=== PATIENT | female | born 1995 | race Caucasian/White ===

== ENCOUNTER 2017-09-12 09:09 | Emergency (ER) | payer OTHER, BC ==
[2017-09-12 10:02] LABS: Absolute Lymphocytes (CBC) 2.2 K/uL (0.7-4.9); Absolute Monocytes 0.4 K/uL (0.1-1.3); Absolute Neutrophil 6.3 K/uL (1.8-8.0); Basophils % 0.4 % (0-1.3); Eosinophils % 2.8 % (0-4.4); Hematocrit 38.6 % (36.0-45.0); Lymphocytes % 24.1 % (15.3-44.8); MCH 29.9 pg (27.0-35.0); MCV 90.6 fL (80-100); MPV 8.6 fL (7.6-11.3); Monocytes % 4.6 % (3.3-12.3); RBC Red Blood Cell Count 4.26 M/uL (3.86-4.86)
[2017-09-12 10:18] LABS: Potassium 4.1 mmol/L (3.5-5.1)
--- NOTE | 2017-09-12 11:03 | RAD REPORT ---
EXAM DESCRIPTION: CT - Head C Spine Cap Daphne Lyles - 09/12/2017 10:27 am CLINICAL HISTORY: Head and neck injury with chest and abdominal pain lawnmower injury with trauma. H ead and neck pain. TECHNIQUE: Computed axial tomography of the head and cervical spine was obtained. Coronal and sagitt al reconstruction was performed Computed axial tomography of the chest, abdomen and pelvis was obtained. Contrast was not requested. All CT scans are performed using dose optimization technique as appropriate and may include automated exposure control or mA/KV adjustment according to patient size. COMPARISON: None FINDINGS The evaluation of the mediastinum, katy, vessels, solid organs and bowel is limited secondary to lack of contrast administration. An intracranial bleed is not seen. The ventricles are normal caliber. An extra-axial fluid collection is not present. Fluid within the sinuses/mastoids is not seen A cervical fracture is not seen. No dislocation is noted. A mediastinal hematoma is not seen. A pleural effusion is not present. A pericardial effusion is not seen. A lung contusion is not present. Calcified hilar lymph nodes are present. Calcified lung granul omas are seen. The liver, spleen, pancreas, adrenals, kidneys and bladder appear grossly normal. A small umbilical hernia is present. A 3.7 centimeter right ovarian cyst is suspected without significant free-fluid. . IMPRESSION: 1. No acute intracranial abnormality is seen. 2. A cervical fracture is not visualized. If the patient continues have symptoms to suggest intracran ial/spinal cord pathology then MRI be recommended. 3. No traumatic injury involving the chest/ abdomen/pelvis.
--- NOTE | 2017-09-12 11:04 | EDPHYS ---
Physician Documentation [facility] Name: Pauline Sandra Age: 21 yrs Sex: Female : 1995 Arrival Date: 09/12/2017 Time: 09:09 Bed 4 Private MD: ED Physician Nazario Wade HPI: 09/12 09:32 This 21 yrs old Female presents to ER via EMS with complaints of Trauma ps1 Complaint. 09:32 patient riding lawnmower and fell backwards on her. She did not hit head. No LOC. Has ps1 back pain. Pain rated moderate. No FND. . 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 - Immunization history: Last tetanus immunization: - up to date. - Social history:: Smoking status: Patient uses tobacco products, denies chronic smoking, but will smoke occasionally, Patient/guardian denies using alcohol, street drugs. - Ebola Screening: : Patient negative for fever greater than or equal to 101.5 degrees Fahrenheit, and additional compatible Ebola Virus Disease symptoms Patient denies exposure to infectious person Patient denies travel to an Ebola-affected area in the 21 days before illness onset No symptoms or risks identified at this time. ROS: 09:32 Constitutional: Negative for fever, chills, and weight loss, Eyes: Negative for injury, ps1 pain, redness, and discharge, Cardiovascular: Negative for chest pain, palpitations, and edema, Respiratory: Negative for shortness of breath, cough, wheezing, and pleuritic chest pain, Abdomen/GI: Negative for abdominal pain, nausea, vomiting, diarrhea, and constipation, MS/Extremity: Negative for injury and deformity, Skin: Negative for injury, rash, and discoloration, Neuro: Negative for headache, weakness, numbness, tingling, and seizure. 09:32 Back: Positive for pain at rest, pain with movement, of the lumbar area. Exam: 09:32 Constitutional: This is a well developed, well nourished patient who is awake, alert, ps1 and in no acute distress. Head/Face: Normocephalic, atraumatic. Eyes: Pupils equal round and reactive to light, extra-ocular motions intact. Lids and lashes normal. Conjunctiva and sclera are non-icteric and not injected. Chest/axilla: Normal chest wall appearance and motion. Nontender with no deformity. No lesions are appreciated. Cardiovascular: Regular rate and rhythm. No gallops, murmurs, or rubs. Normal PMI, no JVD. No pulse deficits. Respiratory: Lungs have equal breath sounds bilaterally, clear to auscultation and percussion. No rales, rhonchi or wheezes noted. No increased work of breathing, no retractions or nasal flaring. Abdomen/GI: Soft, non-tender, with normal bowel sounds. No distension or tympany. No guarding or rebound. No evidence of tenderness throughout. Skin: Warm, dry with normal turgor. Normal color with no rashes, no lesions, and no evidence of cellulitis. MS/ Extremity: Pulses equal, no cyanosis. Neurovascular intact. Full, normal range of motion. Neuro: Awake and alert, GCS 15, oriented to person, place, time, and situation. Cranial nerves II-XII grossly intact. Sensory grossly intact. 09:32 Back: pain, that is moderate, of the lumbar area, ROM is painful, lordosis, that is moderate, muscle spasm, is appreciated in the left low back and right low back. Vital Signs: 09:14 BP 116 / 64; Pulse 97; Resp 16; Temp 98.2; Pulse Ox 98% on R/A; Weight 116.12 kg; iw Height 5 ft. 7 in. (170.18 cm); Pain 7/10; 09:27 BP 114 / 71; Pulse 77; Resp 14; Pulse Ox 99% on R/A; ch 11:02 BP 103 / 63; Pulse 71; Resp 14; Temp 98.3; Pulse Ox 99% on R/A; Pain 6/10; ch 11:37 BP 109 / 73; Pulse 58; Resp 18; Temp 97.8; Pulse Ox 99% on R/A; Pain 6/10; ch 09:14 Body Mass Index 40.09 (116.12 kg, 170.18 cm) iw [place] Coma Score: 09:29 Eye Response: spontaneous(4). Verbal Response: oriented(5). Motor Response: obeys ch commands(6). Total: 15. 11:02 Eye Response: spontaneous(4). Verbal Response: oriented(5). Motor Response: obeys ch commands(6). Total: 15. Trauma Score (Adult): 09:14 Eye Response: spontaneous(1); Verbal Response: oriented(1); Motor Response: obeys iw commands(2); Systolic BP: > 89 mm Hg(4); Respiratory Rate: 10 to 29 per min(4); Migel Score: 15; Trauma Score: 12 11:02 Eye Response: spontaneous(1); Verbal Response: oriented(1); Motor Response: obeys ch commands(2); Systolic BP: > 89 mm Hg(4); Respiratory Rate: 10 to 29 per min(4); [place] Score: 15; Trauma Score: 12 MDM: 09:37 Patient medically screened. ps1 11:18 Differential diagnosis: C spine fracture, T spine fracture, L spine fracture. Data ps1 reviewed: vital signs, nurses notes, lab test result(s), radiologic studies, CT scan. Counseling: I had a detailed discussion with the patient and/or guardian regarding: radiology results, to return to the emergency department if symptoms worsen or persist or if there are any questions or concerns that arise at home. ED course: no acute traumatic injury identified. . 09/12 09:32 Order name: Basic Metabolic Panel; Complete Time: 10:34 ps1 09/12 09:32 Order name: CBC with Diff; Complete Time: 10:12 ps1 09/12 09:32 Order name: CT Traumagram (Head C Spine CAP wo con); Complete Time: 11:04 ps1 09/12 09:32 Order name: Creatinine for Radiology; Complete Time: 10:34 ps1 09/12 09:32 Order name: Type And Screen ps1 09/12 09:32 Order name: Labs collected and sent; Complete Time: 10:00 ps1 Administered Medications: No medications were administered Disposition: 09/12/17 11:21 Discharged to Home. Impression: Acute lower back pain, lumbago, traumatic injury from lawnmower accident, fall. - Condition is Stable. - Discharge Instructions: Lumbosacral Strain, Muscle Cramps and Spasms. - Prescriptions for Anaprox DS 550 mg Oral Tablet - take 1 tablet by ORAL route every 12 hours As needed; 20 tablet. Robaxin 500 mg Oral Tablet - take 2 tablet by ORAL route every 6 hours As needed; 40 tablet. Medrol (Fabian) 4 mg Oral Tablets, Dose Pack - take 1 tablet by ORAL route as directed - follow package instructions; 1 packet. - Medication Reconciliation Form, Thank You Letter, Antibiotic Education, Prescription Opioid Use form. - Work release form (09/12/17 11:40). - Follow up: Private Physician; When: As needed; Reason: Recheck today's complaints, Continuance of care, Re-evaluation by your physician. Follow up: Emergency Department; When: As needed; Reason: Worsening of condition. - Problem is new. - Symptoms have improved. Signatures: Dispatcher [employer] Vandana Taylor RN RN ch Williams, Irene, RN RN Nazario Wade MD MD ps1 Corrections: (The following items were deleted from the chart) 11:18 11:03 Hospitalization Ordered by Flavia Martinez MD for Inpatient Admission. Preliminary ps1 diagnosis is Hepatic encephalopathy; Hyperammonemia; Altered Mental Status. Bed requested for Intensive Care Unit. Status is Inpatient Admission. Condition is Fair. Problem is an acute exacerbation. Symptoms are unchanged. UTI on Admission? No. ps1 11:20 11:03 Data reviewed: vital signs, nurses notes, lab test result(s), radiologic studies, ps1 CT scan, and as a result, I will admit patient, Place NG tube and give lactulose, ps1 11:40 11:21 09/12/2017 11:21 Discharged to Home. Impression: Acute lower back pain; lumbago; ch traumatic injury from lawnmower accident; fall. Condition is Stable. Forms are Medication Reconciliation Form, Thank You Letter, Antibiotic Education, Prescription Opioid Use. Follow up: Private Physician; When: As needed; Reason: Recheck today's complaints, Continuance of care, Re-evaluation by your physician. Follow up: Emergency Department; When: As needed; Reason: Worsening of condition. Problem is new. Symptoms have improved. ps1
--- NOTE | 2017-09-12 11:04 | ER ---
Nurse's Notes [facility] Name: Pauline Sandra Age: 21 yrs Sex: Female : 1995 Arrival Date: 09/12/2017 Time: 09:09 Bed 4 Private MD: Diagnosis: Acute lower back pain;lumbago;traumatic injury from lawnmower accident;fall Presentation: 09/12 09:10 Presenting complaint: EMS states: pt was on a riding senior sourcing manager, ran over a "tarp", iw mower then tipped back and landed on top of her hips and legs, pt denies hitting head, denies chest pain, EMS reports that mower was removed from pt quickly, pt c/o low back, and familia hip pain, /10. denies numbness or tingling in legs. Care prior to arrival: Cervical collar in place. Placed on backboard. Mechanism of Injury: Crush injury from riding senior sourcing manager that weighed approximately 450 pounds. Patient was trapped for seconds. Trauma event details: Injury occurred in the [facility], Injury occurred: at home. Injury occurred: September 12, 2017 Injury occurred at: 08:40. 09:10 Method Of Arrival: EMS: [facility] iw 09:10 Acuity: BARBY 2 iw 09:18 Transition of care: patient was not received from another setting of care. Onset of iw symptoms was September 12, 2017. Risk Assessment: Do you want to hurt yourself or someone else? Patient reports no desire to harm self or others. Initial Sepsis Screen: Does the patient meet any 2 criteria? No. Patient's initial sepsis screen is negative. Does the patient have a suspected source of infection? No. Patient's initial sepsis screen is negative. BIT GATHERER: 11:39 LMP 08/26/2017 Trauma Activation: Not Applicable Physician: ED Physician; Name: ; Notified At: ; Arrived At: Physician: General Surgeon; Name: ; Notified At: ; Arrived At: Physician: Radiology; Name: ; Notified At: ; Arrived At: Physician: Respiratory; Name: ; Notified At: ; Arrived At: Physician: Lab; Name: ; Notified At: ; Arrived At: Historical: - Allergies: 09:16 NKA; iw - Home Meds: 09:16 None [Active]; iw - PMHx: 09:16 None; iw - PSHx: 09:16 None; iw - Immunization history:: Adult Immunizations up to date, Last tetanus immunization: up to date. - Immunization history: Last tetanus immunization: - up to date. - Social history:: Smoking status: Patient uses tobacco products, denies chronic smoking, but will smoke occasionally, Patient/guardian denies using alcohol, street drugs. - Ebola Screening: : Patient negative for fever greater than or equal to 101.5 degrees Fahrenheit, and additional compatible Ebola Virus Disease symptoms Patient denies exposure to infectious person Patient denies travel to an Ebola-affected area in the 21 days before illness onset No symptoms or risks identified at this time. Screenin:17 Abuse screen: Denies threats or abuse. Denies injuries from another. Tuberculosis iw screening: No symptoms or risk factors identified. 09:27 Nutritional screening: No deficits noted. Fall Risk None identified. ch Primary Survey: 09:17 A: Airway: patent. Breathing/Chest: Respiratory pattern: regular, Respiratory effort: iw spontaneous, unlabored, Breath sounds: clear, bilaterally. Chest inspection: symmetrical rise and fall of the chest. Circulation: Cardiac rhythm: sinus rhythm Heart tones present. Pulses: palpable right radial artery, right posterior tibial artery, left radial artery and left posterior tibial artery. Skin color: pink, Skin temperature: warm, dry. Disability Alert. 09:23 Reassessment Airway Airway Patent Oxygen No O2 Breathing/Chest Respiratory pattern iw Regular Respiratory effort Spontaneous Unlabored Chest inspection Symmetrical Circulation Heart tones Present Disability Alert. Secondary Survey: 09:18 HEENT: No deficits noted. Gastrointestinal: Abdomen is soft, flat, Palpation No deficit iw noted. Musculoskeletal: Range of motion: intact in all extremities, Reports pain in back and pelvis. Assessment: 09:27 General: Appears in no apparent distress. comfortable, Behavior is calm, cooperative, ch appropriate for age. 09:59 Reassessment: Patient appears in no apparent distress at this time. Patient and/or ch family updated on plan of care and expected duration. Pain level reassessed. Patient is alert, oriented x 3, equal unlabored respirations, skin warm/dry/pink. 10:00 Reassessment: pt states she does not want any pain medications at this time. pt states ch she does not want any medications. pt has call jerson, instructed to notify us if that changes. 11:02 Reassessment: Patient appears in no apparent distress at this time. No changes from previously documented assessment. Patient and/or family updated on plan of care and expected duration. Pain level reassessed. Patient is alert, oriented x 3, equal unlabored respirations, skin warm/dry/pink. Vital Signs: 09:14 BP 116 / 64; Pulse 97; Resp 16; Temp 98.2; Pulse Ox 98% on R/A; Weight 116.12 kg; iw Height 5 ft. 7 in. (170.18 cm); Pain 7/10; 09:27 BP 114 / 71; Pulse 77; Resp 14; Pulse Ox 99% on R/A; ch 11:02 BP 103 / 63; Pulse 71; Resp 14; Temp 98.3; Pulse Ox 99% on R/A; Pain 6/10; ch 11:37 BP 109 / 73; Pulse 58; Resp 18; Temp 97.8; Pulse Ox 99% on R/A; Pain 6/10; ch 09:14 Body Mass Index 40.09 (116.12 kg, 170.18 cm) iw [place] Coma Score: 09:29 Eye Response: spontaneous(4). Verbal Response: oriented(5). Motor Response: obeys commands(6). Total: 15. 11:02 Eye Response: spontaneous(4). Verbal Response: oriented(5). Motor Response: obeys commands(6). Total: 15. Trauma Score (Adult): 09:14 Eye Response: spontaneous(1); Verbal Response: oriented(1); Motor Response: obeys commands(2); Systolic BP: > 89 mm Hg(4); Respiratory Rate: 10 to 29 per min(4); Migel Score: 15; Trauma Score: 12 11:02 Eye Response: spontaneous(1); Verbal Response: oriented(1); Motor Response: obeys commands(2); Systolic BP: > 89 mm Hg(4); Respiratory Rate: 10 to 29 per min(4); [place] Score: 15; Trauma Score: 12 ED Course: 09:09 Patient arrived in ED. ch 09:11 Vandana Akhtar, STANLEY is Primary Nurse. ch 09:15 Triage completed. iw 09:16 Nazario Wade MD is Attending Physician. ps1 09:17 Patient has correct armband on for positive identification. Bed in low position. Side iw rails up X2. Pulse ox on. NIBP on. 09:17 Patient maintains SpO2 saturation greater than 95% on room air. Thermoregulation: warm iw blanket given to patient. 09:18 Arm band placed on. iw 09:27 No provider procedures requiring assistance completed. ch 09:29 Patient maintains SpO2 saturation greater than 95% on room air. ch 09:39 Radiology exam delayed due to test not completed at this time. vr 10:00 Inserted saline lock: 20 gauge in right antecubital area, using aseptic technique. Blood collected. 10:27 CT completed. Patient tolerated procedure well. Patient moved to CT via stretcher. vr Patient moved back from CT. 10:28 CT Traumagram (Head C Spine CAP wo con) In Process Unspecified. EDMS 11:03 Flavia Martinez MD is Hospitalizing Provider. ps1 11:37 IV discontinued, intact, bleeding controlled, No redness/swelling at site. Pressure dressing applied. Administered Medications: No medications were administered Intake: 09:29 PO: 0ml; Total: 0ml. ch Outcome: 11:03 Decision to Hospitalize by Provider. ps1 11:21 Discharge ordered by . ps1 11:37 Discharged to home ambulatory, with family. ch 11:37 Condition: stable 11:37 Discharge instructions given to patient, family, Instructed on discharge instructions, follow up and referral plans. no drinking with medication, no driving heavy equipment, medication usage, Demonstrated understanding of instructions, follow-up care, medications, Prescriptions given X 3. 11:39 Patient's length of stay in the Emergency Department was greater than [address] resultsPatient's length of stay extended due to 11:40 Patient left the ED. Signatures: Dispatcher [employer] EDMS Vandana Akhtar RN RN ch Williams, Irene, RN RN iw Davis, Victoria vr Singer, Phillip, MD MD ps1
[2017-09-12 11:56] VITALS: O2SAT 99
[2017-09-12 12:05] VITALS: BP 109/73; TEMP 97.8
== END 2017-09-12 11:40 | disposition home or self-care (01) ==
LOC: ER 09:09
DX: M54.5 Low back pain (principal); W31.89XA Contact with other specified machinery, initial encounter; Y93.89 Activity, other specified; Y92.9 Unspecified place or not applicable; Z72.0 Tobacco use
CPT/HCPCS: 36415; 70450; 71250; 72125; 80048; 85025; 86850; 86870; 86900; 86901; 99285

== ENCOUNTER 2022-12-30 23:29 | Emergency (ER) | payer BC, SELFPAY ==
--- OUTSIDE RECORDS SUMMARY | 2022-12-30 23:36 | XMS REPORT | Continuity of Care Document ---
:1995 Author Organization [facility] t Address [address] [facility] [address] [place] [address] Care Team Providers Name Role Phone Pcp, Patient Does Not Have A Primary Care Physician [id number] AMANDA STEVENSON Attending Clinician Unavailable Amanda Stevenson MD Attending Clinician Doctor Unassigned, [place] Attending Clinician Unavailable Pat Page MD Attending Clinician Cameron Lewis CRNA Attending Clinician Teddy Saldivar MD, [place] Attending Clinician Only, [facility] Test Attending Clinician Unavailable Artemio Zuluaga MD Attending Clinician ARTEMIO ZULUAGA Attending Clinician Unavailable Ultrasound, [facility] Attending Clinician Unavailable Aysha Garcia MD, [place] Attending Clinician [phone], [facility] Lab Attending Clinician Unavailable Nurse, [facility] Attending Clinician Unavailable Lorna Juan PA-C Attending Clinician MARIO TA Attending Clinician Unavailable LORNA JUAN Attending Clinician Unavailable Gildardo Ogden MD Attending Clinician 5, [facility] Usg Room Attending Clinician Unavailable Ritchie MD, Darshan F Attending Clinician Faculty, Leobardo [facility] Attending Clinician Unavailable Nilam Lafleur MD Attending Clinician VINEET GERARDO Attending Clinician Unavailable Vineet Gerardo MD Attending Clinician Fabián ROMERO Fam Newmanan Attending Clinician Lab, Adc Fam Pob I Attending Clinician Unavailable Nancy Torres Attending Clinician Amanda Stevenson MD Admitting Clinician AMANDA STEVENSON Admitting Clinician Unavailable Payers Payer Name Policy Type Policy Number Effective Date Expiration Date Tasia zhu [employer] [place] [id number] 2018 00:00:00 Problems Condition Condition Condition Status Onset Resolution Last Treating Co mments Source Name Details Category Date Date Treatment Clinician Date Urinary Urinary Disease Active 2020-03 Overview: Univ ers retention retention 03-25 Formattin i ty of 00:00: g of this [place] 00 note Medical might be Branch different from the original. Postpartu m Vacuum-ass Vacuum-ass Disease Active 2020-03 U nivers isted isted -10 ity of vaginal vaginal 00:00: [place] delivery delivery 00 Medica l Branch Obstetric Obstetric Disease Active 2020-03 Overview: Univers vaginal vaginal 1-10 Formattin ity o f laceration laceration 00:00: g of this [place] without without 00 note Medical perineal perineal might be Bran ch laceration laceration different from the original. Right sulcal laceratio n- repaired in the OR Encounter Encounter Disease Active 2020-03 Uni vers for for 03-22 ity of elective elective 00:00: [place] induction induction 00 Medi brittany of labor of labor Branch Morbid Morbid Disease Active Univers obesity obesity 7- it[place] of with body [place] mass index mass index 00 Me dical of of Branch 40.0-49.9 40.0-49.9 Morbid Morbid Disease Active Univers obesity obesity 7-02 ity of with body with body 00:00[place] mass index mass index 00 Me dical of of Branch 40.0-49.9 40.0-49.9 28 weeks 28 weeks Disease Active 2021-0 Unive rs gestation gestation 6-08 ity of of of 00:00: [place] 00 [facility] 32 weeks 32 weeks Disease Active 2021-0 Unive rs gestation gestation 6-08 ity of of of 00:00: [place] 00 [facility] 17 weeks 17 weeks Disease Active 2021-0 Unive rs gestation gestation 6-08 ity of of of 00:00: [place] 00 [facility] 20 weeks 20 weeks Disease Active 2021-0 Unive rs gestation gestation 6-08 ity of of of 00:00: [place] 00 [facility] 24 weeks 24 weeks Disease Active 2021-0 Unive rs gestation gestation 6-08 ity of of of 00:00: [place] 00 [facility] 34 weeks 34 weeks Disease Active 2021-0 Unive rs gestation gestation 6-08 ity of of of 00:00: [place] 00 [facility] 36 weeks 36 weeks Disease Active 1-0 Unive rs gestation gestation 6-08 ity of of of 00:00: [place] 00 [facility] 37 weeks 37 weeks Disease Active 1-0 Unive rs gestation gestation 6-08 ity of of of 00:00: [place] 00 [facility] 38 weeks 38 weeks Disease Active 1-0 Unive rs gestation gestation 6-08 ity of of of 00:00: [place] 00 [facility] High-risk High-risk Disease Active 2020-0 Uni vers 5-24 ity of in third in third 00:00: [place] trimester trimester 00 [facility] Uses oral Uses oral Disease Active Overview: Univers contracept contracept 4-08 06/19/18 - ity of ion ion 00:00: OCPs [place] 00 started Medical Branch Encounter Encounter Disease Active Overview: Univers for for 3-11 05/23/18 - ity of surveillan surveillan 00:00: Nexplanon [place] ce of ce of 00 implant Medical implantabl implantabl removed [place] e e by IR subdermal subdermal contracept contracept sofia sofia History of History of Disease Active Overview : Univers ovarian ovarian 5-13 06/27/18 - ity o f cyst cyst 00:00: pelvic US [place] 00 was Medical normal Branch Obesity Obesity Disease Active Univers affecting affecting 1-26 it[place] of 00:[place] in third in third 00 Medica l trimester trimester Bran ch Morbid Morbid Disease Active Univers obesity obesity 1-26 ity of 00:00: [address] Branch Tobacco Tobacco Disease Active Overview: Univ ers use use 06-06 Formattin ity of disorder disorder 00:00: g of this [place] 00 note Medical might be Branch different from the original. Stopped smoking in July 2020 Allergies, Adverse Reactions, Alerts Allergy Allergy Status Severity Reaction(s) Onset Inactive Treating Comm ents Source Name Type Date Date Clinician NO KNOWN Drug Active Univers ALLERGIE Class ity of S [facility] Social History Social Habit Start Date Stop Date Quantity Comments Source ASSERTION 2020-05-04 University of 00:00:00 [facility] Sexual orientation Univer sity of [facility] History SDNY University o [facility] SDOH University o f Alcohol Std Drinks [facility] History [facility] o f Alcohol Binge [facility] Branch Exposure to 2022-03-02 2022-03-12 Not sure University of SARS-CoV-2 (event) 00:00:00 10:08:00 [facility] History of Social 2022-03-12 2022-03-12 Univers ity of function 00:00:00 00:00:00 [facility] Education 2021-01-20 2021-01-20 13 University of 00:00:00 00:00:00 [facility] History of tobacco 2020-08-05 Cigarette Smoker University of use 00:00:00 [facility] Alcohol intake 2018-09-19 2018-09-19 Current drinker Unive rsity of 00:00:00 00:00:00 of alcohol [facility] (finding) Branch Cigarettes smoked 2018-06-19 2018-06-19 Univers ity of current (pack per 00:00:00 00:00:00 [facility] ) - Reported Branch Cigarette 2018-06-19 2018-06-19 University of pack-years 00:00:00 00:00:00 [facility] Tobacco use and 2018-06-19 2018-06-19 Smokeless Universit y of exposure 00:00:00 00:00:00 tobacco non-user [facility] dical [place] Tobacco Comment 2018-06-19 2018-06-19 10 ciggs a day Unive rsity of 00:00:00 00:00:00 [facility] Alcohol Comment 2018-06-19 2018-06-19 every 6 months Unive rsity of 00:00:00 00:00:00 [facility] Sex [birth year] At [birth year] Universit y of 00:00:00 00:00:00 [facility] Smoking Status Start Date Stop Date Source Ex-smoker 2020-08-19 00:00:00 2020-08-19 00:00:00 Universi ty [facility] Smokes tobacco daily 2018-06-19 00:00:00 [facility] [place] [facility] ity [facility] Medications Ordered Filled Start Stop Current Ordering Indication Dosage Frequency Signature Comments Components Source Medication Medication Date Date Medication? Clinician (SIG) Name Name LOESTRIN FE 2021-03 Yes [id number] 1{tbl} Take 1 Univers (LOESTRIN 2-30 tablet by ity o [employer] 04/02) 1 00:00: mouth in [place] mg-20 mcg 00 the Medical (21)/75 mg morning. Branc h (7) tablet LOESTRIN FE 2021-03 Yes [id number] 1{tbl} Take 1 Univers (LOESTRIN 2-30 tablet by [employer]Loc[employer] o f 04/02) 1 00:00: mouth in [place] mg-20 mcg 00 the Medical (21)/75 mg morning. Branc h (7) tablet LOESTRIN FE 2021-03 Yes [id number] 1{tbl} Take 1 Univers (LOESTRIN 2-30 tablet by [employer] o [employer] 04/02) 1 00:00: mouth in [place] mg-20 mcg 00 the Medical (21)/75 mg morning. Branc h (7) tablet norethindro 2020-03 Yes [id number] 1{tbl} Take 1 Univers ne-ethinyl 2-21 tablet by ity of estradiol 00:00: mouth [place] (LOESTRIN 00 daily. Medical 04/02, ,) Branch 1-20 mg-mcg per tablet norethindro 2020-03 Yes [id number] 1{tbl} Take 1 Univers ne-ethinyl 2-21 tablet by ity of estradiol 00:00: mouth [place] (LOESTRIN 00 daily. Medical ,) Branch 1-20 mg-mcg per tablet norethindro 2020-03 Yes [id number] 1{tbl} Take 1 Univers ne-ethinyl 2-21 tablet by ity of estradiol 00:00: mouth [place] (LOESTRIN 00 daily. Medical ,) Branch 1-20 mg-mcg per tablet norethindro 2020-03- No [id number] 1{tbl} Take 1 Univers ne-ethinyl 2-21 12-30 tablet by ity of estradiol 00:00: 00:00 mouth [place] (LOESTRIN 00 :00 daily. Medical ,) Branch 1-20 mg-mcg per tablet norethindro 2020-03- No [id number] 1{tbl} Take 1 Univers ne-ethinyl 2-21 12-30 tablet by ity of estradiol 00:00: 00:00 mouth [place] (LOESTRIN 00 :00 daily. Medical ,) Branch 1-20 mg-mcg per tablet PNV 2020-03- No [id number] Take by Unive rs no.95/melly 1-12 11-12 mouth. ity o f us 10:27: 00:00 [place] fum/folic 21 :00 Medical ac Branch ( ORAL) 2020-03- No Take by Unive rs 25/iron 1-12 11-12 mouth. ity of fum/folic/d 10:27: 00:00 [place] young 21 :00 Medical (-1 Branch ORAL) PNV 2020-03- No [id number] Take by Unive rs no.95/melly 1-12 11-12 mouth. ity o f us 10:27: 00:00 [place] fum/folic 21 :00 Medical ac Branch ( ORAL) 2020-03- No Take by Unive rs 25/iron 1-12 11-12 mouth. ity of fum/folic/d 10:27: 00:00 [place] young 21 :00 Medical (-1 Branch ORAL) 2020-03 Yes [id number] 1{tbl} Take 1 Univers vitamin 1-12 [id number] tablet by ity o f w/FA tablet 00:00: mouth [place] 00 daily. Medical Branch docusate 2020-03 Yes [id number] 240mg Take 1 Univers calcium 240 1-12 [id number] capsule by ity of mg capsule 00:00: mouth once [place] 00 daily as Medical needed for Branch Constipati on. ibuprofen 2020-03 Yes [id number] 600mg Take 1 Univers 600 mg 1-12 [id number] tablet by ity of tablet 00:00: mouth [place] 00 every 6 Medical (six) Branch hours as needed (Pain). Take with food or milk. phenazopyri 2020-03 Yes [id number] 100mg Take 1 Univers dine 1-12 [id number] tablet by ity of (PYRIDIUM) 00:00: mouth 2 [place] 100 mg 00 (two) Medical tablet times Branch daily. 2020-03 Yes [id number] 1{tbl} Take 1 Univers vitamin 1-12 [id number] tablet by ity o f w/FA tablet 00:00: mouth [place] 00 daily. Medical Branch docusate 2020-03 Yes [id number] 240mg Take 1 Univers calcium 240 1-12 [id number] capsule by ity of mg capsule 00:00: mouth once [place] 00 daily as Medical needed for Branch Constipati on. ibuprofen 2020-03 Yes [id number] 600mg Take 1 Univers 600 mg 1-12 [id number] tablet by ity of tablet 00:00: mouth [place] 00 every 6 Medical (six) Branch hours as needed (Pain). Take with food or milk. phenazopyri 2020-03 Yes [id number] 100mg Take 1 Univers dine 1-12 [id number] tablet by ity of (PYRIDIUM) 00:00: mouth 2 [place] 100 mg 00 (two) Medical tablet times Branch daily. 2020-03 Yes [id number] 1{tbl} Take 1 Univers vitamin 1-12 [id number] tablet by ity o f w/FA tablet 00:00: mouth [place] 00 daily. Medical Branch docusate 2020-03 Yes [id number] 240mg Take 1 Univers calcium 240 1-12 [id number] capsule by ity of mg capsule 00:00: mouth once [place] 00 daily as Medical needed for Branch Constipati on. ibuprofen 2020-03 Yes [id number] 600mg Take 1 Univers 600 mg 1-12 [id number] tablet by ity of tablet 00:00: mouth [place] 00 every 6 Medical (six) Branch hours as needed (Pain). Take with food or milk. phenazopyri 2020-03 Yes [id number] 100mg Take 1 Univers dine 1-12 [id number] tablet by ity of (PYRIDIUM) 00:00: mouth 2 [place] 100 mg 00 (two) Medical tablet times Branch daily. 2020-03 Yes [id number] 1{tbl} Take 1 Univers vitamin 1-12 [id number] tablet by ity o f w/FA tablet 00:00: mouth [place] 00 daily. Medical Branch docusate 2020-03 Yes [id number] 240mg Take 1 Univers calcium 240 1-12 [id number] capsule by ity of mg capsule 00:00: mouth once [place] 00 daily as Medical needed for Branch Constipati on. ibuprofen 2020-03 Yes [id number] 600mg Take 1 Univers 600 mg 1-12 [id number] tablet by ity of tablet 00:00: mouth [place] 00 every 6 Medical (six) Branch hours as needed (Pain). Take with food or milk. phenazopyri 2020-03 Yes [id number] 100mg Take 1 Univers dine 1-12 [id number] tablet by ity of (PYRIDIUM) 00:00: mouth 2 [place] 100 mg 00 (two) Medical tablet times Branch daily. 2020-03 Yes [id number] 1{tbl} Take 1 Univers vitamin 1-12 [id number] tablet by ity o f w/FA tablet 00:00: mouth [place] 00 daily. Medical Branch docusate 2020-03 Yes [id number] 240mg Take 1 Univers calcium 240 1-12 [id number] capsule by ity of mg capsule 00:00: mouth once [place] 00 daily as Medical needed for Branch Constipati on. ibuprofen 2020-03 Yes [id number] 600mg Take 1 Univers 600 mg 1-12 [id number] tablet by ity of tablet 00:00: mouth [place] 00 every 6 Medical (six) Branch hours as needed (Pain). Take with food or milk. 2020-03 Yes [id number] 1{tbl} Take 1 Univers vitamin 1-12 [id number] tablet by ity o f w/FA tablet 00:00: mouth [place] 00 daily. Medical Branch docusate 2020-03 Yes [id number] 240mg Take 1 Univers calcium 240 1-12 [id number] capsule by ity of mg capsule 00:00: mouth once [place] 00 daily as Medical needed for Branch Constipati on. ibuprofen 2020-03 Yes [id number] 600mg Take 1 Univers 600 mg 1-12 [id number] tablet by ity of tablet 00:00: mouth [place] 00 every 6 Medical (six) Branch hours as needed (Pain). Take with food or milk. 2020-03 Yes [id number] 1{tbl} Take 1 Univers vitamin 1-12 [id number] tablet by ity o f w/FA tablet 00:00: mouth [place] 00 daily. Medical Branch docusate 2020-03 Yes [id number] 240mg Take 1 Univers calcium 240 1-12 [id number] capsule by ity of mg capsule 00:00: mouth once [place] 00 daily as Medical needed for Branch Constipati on. ibuprofen 2020-03 Yes [id number] 600mg Take 1 Univers 600 mg 1-12 [id number] tablet by ity of tablet 00:00: mouth [place] 00 every 6 Medical (six) Branch hours as needed (Pain). Take with food or milk. 2020-03 Yes [id number] 1{tbl} Take 1 Univers vitamin 1-12 [id number] tablet by ity o f w/FA tablet 00:00: mouth [place] 00 daily. Medical Branch docusate 2020-03 Yes [id number] 240mg Take 1 Univers calcium 240 1-12 [id number] capsule by ity of mg capsule 00:00: mouth once [place] 00 daily as Medical needed for Branch Constipati on. ibuprofen 2020-03 Yes [id number] 600mg Take 1 Univers 600 mg 1-12 [id number] tablet by ity of tablet 00:00: mouth [place] 00 every 6 Medical (six) Branch hours as needed (Pain). Take with food or milk. 2020-03 Yes [id number] 1{tbl} Take 1 Univers vitamin 1-12 [id number] tablet by ity o f w/FA tablet 00:00: mouth [place] 00 daily. Medical Branch docusate 2020-03 Yes [id number] 240mg Take 1 Univers calcium 240 1-12 [id number] capsule by ity of mg capsule 00:00: mouth once [place] 00 daily as Medical needed for Branch Constipati on. ibuprofen 2020-03 Yes [id number] 600mg Take 1 Univers 600 mg 1-12 [id number] tablet by ity of tablet 00:00: mouth [place] 00 every 6 Medical (six) Branch hours as needed (Pain). Take with food or milk. 2020-03 Yes [id number] 1{tbl} Take 1 Univers vitamin 1-12 [id number] tablet by ity o f w/FA tablet 00:00: mouth [place] 00 daily. Medical Branch docusate 2020-03 Yes [id number] 240mg Take 1 Univers calcium 240 1-12 [id number] capsule by ity of mg capsule 00:00: mouth once [place] 00 daily as Medical needed for Branch Constipati on. ibuprofen 2020-03 Yes [id number] 600mg Take 1 Univers 600 mg 1-12 [id number] tablet by ity of tablet 00:00: mouth [place] 00 every 6 Medical (six) Branch hours as needed (Pain). Take with food or milk. 2020-03 Yes [id number] 1{tbl} Take 1 Univers vitamin 1-12 [id number] tablet by ity o f w/FA tablet 00:00: mouth [place] 00 daily. Medical Branch docusate 2020-03 Yes [id number] 240mg Take 1 Univers calcium 240 1-12 [id number] capsule by ity of mg capsule 00:00: mouth once [place] 00 daily as Medical needed for Branch Constipati on. ibuprofen 2020-03 Yes [id number] 600mg Take 1 Univers 600 mg 1-12 [id number] tablet by ity of tablet 00:00: mouth [place] 00 every 6 Medical (six) Branch hours as needed (Pain). Take with food or milk. 2020-03 Yes [id number] 1{tbl} Take 1 Univers vitamin 1-12 [id number] tablet by ity o f w/FA tablet 00:00: mouth [place] 00 daily. Medical Branch docusate 2020-03 Yes [id number] 240mg Take 1 Univers calcium 240 1-12 [id number] capsule by ity of mg capsule 00:00: mouth once [place] 00 daily as Medical needed for Branch Constipati on. ibuprofen 2020-03 Yes [id number] 600mg Take 1 Univers 600 mg 1-12 [id number] tablet by ity of tablet 00:00: mouth [place] 00 every 6 Medical (six) Branch hours as needed (Pain). Take with food or milk. docusate 2020-03 Yes [id number] 240mg Take 1 Univers calcium 240 1-12 [id number] capsule by ity of mg capsule 00:00: mouth once [place] 00 daily as Medical needed for Branch Constipati on. ibuprofen 2020-03 Yes [id number] 600mg Take 1 Univers 600 mg 1-12 [id number] tablet by ity of tablet 00:00: mouth [place] 00 every 6 Medical (six) Branch hours as needed (Pain). Take with food or milk. docusate 2020-03 Yes [id number] 240mg Take 1 Univers calcium 240 1-12 [id number] capsule by ity of mg capsule 00:00: mouth once [place] 00 daily as Medical needed for Branch Constipati on. ibuprofen 2020-03 Yes [id number] 600mg Take 1 Univers 600 mg 1-12 [id number] tablet by ity of tablet 00:00: mouth [place] 00 every 6 Medical (six) Branch hours as needed (Pain). Take with food or milk. docusate 2020-03 Yes [id number] 240mg Take 1 Univers calcium 240 1-12 [id number] capsule by ity of mg capsule 00:00: mouth once [place] 00 daily as Medical needed for Branch Constipati on. ibuprofen 2020-03 Yes [id number] 600mg Take 1 Univers 600 mg 1-12 [id number] tablet by ity of tablet 00:00: mouth [place] 00 every 6 Medical (six) Branch hours as needed (Pain). Take with food or milk. 2020-03- No [id number] 1{tbl} Take 1 Univers vitamin 03-25 [id number] tablet by ity of w/FA tablet 00:00: 00:00 mouth [place] 00 :00 daily. Medical Branch 2020-03- No [id number] 1{tbl} Take 1 Univers vitamin -30 [id number] tablet by ity of w/FA tablet 00:00: 00:00 mouth [place] 00 :00 daily. Medical Branch phenazopyri 2020-03- No [id number] 100mg Take 1 Univers dine 03-25 [id number] tablet by ity of (PYRIDIUM) 00:00: 00:00 mouth 2 [place] 100 mg 00 :00 (two) Medical tablet times Branch daily. lactated 2020-03- No 1000mL at 999 Univ ers ringers IV 1-10 11-10 mL/hr, ity of infusion 23:15: 22:17 1,000 mL, [place] 1,000 mL 00 :00 IV Medical Infusion, Branch ONCE, 1 dose, On Tue01/21/21 at 1715, STAT ibuprofen 2020-03 Yes 800mg 800 mg, Univ ers (IBU) 1-10 Oral, Q8H, ity of tablet 800 23:00: First dose [place] mg 00 (after Medical last Branch modificati on) on Tue01/21/21 at 1700, Until Discontinu ed, Routine ibuprofen 2020-03 Yes 800mg 800 mg, Univ ers (IBU) 1-10 Oral, Q8H, ity of tablet 800 23:00: First dose [place] mg 00 (after Medical last Branch modificati on) on Tue01/21/21 at 1700, Until Discontinu ed, Routine rho(D) 2020-03 Yes 300ug 300 mcg, Univer s immune 1-10 Intramuscu ity of globulin 17:09: lar, ONCE, [place] (RHOGAM) 08 For 1 Medical syringe 300 dose, Branch mcg Conditiona l, Routine rho(D) 2020-03 Yes 300ug 300 mcg, Univer s immune 1-10 Intramuscu ity of globulin 17:09: lar, ONCE, [place] (RHOGAM) 08 For 1 Medical syringe 300 dose, Branch mcg Conditiona l, Routine HYDROcodone 2020-03 Yes 1{tbl} 1 tablet, Univers -acetaminop 1-10 Oral, ity of hen (NORCO 17:07: Q6HPRN, [place] 5) 5-325 mg 37 Starting Medi brittany tablet 1 on Tue Branch tablet 01/21/21 at 1107, Until Discontinu ed, Routine, Pain (scale 7-10) HYDROcodone 2020-03 Yes 1{tbl} 1 tablet, Univers -acetaminop 1-10 Oral, ity of hen (NORCO 17:07: Q6HPRN, [place] 5) 5-325 mg 37 Starting Medi brittany tablet 1 on Tue Branch tablet 01/21/21 at 1107, Until Discontinu ed, Routine, Pain (scale 7-10) acetaminoph 2020-03 Yes 650mg 650 mg, [place] en 1-10 Oral, ity of (TYLENOL) 17:07: Q6HPRN, [place] tablet 650 36 Starting Medic al mg on Wed Branch 01/21/21 at 1107, Until Discontinu ed, Routine, Pain (scale 1-3) diphenhydrA 2020-03 Yes 25mg 25 mg, Univ ers MINE 1-10 Oral, ity of (BENADRYL) 17:07: Q6HPRN, [place] tablet 25 36 Starting Medica l mg on Wed Branch 01/21/21 at 1107, Until Discontinu ed, Routine, Sleep, Itching ondansetron 2020-03 Yes 4mg 4 mg, Slow Univers (ZOFRAN 1-10 IV Push, ity of (PF)) 17:07: Q8HPRN, [place] injection 4 36 Starting Medi brittany mg on Wed Branch 01/21/21 at 1107, Until Discontinu ed, Routine, Nausea and Vomiting (N/V) magnesium 2020-03 Yes 30mL 30 mL, Univer s hydroxide 1-10 Oral, ity of (MILK OF 17:07: QDAILYPRN, [place] MAGNESIA) 36 Starting Medica l 400 mg/5 mL on Wed Branch suspension 01/21/21 30 mL at 1107, Until Discontinu ed, Routine, Constipati on benzocaine- 2020-03 Yes Topical, [place] menthol 1-10 PRN, ity of (DERMOPLAST 17:07: Starting [place] 20-0.5 % 36 on Wed Medical topical 01/21/21 Branch spray at 1107, Until Discontinu ed, Routine, Perineum discomfort acetaminoph 2020-03 Yes 650mg 650 mg, Un [place] en 1-10 Oral, ity of (TYLENOL) 17:07: Q6HPRN, [place] tablet 650 36 Starting Medic al mg on Wed Branch 01/21/21 at 1107, Until Discontinu ed, Routine, Pain (scale 1-3) diphenhydrA 2020-03 Yes 25mg 25 mg, Univ ers MINE 1-10 Oral, ity of (BENADRYL) 17:07: Q6HPRN, [place] tablet 25 36 Starting Medica l mg on Wed Branch 01/21/21 at 1107, Until Discontinu ed, Routine, Sleep, Itching ondansetron 2020-03 Yes 4mg 4 mg, Slow Univers (ZOFRAN 1-10 IV Push, ity of (PF)) 17:07: Q8HPRN, [place] injection 4 36 Starting Medi brittany mg on Tue Branch 01/21/21 at 1107, Until Discontinu ed, Routine, Nausea and Vomiting (N/V) magnesium 2020-03 Yes 30mL 30 mL, Univer s hydroxide 1-10 Oral, ity of (MILK OF 17:07: QDAILYPRN, [place] MAGNESIA) 36 Starting Medica l 400 mg/5 mL on Tue Branch suspension 01/21/21 30 mL at 1107, Until Discontinu ed, Routine, Constipati on benzocaine- 2020-03 Yes Topical, [place] menthol 1-10 PRN, ity of (DERMOPLAST 17:07: Starting [place] 20-0.5 % 36 on Tue Medical topical 01/21/21 Branch spray at 1107, Until Discontinu ed, Routine, Perineum discomfort ketorolac 2020-03- No Slow IV Univ ers (TORADOL) 03-23 11-10 Push, ONCE ity of injection 16:32: 16:50 INTRA [place] 00 :24 PROCEDURE, Medical Starting Branch on Tue01/21/21 at 1032, Until Tue01/21/21 at 1050, Routine, Intra-op ceFAZolin 2020-03- No IV Univers (ANCEF) 03-23 11-10 Piggyback, ity o f injection 15:57: 16:50 ONCE [place]TRA [place] 00 :24 PROCEDURE, Medical Starting Branch on Tue01/21/21 at 0957, Until Tue01/21/21 at 1050, MIKE, Intra-op midazolam 2020-03- No IV Push, Uni vers (VERSED) 03-23 11-10 ONCE INTRA ity of injection 15:38: 16:50 PROCEDURE, [place] 00 :24 Starting Medical on Tue Branch 01/21/21 at 0938, Until Tue01/21/21 at 1050, Routine, Intra-op PHENYLephri 2020-03- No Intravenou Univers ne 1000 1-10 11-10 s, ONCE ity of mcg/10 mL 15:12: 16:50 INTRA [place] in 0.9% 00 :24 PROCEDURE, Medica l NaCl Starting Branch syringe on Tue01/21/21 at 0912, Until Tue01/21/21 at 1050, Routine, Intra-op morpHINE PF 2020-03 No Epidural, Univers (DURAMORPH- 03-23 ONCE INTRA i ty of PF) 15:08: 16:50 PROCEDURE, [place] injection 00 :24 Starting Medica l on Tue Branch 01/21/21 at 0908, Until Tue01/21/21 at 1050, Routine, Intra-op bupivacaine 2020-03 No Intraspina Univers -dextrose-w 03-23-10 l, ONCE ity of ater-pf 15:08: 16:50 INTRA [place] (MARCAINE 00 :24 PROCEDURE, Medi brittany SPINAL Starting Branch (PF)) 0.75 on Tue % (7.5 01/21/21 mg/mL) at 0908, injection Until Tue01/21/21 at 1050, Routine, Intra-op lactated 2020-03- No IV [facility] IV 03-23 Infusion, ity of infusion 14:56: 16:50 CONTINUOUS [place] 00 :24 PRN, Medical Starting Branch on Tue01/21/21 at 0856, Until Tue01/21/21 at 1050, Routine, Intra-op misoprostol 2020-03- No 25ug 25 mcg, [facility] [place] (CYTOTEC) 03-22 Vaginal, ity o f quarter-tab 23:28: 17:09 Q4HPRN, 4 [place] let 25 mcg 24 :09 doses, Medical Starting Branch on Tue01/20/21 at 1728, Until Tue01/21/21 at 1109, Routine, Cevical rippening D5W-LR IV 2020-03- No 1000mL at 80 [facility] ers infusion 03-22 11- mL/hr, IV ity o f 1,000 mL 22:15: 17:09 Infusion, [place] 00 :09 CONTINUOUS Medical , Starting Branch on Tue01/20/21 at 1615, Until Tue01/21/21 at 1109, Routine terbutaline 2020-03- No .25mg 0.25 mg, [facility] (BRETHINE) 03-22 Subcutaneo it y of injection 22:00: 17:09 [place], Q15MIN [place] 0.25 mg 26 :09 PRN, 4 Medical doses, Branch Starting on Tue01/20/21 at 1600, Until Tue01/21/21 at 1109, Routine, NRFHT due to tachysysto le FENTanyl PF 2020-03- No 100ug 100 mcg, [facility] (SUBLIMAZE 03-22 Slow IV ity o f (PF)) 21:58: 17:09 Push, [place] injection 39 :09 Q1HPRN, Medical 100 mcg Starting Branch on Tue01/20/21 at 1558, Until Tue01/21/21 at 1109, Routine, Labor pains lactated 2020-03- No 500mL at 999 [facility] rs ringers IV 03-22 1110 mL/hr, 500 it y of infusion 21:56: 17:09 mL, IV [place] 500 mL 50 :09 Infusion, Medical PRN - SEE Branch INSTRUCTIO NS, Starting on Tue01/20/21 at 1556, Until Tue01/21/21 at 1109, Routine PNV 2020-03 Yes [id number] Take by [facility] no.95/melly 1-09 mouth. ity of us 15:43: [place] fum/folic 17 Medical Branch ( ORAL) 2020-03 Yes Take by [facility] 25/iron 1-09 mouth. ity of fum/folic/d 15:43: [place] [id number] Medical (-1 Branch ORAL) PNV 2020-03 Yes [id number] Take by Un[facility] no.95/melly 1-09 mouth. ity of us 15:43: [place] fum/folic 17 Medical ac Branch ( ORAL) 2020-03 Yes Take by [facility] 25/iron 1-09 mouth. ity of fum/folic/d 15:43: [place] [id number] Medical (-1 Branch ORAL) Yes Take by [facility] 25/iron -22 mouth. ity of fum/folic/d 14:33: [place] [id number] Medical (-1 Branch ORAL) Yes Take by [facility] 25/iron - mouth. ity of fum/folic/d 14:33: [place] [id number] Medical (-1 Branch ORAL) 0 Yes Take by [facility] 25/iron 9-22 mouth. ity of fum/folic/d 14:33: [place] [id number] Medical (-1 Branch ORAL) 0 Yes Take by [facility] 25/iron 9-22 mouth. ity of fum/folic/d 14:33: [place] [id number] Medical (-1 Branch ORAL) 0 Yes Take by [facility] 25/iron 9-22 mouth. ity of fum/folic/d 14:33: [place] [id number] Medical (-1 Branch ORAL) 0 Yes Take by [facility] 25/iron 9-22 mouth. ity of fum/folic/d 14:33: [place] [id number] Medical (-1 Branch ORAL) Yes Take by [facility] 25/iron 9-22 mouth. ity of fum/folic/d 14:33: [place] [id number] Medical (-1 Branch ORAL) Yes Take by [facility] 25/iron 9-22 mouth. ity of fum/folic/d 14:33: [place] [id number] Medical (-1 Branch ORAL) Yes Take by [facility] 25/iron 9-22 mouth. ity of fum/folic/d 14:33: [place] [id number] Medical (-1 Branch ORAL) Yes Take by [facility] 25/iron 9-22 mouth. ity of fum/folic/d 14:33: [place] [id number] Medical (-1 Branch ORAL) Yes Take by [facility] 25/iron 9-22 mouth. ity of fum/folic/d 14:33: [place] [id number] Medical (-1 Branch ORAL) 0 Yes Take by [facility] 25/iron 9-22 mouth. ity of fum/folic/d 14:33: [place] [id number] Medical (-1 Branch ORAL) Blood-Gluco Yes Use as Univ ers se Meter 12-03 directed ity of (BLOOD 00:00: [place] GLUCOSE 00 Medical MONITORING) Branch Kit blood sugar Yes Check Un[facility] rs diagnostic 12-03 blood ity of strip 00:00: sugar 4 [place] 00 times Medical daily. Branch Lancets Yes Check [facility] Misc 9-22 blood ity of 00:00: sugar 4 [place] 00 times Medical daily. Branch Alcohol 0 Yes Apply to [facility] Swabs 9-22 area(s) 4 ity of (ALCOHOL 00:00: (four) [place] PADS) PadM 00 times Medical daily. Branch Blood-Gluco Yes Use as [facility] ers se Meter 9-22 directed ity of (BLOOD 00:00: [place] GLUCOSE 00 Medical MONITORING) Branch Kit blood sugar Yes Check Un[facility] rs diagnostic 9-22 blood ity of strip 00:00: sugar 4 [place] 00 times Medical daily. Branch Lancets 0 Yes Check [facility] Misc 9-22 blood ity of 00:00: sugar 4 [place] 00 times Medical daily. Branch Alcohol 0 Yes Apply to Un[facility] Swabs 9-22 area(s) 4 ity of (ALCOHOL 00:00: (four) [place] PADS) PadM 00 times Medical daily. Branch Blood-Gluco Yes Use as Univ ers se Meter 9-22 directed ity of (BLOOD 00:00: [place] GLUCOSE 00 Medical MONITORING) Branch Kit blood sugar Yes Check Un[facility] rs diagnostic 9-22 blood ity of strip 00:00: sugar 4 [place] 00 times Medical daily. Branch Lancets 0 Yes Check [facility] Misc 9-22 blood ity of 00:00: sugar 4 [place] 00 times Medical daily. Branch Alcohol 0 Yes Apply to Univer [facility] Swabs 9-22 area(s) 4 ity of (ALCOHOL 00:00: (four) [place] PADS) PadM 00 times Medical daily. Branch Blood-Gluco Yes Use as [facility] ers se Meter 9-22 directed ity of (BLOOD 00:00: [place] GLUCOSE 00 Medical MONITORING) Branch Kit blood sugar 0 Yes Check Un[facility] rs diagnostic 9-22 blood ity of strip 00:00: sugar 4 [place] 00 times Medical daily. Branch Lancets 2020-0 Yes Check [facility] Misc 9-22 blood ity of 00:00: sugar 4 [place] 00 times Medical daily. Branch Alcohol 2020-0 Yes Apply to Un[facility] Swabs 9-22 area(s) 4 ity of (ALCOHOL 00:00: (four) [place] PADS) PadM 00 times Medical daily. Branch Blood-Gluco Yes Use as [facility] ers se Meter 9-22 directed ity of (BLOOD 00:00: [place] GLUCOSE 00 Medical MONITORING) Branch Kit blood sugar 0 Yes Check Unive rs diagnostic 9-22 blood ity of strip 00:00: sugar 4 [place] 00 times Medical daily. Branch Lancets 0 Yes Check [facility] Misc 9-22 blood ity of 00:00: sugar 4 [place] 00 times Medical daily. Branch Alcohol 0 Yes Apply to [facility] Swabs 9-22 area(s) 4 ity of (ALCOHOL 00:00: (four) [place] PADS) PadM 00 times Medical daily. Branch Blood-Gluco Yes Use as [facility] ers se Meter 9-22 directed ity of (BLOOD 00:00: [place] GLUCOSE 00 Medical MONITORING) Branch Kit blood sugar 0 Yes Check Unive rs diagnostic 9-22 blood ity of strip 00:00: sugar 4 [place] 00 times Medical daily. Branch Lancets 0 Yes Check [facility] Misc 9-22 blood ity of 00:00: sugar 4 [place] 00 times Medical daily. Branch Alcohol 0 Yes Apply to Un[facility] Swabs 9-22 area(s) 4 ity of (ALCOHOL 00:00: (four) [place] PADS) PadM 00 times Medical daily. Branch Blood-Gluco Yes Use as Univ ers se Meter 9-22 directed ity of (BLOOD 00:00: [place] GLUCOSE 00 Medical MONITORING) Branch Kit blood sugar Yes Check Un[facility] rs diagnostic 9-22 blood ity of strip 00:00: sugar 4 [place] 00 times Medical daily. Branch Lancets 0 Yes Check [facility] Misc 9-22 blood ity of 00:00: sugar 4 [place] 00 times Medical daily. Branch Alcohol 2020-0 Yes Apply to Un[facility] Swabs 9-22 area(s) 4 ity of (ALCOHOL 00:00: (four) [place] PADS) PadM 00 times Medical daily. Branch Blood-Gluco 2020-0 Yes Use as Univ ers se Meter 9-22 directed ity of (BLOOD 00:00: [place] GLUCOSE 00 Medical MONITORING) Branch Kit blood sugar 0 Yes Check Un[facility] diagnostic 9-22 blood ity of strip 00:00: sugar 4 [place] 00 times Medical daily. Branch Lancets 2021-0 Yes Check [facility] Misc 9-22 blood ity of 00:00: sugar 4 [place] 00 times Medical daily. Branch Alcohol 0 Yes Apply to Un[facility] Swabs 9-22 area(s) 4 ity of (ALCOHOL 00:00: (four) [place] PADS) PadM 00 times Medical daily. Branch Blood-Gluco Yes Use as Univ ers se Meter 9-22 directed ity of (BLOOD 00:00: [place] GLUCOSE 00 Medical MONITORING) Branch Kit blood sugar Yes Check [facility] diagnostic 9-22 blood ity of strip 00:00: sugar 4 [place] 00 times Medical daily. Branch Lancets 0 Yes Check [facility] Misc 9-22 blood ity of 00:00: sugar 4 [place] 00 times Medical daily. Branch Alcohol 0 Yes Apply to Un[facility] Swabs 9-22 area(s) 4 ity of (ALCOHOL 00:00: (four) [place] PADS) PadM 00 times Medical daily. Branch Blood-Gluco Yes Use as [facility] ers se Meter 9-22 directed ity of (BLOOD 00:00: [place] GLUCOSE 00 Medical MONITORING) Branch Kit blood sugar 0 Yes Check [facility] diagnostic 9-22 blood ity of strip 00:00: sugar 4 [place] 00 times Medical daily. Branch Lancets 0 Yes Check [facility] Misc 9-22 blood ity of 00:00: sugar 4 [place] 00 times Medical daily. Branch Alcohol 0 Yes Apply to Un[facility] Swabs 9-22 area(s) 4 ity of (ALCOHOL 00:00: (four) [place] PADS) PadM 00 times Medical daily. Branch Blood-Gluco Yes Use as [facility] ers se Meter 9-22 directed ity of (BLOOD 00:00: [place] GLUCOSE 00 Medical MONITORING) Branch Kit blood sugar 0 Yes Check [facility] diagnostic 9-22 blood ity of strip 00:00: sugar 4 [place] 00 times Medical daily. Branch Lancets 2020-0 Yes Check [facility] Misc 9-22 blood ity of 00:00: sugar 4 [place] 00 times Medical daily. Branch Alcohol 2020-0 Yes Apply to Un[facility] Swabs 9-22 area(s) 4 ity of (ALCOHOL 00:00: (four) [place] PADS) PadM 00 times Medical daily. Branch Blood-Gluco Yes Use as [facility] ers se Meter 12-03 directed ity of (BLOOD 00:00: [place] GLUCOSE 00 Medical MONITORING) Branch Kit blood sugar Yes Check [facility] diagnostic 12-03 blood ity of strip 00:00: sugar 4 [place] 00 times Medical daily. Branch Lancets Yes Check [facility] Misc 12-03 blood ity of 00:00: sugar 4 [place] 00 times Medical daily. Branch Alcohol Yes Apply to Un[facility] Swabs 12-03 area(s) 4 ity of (ALCOHOL 00:00: (four) [place] PADS) PadM 00 times Medical daily. Branch Blood-Gluco 2020- No Use as Uni vers se Meter 12-0312 directed ity of (BLOOD 00:00: 00:00 [place] GLUCOSE 00 :00 Medical MONITORING) Branch Kit blood sugar 2020- No Check [facility] ers diagnostic 12-03 11-12 blood ity of strip 00:00: 00:00 sugar 4 [place] 00 :00 times Medical daily. Branch Lancets 2020- No Check [facility] Misc 12-03 11-12 blood ity of 00:00: 00:00 sugar 4 [place] 00 :00 times Medical daily. Branch Alcohol 2020- No Apply to Unive rs Swabs 12-03 11-12 area(s) 4 ity of (ALCOHOL 00:00: 00:00 (four) [place] PADS) PadM 00 :00 times Medical daily. Branch Blood-Gluco 2020- No Use as Uni vers se Meter 12-0312 directed ity of (BLOOD 00:00: 00:00 [place] GLUCOSE 00 :00 Medical MONITORING) Branch Kit blood sugar 2020- No Check Univ ers diagnostic 12-03 11-12 blood ity of strip 00:00: 00:00 sugar 4 [place] 00 :00 times Medical daily. Branch Lancets 2020- No Check [facility] Misc 12-03 11-12 blood ity of 00:00: 00:00 sugar 4 [place] 00 :00 times Medical daily. Branch Alcohol 2020- No Apply to Un[facility] rs Swabs 12-03 11-12 area(s) 4 ity of (ALCOHOL 00:00: 00:00 (four) [place] PADS) PadM 00 :00 times Medical daily. Branch ferrous 2020-0 202- No 325mg Take 1 Un[facility] sulfate 7-04 22- tablet by ity of (FERROUSUL) 00:00: 04:59 mouth 2 [place] 325 mg (65 00 :00 (two) Medical mg iron) times Branch tablet daily for 60 days. ferrous 2020-0 202- No 325mg Take 1 [facility] sulfate -04 22- tablet by ity of (FERROUSUL) 00:00: 04:59 mouth 2 [place] 325 mg (65 00 :00 (two) Medical mg iron) times Branch tablet daily for 60 days. ferrous 2020-0 202- No 325mg Take 1 [facility] sulfate 7-04 22- tablet by ity of (FERROUSUL) 00:00: 04:59 mouth 2 [place] 325 mg (65 00 :00 (two) Medical mg iron) times Branch tablet daily for 60 days. ferrous 2020-0 202- No 325mg Take 1 [facility] sulfate 09-12- tablet by ity of (FERROUSUL) 00:00: 04:59 mouth 2 [place] 325 mg (65 00 :00 (two) Medical mg iron) times Branch tablet daily for 60 days. ferrous 2020-0 202- No 325mg Take 1 [facility] sulfate 09-12- tablet by ity of (FERROUSUL) 00:00: 04:59 mouth 2 [place] 325 mg (65 00 :00 (two) Medical mg iron) times Branch tablet daily for 60 days. ferrous 2020-0 2021- No 325mg Take 1 [facility] sulfate 09-12- tablet by ity of (FERROUSUL) 00:00: 04:59 mouth 2 [place] 325 mg (65 00 :00 (two) Medical mg iron) times Branch tablet daily for 60 days. ferrous 2020-0 2021- No 325mg Take 1 [facility] sulfate -04 22- tablet by ity of (FERROUSUL) 00:00: 04:59 mouth 2 [place] 325 mg (65 00 :00 (two) Medical mg iron) times Branch tablet daily for 60 days. ferrous 2020-0 2021- No 325mg Take 1 [facility] sulfate 09-12 tablet by ity of (FERROUSUL) 00:00: 04:59 mouth 2 [place] 325 mg (65 00 :00 (two) Medical mg iron) times Branch tablet daily for 60 days. ferrous 2020- No 325mg Take 1 [facility] sulfate 09-12 tablet by ity of (FERROUSUL) 00:00: 04:59 mouth 2 [place] 325 mg (65 00 :00 (two) Medical mg iron) times Branch tablet daily for 60 days. ferrous 2020- No 325mg Take 1 [facility] sulfate 09-12 tablet by ity of (FERROUSUL) 00:00: 04:59 mouth 2 [place] 325 mg (65 00 :00 (two) Medical mg iron) times Branch tablet daily for 60 days. ferrous 2020- No 325mg Take 1 [facility] sulfate 09-12 tablet by ity of (FERROUSUL) 00:00: 04:59 mouth 2 [place] 325 mg (65 00 :00 (two) Medical mg iron) times Branch tablet daily for 60 days. PNV 0 Yes [id number] Take by Univer s no.95/melly 3-16 mouth. ity of us 13:52: [place] fum/folic 09 Medical ac Branch ( ORAL) PNV 2020-0 Yes [id number] Take by Univer s no.95/melly 3-16 mouth. ity of us 13:52: [place] fum/folic 09 Medical ac Branch ( ORAL) PNV 2020-0 Yes [id number] Take by [facility] no.95/melly 3-16 mouth. ity of us 13:52: [place] fum/folic 09 Medical ac Branch ( ORAL) PNV 2020-0 Yes [id number] Take by Univer s no.95/melly 3-16 mouth. ity of us 13:52: [place] fum/folic 09 Medical ac Branch ( ORAL) PNV 0 Yes [id number] Take by Univer s no.95/melly 3-16 mouth. ity of us 13:52: [place] fum/folic 09 Medical ac Branch ( ORAL) PNV 2020-0 Yes [id number] Take by Univer s no.95/melly 3-16 mouth. ity of us 13:52: [place] fum/folic 09 Medical ac Branch ( ORAL) PNV 202-0 Yes [id number] Take by Univer s no.95/melly 3-16 mouth. ity of us 13:52: [place] fum/folic 09 Medical ac Branch ( ORAL) PNV 2020-0 Yes [id number] Take by [facility]iver s no.95/melly 3-16 mouth. ity of us 13:52: [place] fum/folic 09 Medical ac Branch ( ORAL) PNV 2020-0 Yes [id number] Take by Univer s no.95/melly 3-16 mouth. ity of us 13:52: [place] fum/folic 09 Medical ac Branch ( ORAL) PNV 2020-0 Yes [id number] Take by Univer s no.95/melly 3-16 mouth. ity of us 13:52: [place] fum/folic 09 Medical ac Branch ( ORAL) PNV 2020-0 Yes [id number] Take by Univer s no.95/melly 3-16 mouth. ity of us 13:52: [place] fum/folic 09 Medical ac Branch ( ORAL) PNV 202-0 Yes [id number] Take by Univer s no.95/melly 3-16 mouth. ity of us 13:52: [place] fum/folic 09 Medical ac Branch ( ORAL) PNV 2020-0 Yes [id number] Take by Univer s no.95/melly 3-16 mouth. ity of us 13:52: [place] fum/folic 09 Medical ac Branch ( ORAL) PNV 2020-0 Yes [id number] Take by Univer s no.95/melly 3-16 mouth. ity of us 13:52: [place] fum/folic 09 Medical ac Branch ( ORAL) PNV 202-0 Yes [id number] Take by Univer s no.95/melly 3-16 mouth. ity of us 13:52: [place] fum/folic 09 Medical ac Branch ( ORAL) PNV 2020-0 Yes [id number] Take by Univer s no.95/melly 3-16 mouth. ity of us 13:52: [place] fum/folic 09 Medical ac Branch ( ORAL) PNV 202-0 Yes [id number] Take by Univer s no.95/melly 3-16 mouth. ity of us 13:52: [place] fum/folic 09 Medical ac Branch ( ORAL) PNV 202-0 Yes [id number] Take by Univer s no.95/melly 3-16 mouth. ity of us 13:52: [place] fum/folic 09 Medical ac Branch ( ORAL) PNV 202-0 Yes [id number] Take by Univer s no.95/melly 3-16 mouth. ity of us 13:52: [place] fum/folic 09 Medical ac Branch ( ORAL) PNV 2020-0 Yes [id number] Take by Univer s no.95/melly 3-16 mouth. ity of us 13:52: [place] fum/folic 09 Medical ac Branch ( ORAL) PNV 2020-0 Yes [id number] Take by Univer s no.95/melly 3-16 mouth. ity of us 13:52: [place] fum/folic 09 Medical ac Branch ( ORAL) PNV 2020-0 Yes [id number] Take by Univer s no.95/melly 3-16 mouth. ity of us 13:52: [place] fum/folic 09 Medical ac Branch ( ORAL) PNV 2020-0 Yes [id number] Take by [facility]iver s no.95/melly 3-16 mouth. ity of us 13:52: [place] fum/folic 09 Medical ac Branch ( ORAL) PNV 2020-0 Yes [id number] Take by Univer s no.95/melly 3-16 mouth. ity of us 13:52: [place] fum/folic 09 Medical ac Branch ( ORAL) PNV 2020-0 Yes [id number] Take by Univer s no.95/melly 3-16 mouth. ity of us 13:52: [place] fum/folic 09 Medical ac Branch ( ORAL) PNV 202-0 Yes [id number] Take by Univer s no.95/melly 3-16 mouth. ity of us 13:52: [place] fum/folic 09 Medical ac Branch ( ORAL) PNV 2020-0 Yes [id number] Take by Univer s no.95/melly 3-16 mouth. ity of us 13:52: [place] fum/folic 09 Medical ac Branch ( ORAL) PNV 2020-0 Yes [id number] Take by Univer s no.95/melly 3-16 mouth. ity of us 13:52: [place] fum/folic 09 Medical ac Branch ( ORAL) PNV 202-0 Yes [id number] Take by Univer s no.95/melly 3-16 mouth. ity of us 13:52: [place] fum/folic 09 Medical ac Branch ( ORAL) PNV 202-0 Yes [id number] Take by Univer s no.95/melly 3-16 mouth. ity of us 13:52: [place] fum/folic 09 Medical ac Branch ( ORAL) PNV 202-0 Yes [id number] Take by Univer s no.95/melly 3-16 mouth. ity of us 13:52: [place] fum/folic 09 Medical ac Branch ( ORAL) PNV 202-0 Yes [id number] Take by Univer s no.95/melly 3-16 mouth. ity of us 13:52: [place] fum/folic 09 Medical ac Branch ( ORAL) PNV 202-0 Yes [id number] Take by Univer s no.95/melly 3-16 mouth. ity of us 13:52: [place] fum/folic 09 Medical ac Branch ( ORAL) PNV 202-0 Yes [id number] Take by Univer s no.95/melly 3-16 mouth. ity of us 13:52: [place] fum/folic 09 Medical ac Branch ( ORAL) PNV 202-0 Yes [id number] Take by Univer s no.95/melly 3-16 mouth. ity of us 13:52: [place] fum/folic 09 Medical ac Branch ( ORAL) PNV 202-0 Yes [id number] Take by Univer s no.95/melly 3-16 mouth. ity of us 13:52: [place] fum/folic 09 Medical ac Branch ( ORAL) PNV 202-0 Yes [id number] Take by Univer s no.95/melly 3-16 mouth. ity of us 13:52: [place] fum/folic 09 Medical ac Branch ( ORAL) PNV 202-0 Yes [id number] Take by Univer s no.95/melly 3-16 mouth. ity of us 13:52: [place] fum/folic 09 Medical ac Branch ( ORAL) PNV 202-0 Yes [id number] Take by Univer s no.95/melly 3-16 mouth. ity of us 13:52: [place] fum/folic 09 Medical ac Branch ( ORAL) PNV 202-0 Yes [id number] Take by Univer s no.95/melly 3-16 mouth. ity of us 13:52: [place] fum/folic 09 Medical ac Branch ( ORAL) PNV 202-0 Yes [id number] Take by Univer s no.95/melly 3-16 mouth. ity of us 13:52: [place] fum/folic 09 Medical ac Branch ( ORAL) PNV 202-0 Yes [id number] Take by Univer s no.95/melly 3-16 mouth. ity of us 13:52: [place] fum/folic 09 Medical ac Branch ( ORAL) PNV 2020-0 Yes [id number] Take by Univer s no.95/melly 3-16 mouth. ity of us 13:52: [place] fum/folic 09 Medical ac Branch ( ORAL) PNV 2020-0 Yes [id number] Take by Univer s no.95/melly 3-16 mouth. ity of us 08:52: [place] fum/folic 09 Medical ac Branch ( ORAL) PNV 202-0 Yes [id number] Take by Univer s no.95/melly 3-16 mouth. ity of us 08:52: [place] fum/folic 09 Medical ac Branch ( ORAL) PNV 202-0 Yes [id number] Take by Univer s no.95/melly 3-16 mouth. ity of us 08:52: [place] fum/folic 09 Medical ac Branch ( ORAL) PNV 202-0 Yes [id number] Take by Univer s no.95/melly 3-16 mouth. ity of us 08:52: [place] fum/folic 09 Medical ac Branch ( ORAL) PNV 202-0 Yes [id number] Take by Univer s no.95/melly 3-16 mouth. ity of us 08:52: [place] fum/folic 09 Medical ac Branch ( ORAL) PNV 202-0 Yes [id number] Take by Univer s no.95/melly 3-16 mouth. ity of us 08:52: [place] fum/folic 09 Medical ac Branch ( ORAL) PNV 202-0 Yes [id number] Take by Univer s no.95/melly 3-16 mouth. ity of us 08:52: [place] fum/folic 09 Medical ac Branch ( ORAL) PNV 2020-0 Yes [id number] Take by Univer s no.95/melly 3-16 mouth. ity of 08:52: [place] fum/folic 09 Medical ac Branch ( ORAL) PNV 2020-0 Yes [id number] Take by Univer s no.95/melly 3-16 mouth. ity of us 08:52: [place] fum/folic 09 Medical ac Branch ( ORAL) PNV 2020-0 Yes [id number] Take by Univer s no.95/melly 3-16 mouth. ity of us 08:52: [place] fum/folic 09 Medical ac Branch ( ORAL) PNV 2020-0 Yes [id number] Take by Univer s no.95/melly 3-16 mouth. ity of 08:52: [place] fum/folic 09 Medical ac Branch ( ORAL) PNV 2020-0 Yes [id number] Take by Univer s no.95/melly 3-16 mouth. ity of 08:52: [place] fum/folic 09 Medical ac Branch ( ORAL) neomycin-po 0 Yes INSTILL 1 U nivers lymyxin-dex 2-26 DROP INTO ity of amethasone 00:00: RIGHT E[place] 3.5mg/mL-10 00 4 TIMES A Med ical ,000 DAY Branch unit/mL-0.1 % ophthalmic suspension drops neomycin-po 0 Yes INSTILL 1 U nivers lymyxin-dex 2-26 DROP INTO ity of amethasone 00:00: RIGHT E[place] 3.5mg/mL-10 00 4 TIMES A Med ical ,000 DAY Branch unit/mL-0.1 % ophthalmic suspension drops neomycin-po 0 Yes INSTILL 1 U nivers lymyxin-dex 2-26 DROP INTO ity of amethasone 00:00: RIGHT EYE [place] 3.5mg/mL-10 00 4 TIMES A Med ical ,000 DAY Branch unit/mL-0.1 % ophthalmic suspension drops neomycin-po 0 Yes INSTILL 1 U nivers lymyxin-dex 2-26 DROP INTO ity of amethasone 00:00: RIGHT EYE [place] 3.5mg/mL-10 00 4 TIMES A Med ical ,000 DAY Branch unit/mL-0.1 % ophthalmic suspension drops neomycin-po 2020-0 Yes INSTILL 1 U nivers lymyxin-dex 2-26 DROP INTO ity of amethasone 00:00: RIGHT E[place] 3.5mg/mL-10 00 4 TIMES A Med ical ,000 DAY Branch unit/mL-0.1 % ophthalmic suspension drops neomycin-po 2020-0 202- No INSTILL 1 [facility] lymyxin-dex 2-26 05-11 DROP INTO it y of amethasone 00:00: 00:00 RIGHT [place] 3.5mg/mL-10 00 :00 4 TIMES A Med ical ,000 DAY Branch unit/mL-0.1 % ophthalmic suspension drops neomycin-po 2020-0 2020- No INSTILL 1 [facility] lymyxin-dex 2-26 05-11 DROP INTO it y of amethasone 00:00: 00:00 RIGHT E[place] 3.5mg/mL-10 00 :00 4 TIMES A Med ical ,000 DAY Branch unit/mL-0.1 % ophthalmic suspension drops LOESTRIN FE 2020-0 Yes [id number] 1{tbl} Take 1 [facility] (LOESTRIN 8-19 tablet by itKitLocate o f FE 04/02) 1 00:00: mouth [place] mg-20 mcg 00 daily. Medical (21)/75 mg Branch (7) tablet LOESTRIN FE 2020-0 Yes [id number] 1{tbl} Take 1 [facility] (LOESTRIN 8-19 tablet by [facility] o f FE 04/02) 1 00:00: mouth [place] mg-20 mcg 00 daily. Medical (21)/75 mg Branch (7) tablet LOESTRIN FE 2020-0 Yes [id number] 1{tbl} Take 1 [facility] (LOESTRIN 8-19 tablet by ity o f FE 04/02) 1 00:00: mouth [place] mg-20 mcg 00 daily. Medical (21)/75 mg Branch (7) tablet LOESTRIN FE 2020-0 202- No [id number] 1{tbl} Take 1 [facility] (LOESTRIN 8-19 03-16 tablet by ity of FE 04/02) 1 00:00: 00:00 mouth [place] mg-20 mcg 00 :00 daily. Medical (21)/75 mg Branch (7) tablet LOESTRIN Yes [id number] 1{tbl} Take 1 [facility] 00:00: mouth [place] mg-20 mcg 00 daily. Medical (21)/75 mg Branch (7) tablet LOESTRIN Yes [id number] 1{tbl} Take 1 [facility] (LO[facility]STRIN 4-08 [facility] 1 00:00: mouth [place] mg-20 mcg 00 daily. Medical (21)/75 mg Branch (7) tablet LOESTRIN 2020- No [id number] 1{tbl} Take 1 [facility]: 00:00 mouth [place] mg-20 mcg 00 :00 daily. Medical (21)/75 mg Branch (7) tablet LOESTRIN 2020- No [id number] 1{tbl} Take 1 Univers (LOESTRIN 4-08 -19 tablet by [facility] 04/02) 1 00:00: 00:00 mouth [place] mg-20 mcg 00 :00 daily. Medical (21)/75 mg Branch (7) tablet Immunizations Ordered Filled Date Status Comments Source Immunization Name Immunization Name TD 2020-11-07 Completed [facility] 00:00: [facility] TDAP 2020-11-07 Completed [facility] 00:00: [facility] TDAP 2020-11-07 Completed [facility] of 00:00: [facility] TDAP 2020-11-07 Completed University of 00[facility]00: [facility] TDAP 2020-11-07 Completed University of 00:00: [facility] TDAP 2020-11-07 Completed University of 00:00: [facility] TDAP 2020-11-07 Completed University of 00:00: [facility] TDAP 2020-11-07 Completed University of 00:00: [facility] TDAP 2020-11-07 Completed University of 00:00: [facility] TDAP 2020-11-07 Completed University of 00:00:00 [facility] TDAP 2020-11-07 Completed University of 00:00:00 [facility] TDAP 2020-11-07 Completed University of 00:00:00 [facility] TDAP 2020-11-07 Completed [facility] of 00:00:00 [place] [facility] TDAP 2020-11-07 Completed University of 00:00:00 [facility] TDAP 2020-11-07 Completed University of 00:00:00 [facility] TDAP 2020-11-07 Completed University of 00:00:00 [place] [facility] TDAP 2020-11-07 Completed University of 00:00:00 [facility] TDAP 2020-11-07 Completed University of 00:00:00 [facility] TDAP 2020-11-07 Completed University of 00:00:00 [facility] TDAP 2020-11-07 Completed University of 00:00:00 [facility] TDAP 2020-11-07 Completed [facility] 00:00:00 [facility] TDAP 2020-11-07 Completed [facility] 00:00:00 [facility] TDAP 2020-11-07 Completed [facility] 00:00:00 [facility] TDAP 2020-11-07 Completed [facility] 00:00:00 [facility] TDAP 2020-11-07 Completed [facility] 00:00:00 [facility] TDAP 2020-11-07 Completed [facility] 00:00:00 [facility] TDAP 2020-11-07 Completed [facility] 00:00:00 [facility] TDAP 2020-11-07 Completed [facility] 00:00:00 [facility] TDAP 2020-11-07 Completed [facility] 00:00:00 [facility] TDAP 2020-11-07 Completed [facility] 00:00:00 [facility] TDAP 2020-11-07 Completed [facility] 00:00:00 [facility] TDAP 2020-11-07 Completed [facility] 00:00:00 [facility] TDAP 2020-11-07 Completed [facility] 00:00:00 [facility] TDAP 2020-11-07 Completed [facility] 00:00:00 [facility] TDAP 2020-11-07 Completed [facility] 00:00:00 [facility] TDAP 2020-11-07 Completed [facility] 00:00:00 [facility] TDAP 2020-11-07 Completed [facility] 00:00:00 [facility] TDAP 2020-11-07 Completed [facility] 00:00:00 [facility] TDAP 2020-11-07 Completed [facility] 00:00:00 [facility] TDAP 2020-11-07 Completed [facility] 00[facility]00:00 [facility] TDAP 2018-12-04 Completed [facility] 00:00:00 [facility] TDAP 2018-12-04 Completed [facility] 00:00:00 [facility] TDAP 2018-12-04 Completed [facility] 00:00:00 [facility] TDAP 2018-12-04 Completed [facility] 00:00:00 [facility] TDAP 2018-12-04 Completed [facility] 00:00:00 [facility] TDAP 2018-12-04 Completed [facility] 00:00:00 [facility] TDAP 2018-12-04 Completed [facility] 00:00:00 [facility] TDAP 2018-12-04 Completed [facility] 00:00:00 [facility] TDAP 2018-12-04 Completed [facility] 00:00:00 [facility] TDAP 2018-12-04 Completed [facility] 00:00:00 [facility] TDAP 2018-12-04 Completed [facility] 00:00:00 [facility] TDAP 2018-12-04 Completed [facility] 00:00:00 [facility] TDAP 2018-12-04 Completed [facility] 00:00:00 [facility] TDAP 2018-12-04 Completed [facility] 00:00:00 [facility] TDAP 2018-12-04 Completed [facility] 00:00:00 [facility] TDAP 2018-12-04 Completed [facility] 00:00:00 [facility] TDAP 2018-12-04 Completed [facility] 00:00:00 [facility] Td 2007-10-01 Completed [facility] 00:00:00 [facility] Td 2007-10-01 Completed [facility] 00:00:00 [facility] Td 2007-10-01 Completed [facility] 00:00:00 [facility] Td 2007-10-01 Completed [facility] 00:00:00 [facility] Td 2007-10-01 Completed [facility] 00:00:00 [facility] Td 2007-10-01 Completed [facility] 00:00:00 [facility] Td 2007-10-01 Completed [facility] 00:00:00 [facility] Td 2007-10-01 Completed [facility] 00:00:00 [facility] Td 2007-10-01 Completed [facility] 00[facility]00:00 [facility] Td 2007-10-01 Completed [facility] 00:00:00 [facility] Td 2007-10-01 Completed [facility] 00:00:00 [facility] Td 2007-10-01 Completed [facility] 00:00:00 [facility] Td 2007-10-01 Completed [facility] 00:00:00 [facility] Td 2007-10-01 Completed [facility] 00:00:00 [facility] TD, NOS 2007-10-01 Completed [facility] 00:00:00 [facility] TD, NOS 2007-10-01 Completed [facility] 00:00:00 [facility] TD, NOS 2007-10-01 Completed [facility] 00:00:00 [facility] Td 2007-10-01 Completed [facility] 00:00:00 [facility] Td 2007-10-01 Completed [facility] 00:00:00 [facility] Td 2007-10-01 Completed [facility] 00:00:00 [facility] Td 2007-10-01 Completed [facility] 00:00:00 [facility] Td 2007-10-01 Completed [facility] 00[facility]00:00 [facility] Td 2007-10-01 Completed [facility] 00:00:00 [facility] Td 2007-10-01 Completed [facility] 00:00:00 [facility] Td 2007-10-01 Completed [facility] 00:00:00 [facility] Td 2007-10-01 Completed [facility] 00:00:00 [facility] Td 2007-10-01 Completed [facility] 00:00:00 [facility] Td 2007-10-01 Completed [facility] 00:00:00 [facility] Td 2007-10-01 Completed [facility] 00:00:00 [facility] Td 2007-10-01 Completed [facility] 00:00:00 [facility] Td 2007-10-01 Completed [facility] 00:00:00 [facility] Td 2007-10-01 Completed [facility] 00:00:00 [facility] Td 2007-10-01 Completed [facility] 00:00:00 [facility] Td 2007-10-01 Completed [facility] 00:00:00 [facility] Td 2007-10-01 Completed [facility] 00:00:00 [facility] Td 2007-10-01 Completed [facility] 00:00:00 [facility] Td 2007-10-01 Completed [facility] 00:00:00 [facility] Td 2007-10-01 Completed [facility] 00:00:00 [facility] Td 2007-10-01 Completed [facility] 00:00:00 [facility] Td 2007-10-01 Completed [facility] 00:00:00 [facility] Td 2007-10-01 Completed [facility] 00:00:00 [facility] Td 2007-10-01 Completed [facility] 00:00:00 [facility] Td 2007-10-01 Completed [facility] 00[facility]00:00 [facility] Td 2007-10-01 Completed [facility] 00:00:00 [facility] Td 2007-10-01 Completed [facility] 00:00:00 [facility] Td 2007-10-01 Completed [facility] 00:00:00 [facility] Td 2007-10-01 Completed [facility] 00:00:00 [facility] Td 2007-10-01 Completed [facility] 00:00:00 [facility] Td 2007-10-01 Completed [facility] 00:00:00 [facility] Td 2007-10-01 Completed [facility] 00:00:00 [facility] Td 2007-10-01 Completed [facility] 00:00:00 [facility] Td 2007-10-01 Completed [facility] 00:00:00 [facility] Td 2007-10-01 Completed [facility] 00:00:00 [facility] Td 2007-10-01 Completed [facility] 00:00:00 [facility] Td 2007-10-01 Completed [facility] 00:00:00 [facility] Td 2007-10-01 Completed [facility] 00:00:00 [facility] Td 2007-10-01 Completed [facility] 00:00:00 [facility] Td 2007-10-01 Completed [facility] 00:00:00 [facility] Td 2007-10-01 Completed [facility] 00:00:00 [facility] Td 2007-10-01 Completed [facility] 00:00:00 [facility] Td 2007-10-01 Completed [facility] 00:00:00 [facility] Td 2007-10-01 Completed [facility] 00:00:00 [facility] Td 2007-10-01 Completed [facility] 00:00:00 [facility] Td 2007-10-01 Completed [facility] 00:00:00 [facility] Td 2007-10-01 Completed [facility] 00:00:00 [facility] Td 2007-10-01 Completed [facility] 00:00:00 [facility] Td 2007-10-01 Completed [facility] 00:00:00 [facility] Td 2007-10-01 Completed [facility] 00:00:00 [facility] Td 2007-10-01 Completed [facility] 00:00:00 [facility] Td 2007-10-01 Completed [facility] 00:00:00 [facility] Td 2007-10-01 Completed [facility] 00:00:00 [facility] Td 2007-10-01 Completed [facility] 00:00:00 [facility] Td 2007-10-01 Completed [facility] 00:00:00 [facility] Td 2007-10-01 Completed [facility] 00:00:00 [facility] Td 2007-10-01 Completed [facility] 00:00:00 [facility] Td 2007-10-01 Completed [facility] 00:00:00 [facility] Td 2007-10-01 Completed [facility] 00:00:00 [facility] TD, NOS Unknown Completed [facility] TDAP Unknown Completed [facility] TDAP Unknown Completed [facility] TD, NOS Unknown Completed [facility] TDAP Unknown Completed [facility] TDAP Unknown Completed [facility] TD, NOS Unknown Completed [facility] TDAP Unknown Completed [facility] Vital Signs Vital Name Observation Time Observation Value Comments Source Systolic blood 2022-03-12 16:22:00 132 mm[Hg] Univer sity of pressure [facility] Diastolic blood 2022-03-12 16:22:00 81 mm[Hg] Unive rsity of [facility] Heart rate 2022-03-12 16:22:00 72 /min [facility] Body temperature 2022-03-12 16:22:00 36.78 [facility] 2022-03-12 16:22:00 18 /min [facility] Body height 2022-03-12 16:22:00 167.6 cm [facility] Body weight 2022-03-12 16:22:00 129.275 kg [facility] BMI 2022-03-12 16:22:00 46.00 kg/m2 [facility] Systolic blood 2021-03-03 22:21:00 120 mm[Hg] Univer sity of pressure [facility] Diastolic blood 2021-03-03 22:21:00 78 mm[Hg] Unive rsity of pressure [facility] Heart rate 2021-03-03 22:21:00 74 /min [facility] Body temperature 2021-03-03 22:21:00 37 Annalee [facility] Respiratory rate 2021-03-03 22:21:00 18 /min Univ ersity of [facility] Body height 2021-03-03 22:21:00 167.6 cm [facility] Body weight 2021-03-03 22:21:00 114.76 kg [facility] BMI 2021-03-03 22:21:00 40.84 kg/m2 [facility] Systolic blood 2021-02-18 20:05:00 113 mm[Hg] Univer sity of pressure [facility] Diastolic blood 2021-02-18 20:05:00 70 mm[Hg] Unive rsity of pressure [facility] Heart rate 2021-02-18 20:05:00 70 /min [facility] Body temperature 2021-02-18 20:05:00 36.83 Ann[facility]e [facility] Respiratory rate 2021-02-18 20:05:00 18 /min Univ ersity of [facility] Body height 2021-02-18 20:05:00 167.6 cm [facility] Body weight 2021-02-18 20:05:00 113.399 kg [facility] BMI 2021-02-18 20:05:00 40.35 kg/m2 [facility] Systolic blood 2021-02-10 19:07:00 115 mm[Hg] Univer sity of pressure [facility] Diastolic blood 2021-02-10 19:07:00 77 mm[Hg] Unive rsity of pressure [facility] Heart rate 2021-02-10 19:07:00 75 /min [facility] Body temperature 2021-02-10 19:07:00 36.72 Ann[facility]e [facility] Respiratory rate 2021-02-10 19:07:00 18 /min Univ ersity of [facility] Body height 2021-02-10 19:07:00 167.6 cm [facility] Body weight 2021-02-10 19:07:00 112.038 kg [facility] BMI 2021-02-10 19:07:00 39.87 kg/m2 [facility] Systolic blood 2021-01-27 19:35:00 123 mm[Hg] Univer sity of pressure [facility] Diastolic blood 2021-01-27 19:35:00 86 mm[Hg] Unive rsity of pressure [facility] Heart rate 2021-01-27 19:35:00 102 /min [facility] Body temperature 2021-01-27 19:35:00 36.89 Ann[facility]e Univ ersity of [facility] Respiratory rate 2021-01-27 19:35:00 18 /min Univ ersity of [facility] Body height 2021-01-27 19:35:00 167.6 cm [facility] Body weight 2021-01-27 19:35:00 114.306 kg [facility] BMI 2021-01-27 19:35:00 40.67 kg/m2 [facility] Systolic blood 2021-01-23 13:33:00 131 mm[Hg] Univer sity of pressure [facility] Diastolic blood 2021-01-23 13:33:00 71 mm[Hg] Unive rsity of pressure [facility] Heart rate 2021-01-23 13:33:00 95 /min [facility] Body temperature 2021-01-23 13:33:00 36.83 Ann[facility]e [facility] Respiratory rate 2021-01-23 13:33:00 18 /min Univ ersity of [facility] Oxygen saturation in 2021-01-23 13:33:00 99 /min University Arterial blood by [facility] Pulse oximetry Branch Body height 2021-01-20 22:33:00 167.6 cm [facility] Body weight 2021-01-20 22:33:00 127.007 kg [facility] BMI 2021-01-20 22:33:00 45.19 kg/m2 [facility]i ty of [facility] Respiratory rate 2021-01-21 16:42:00 20 /min Univ ersity of [facility] Systolic blood 2021-01-21 14:46:00 127 mm[Hg] Univer sity of pressure [facility] Diastolic blood 2021-01-21 14:46:00 67 mm[Hg] Unive rsity of pressure [facility] Heart rate 2021-01-21 14:46:00 97 /min Universi ty of [facility] Respiratory rate 2021-01-21 14:46:00 18 /min Univ ersity of [facility] Oxygen saturation in 2021-01-21 14:46:00 99 /min University of Arterial blood by [facility] Pulse oximetry Branch Body temperature 2021-01-21 08:15:00 36.56 Ann[facility]e Univ ersity of [facility] Body height 2021-01-20 22:33:00 167.6 cm [facility]i ty of [facility] Body weight 2021-01-20 22:33:00 127.007 kg [facility] of [facility] BMI 2021-01-20 22:33:00 45.19 kg/m2 [facility] Systolic blood 2021-01-16 15:41:00 122 mm[Hg] Univer sity of pressure [facility] Diastolic blood 2021-01-16 15:41:00 74 mm[Hg] Unive rsity of pressure [facility] Heart rate 2021-01-16 15:41:00 81 /min Universi ty of [facility] Body temperature 2021-01-16 15:41:00 36.61 Ann[facility]e Univ ersity of [facility] Respiratory rate 2021-01-16 15:41:00 18 /min Univ ersity of [facility] Body height 2021-01-16 15:41:00 167.6 cm [facility] Body weight 2021-01-16 15:41:00 127.279 kg [facility] BMI 2021-01-16 15:41:00 45.29 kg/m2 [facility] Systolic blood 2021-01-09 21:15:00 122 mm[Hg] Univer sity of pressure [facility] Diastolic blood 2021-01-09 21:15:00 68 mm[Hg] Unive rsity of pressure [facility] Heart rate 2021-01-09 21:15:00 71 /min [facility] Body temperature 2021-01-09 21:15:00 36.67 Ann[facility]e [facility] Respiratory rate 2021-01-09 21:15:00 18 /min Univ ersity of [facility] Body height 2021-01-09 21:15:00 167.6 cm [facility] Body weight 2021-01-09 21:15:00 125.556 kg [facility] BMI 2021-01-09 21:15:00 44.68 kg/m2 [facility] Systolic blood 2021-01-02 14:32:00 114 mm[Hg] Univer sity of pressure [facility] Diastolic blood 2021-01-02 14:32:00 73 mm[Hg] Unive rsity of pressure [facility] Heart rate 2021-01-02 14:32:00 82 /min [facility] Body temperature 2021-01-02 14:32:00 36.61 Ann[facility]e [facility] Respiratory rate 2021-01-02 14:32:00 18 /min Univ ersity of [facility] Body height 2021-01-02 14:32:00 167.6 cm [facility] Body weight 2021-01-02 14:32:00 123.56 kg [facility] BMI 2021-01-02 14:32:00 43.97 kg/m2 [facility] Systolic blood 2020-12-18 19:37:00 117 mm[Hg] Univer sity of pressure [facility] Diastolic blood 2020-12-18 19:37:00 74 mm[Hg] Unive rsity of pressure [facility] Heart rate 2020-12-18 19:37:00 90 /min [facility] Body temperature 2020-12-18 19:37:00 36.5 Ann[facility]e [facility] Respiratory rate 2020-12-18 19:37:00 18 /min Univ ersity of [facility] Body height 2020-12-18 19:37:00 167.6 cm [facility] Body weight 2020-12-18 19:37:00 124.195 kg [facility] BMI 2020-12-18 19:37:00 44.19 kg/m2 [facility] Systolic blood 2020-12-03 19:33:00 134 mm[Hg] Univer sity of pressure [facility] Diastolic blood 2020-12-03 19:33:00 83 mm[Hg] Unive rsity of pressure [facility] Heart rate 2020-12-03 19:33:00 90 /min [facility] Respiratory rate 2020-12-03 19:33:00 20 /min Univ ersity of [facility] Body height 2020-12-03 19:33:00 167.6 cm [facility] Body weight 2020-12-03 19:33:00 122.471 kg [facility] BMI 2020-12-03 19:33:00 43.58 kg/m2 Universi ty of [facility] Oxygen saturation in 2020-12-03 19:33:00 99 /min University of Arterial blood by [facility] Pulse oximetry Branch Systolic blood 2020-11-20 21:34:00 132 mm[Hg] Univer [facility]ity of pressure [facility] Diastolic blood 2020-11-20 21:34:00 82 mm[Hg] Unive rsity of pressure [facility] Heart rate 2020-11-20 21:34:00 93 /min [facility] Body temperature 2020-11-20 21:34:00 36.61 Ann[place]e Univ ersity of [facility] Respiratory rate 2020-11-20 21:34:00 18 /min Univ ersity of [facility] Body height 2020-11-20 21:34:00 167.6 cm [facility] Body weight 2020-11-20 21:34:00 120.203 kg [facility] BMI 2020-11-20 21:34:00 42.77 kg/m2 [facility]i ty of [facility] Systolic blood 2020-11-07 14:53:00 127 mm[Hg] Univer sity of pressure [facility] Diastolic blood 2020-11-07 14:53:00 80 mm[Hg] Unive rsity of pressure [facility] Heart rate 2020-11-07 14:53:00 76 /min [facility] Body temperature 2020-11-07 14:53:00 36.44 Ann[facility]e [facility] Respiratory rate 2020-11-07 14:53:00 18 /min Univ ersity of [facility] Body height 2020-11-07 14:53:00 167.6 cm [facility] Body weight 2020-11-07 14:53:00 120.657 kg [facility] BMI 2020-11-07 14:53:00 42.93 kg/m2 [facility] Systolic blood 2020-10-10 14:13:00 120 mm[Hg] Univer sity of pressure [facility] Diastolic blood 2020-10-10 14:13:00 74 mm[Hg] Unive rsity of pressure [facility] Heart rate 2020-10-10 14:13:00 90 /min [facility] Body temperature 2020-10-10 14:13:00 36.61 Ann[facility]e [facility] Respiratory rate 2020-10-10 14:13:00 18 /min Univ ersity of [facility] Body height 2020-10-10 14:13:00 167.6 cm [facility] Body weight 2020-10-10 14:13:00 116.574 kg [facility] BMI 2020-10-10 14:13:00 41.48 kg/m2 [facility] Systolic blood 2020-09-11 21:16:00 122 mm[Hg] Univer sity of pressure [facility] Diastolic blood 2020-09-11 21:16:00 73 mm[Hg] Unive rsity of pressure [facility] Heart rate 2020-09-11 21:16:00 85 /min [facility] Body temperature 2020-09-11 21:16:00 36.72 Ann[facility]e [facility] Respiratory rate 2020-09-11 21:16:00 18 /min Univ ersity of [facility] Body height 2020-09-11 21:16:00 167.6 cm [facility] Body weight 2020-09-11 21:16:00 117.482 kg [facility] BMI 2020-09-11 21:16:00 41.80 kg/m2 [facility] Systolic blood 2020-08-19 14:58:00 126 mm[Hg] Univer sity of pressure [facility] Diastolic blood 2020-08-19 14:58:00 74 mm[Hg] Unive rsity of pressure [facility] Heart rate 2020-08-19 14:58:00 93 /min [facility] ty [facility] Body temperature 2020-08-19 14:58:00 36.67 [facility]e [facility] Respiratory rate 2020-08-19 14:58:00 20 /min Univ ersity of [facility] Body height 2020-08-19 14:58:00 167.6 cm [facility] Body weight 2020-08-19 14:58:00 114.306 kg [facility] BMI 2020-08-19 14:58:00 40.67 kg/m2 [facility] Systolic blood 2020-07-22 14:20:00 118 mm[Hg] Univer sity of pressure [facility] Diastolic blood 2020-07-22 14:20:00 65 mm[Hg] Unive rsity of pressure [facility] Heart rate 2020-07-22 14:20:00 84 /min [facility] Body temperature 2020-07-22 14:20:00 36.83 Ann[facility]e [facility] Respiratory rate 2020-07-22 14:20:00 16 /min Univ ersity of [facility] Body height 2020-07-22 14:20:00 165.1 cm [facility] Body weight 2020-07-22 14:20:00 113.581 kg [facility] BMI 2020-07-22 14:20:00 41.67 kg/m2 [facility] Systolic blood 2020-06-24 13:46:00 111 mm[Hg] Univer sity of pressure [facility] Diastolic blood 2020-06-24 13:46:00 70 mm[Hg] Unive rsity of pressure [facility] Heart rate 2020-06-24 13:46:00 67 /min [facility] Body temperature 2020-06-24 13:46:00 36.67 Ann[facility]e [facility] Respiratory rate 2020-06-24 13:46:00 18 /min Univ ersity of [facility] Body height 2020-06-24 13:46:00 166.4 cm [facility] Body weight 2020-06-24 13:46:00 113.399 kg [facility] BMI 2020-06-24 13:46:00 40.97 kg/m2 [facility] Systolic blood 2020-05-27 13:50:00 119 mm[Hg] Univer sity of pressure [facility] Diastolic blood 2020-05-27 13:50:00 73 mm[Hg] Unive rsity of pressure [facility] Heart rate 2020-05-27 13:50:00 73 /min [facility] Body temperature 2020-05-27 13:50:00 36.83 Ann[facility]e [facility] Respiratory rate 2020-05-27 13:50:00 18 /min Univ ersity of [facility] Body height 2020-05-27 13:50:00 167.6 cm [facility] Body weight 2020-05-27 13:50:00 113.853 kg [facility] BMI 2020-05-27 13:50:00 40.51 kg/m2 [facility] Systolic blood 2019-10-31 15:11:00 115 mm[Hg] Univer sity of pressure [facility] Diastolic blood 2019-10-31 15:11:00 66 mm[Hg] Unive rsity of pressure [facility] Heart rate 2019-10-31 15:11:00 71 /min [facility] Body temperature 2019-10-31 15:11:00 36.89 [facility]e [facility] Respiratory rate 2019-10-31 15:11:00 18 /min Univ ersity of [facility] Body height 2019-10-31 15:11:00 167.6 cm [facility] Body weight 2019-10-31 15:11:00 112.401 kg [facility] BMI 2019-10-31 15:11:00 40.00 kg/m2 [facility] Procedures Procedure Date / Time Performing Clinician Source Performed CONSENT FOR CONTRACEPTION 2022-03-12 06:01:00 Doctor Claritassjann, [facility] Name [facility] POCT TEST 2022-03-12 00:00:00 [facility] [facility] CONSENT FOR CONTRACEPTION 2021-03-03 06:01:00 Doctor Claritassjann, [facility] Name [facility] POCT TEST 2021-03-03 00:00:00 Adum, [facility] POCT URINALYSIS W/O 2021-02-18 00:00:00 Adum, Amanda Estrada [facility] SPECIFIC GRAVITY [facility] DISABILITY/FMLA 2021-02-17 06:01:00 Doctor Larry, [facility] CBC WITH DIFF 2021-01-22 13:48:00 Adum, Amanda Estrada [facility] CBC WITH DIFF 2021-01-22 13:48:00 Adum, Amanda Estrada [facility] CENTRAL NEURAXIAL BLOCK 2021-01-21 15:16:[address] [facility] EXAMINATION UNDER 2021-01-21 14:41:00 Adum, Amanda Estrada [facility] ANESTHESIA [facility] EXAMINATION UNDER 2021-01-21 14:41:00 Adum, Amanda Estrada [facility] ANESTHESIA [facility] VENOUS CORD GAS 2021-01-21 14:08:00 Adum, Amanda Estrada [facility] VENOUS CORD GAS 2021-01-21 14:08:00 Adum, Amanda Estrada [facility] HEPATITIS B SURFACE 2021-01-20 23:32:00 Adum, Amanda Estrada [facility] ADC OR MATHIEU ONLY - RPR 2021-01-20 23:32:00 Adum, Amanda Colbert [facility] HIV 1/2 AG-AB WITH REFLEX 2021-01-20 23:32:00 Adum, Amanda Colbert [facility] HEPATITIS B SURFACE 2021-01-20 23:32:00 Adum, Amanda Estrada [facility] ADC OR MATHIEU ONLY - RPR 2021-01-20 23:32:00 Adum, [facility] 1/2 AG-AB WITH REFLEX 2021-01-20 23:32:00 Adum, [facility] WITH [facility]FF 2021-01-20 23:31:00 Adum, Amanda Natalie [facility] CBC WITH DIFF 2021-01-20 23:31:00 Adum, Amanda Natalie [facility] HB ABO GROUPING 2021-01-20 23:30:00 Adum, Amanda Estrada [facility] RHO (D) IMMUNE GLOBULIN 2021-01-20 23:30:00 Adum, Amanda Estrada [facility] HB ABO GROUPING 2021-01-20 23:30:00 Adum, Amanda Natalie [facility] RHO (D) IMMUNE GLOBULIN 2021-01-20 23:30:00 Adum, Amanda L [facility] CONSENT/REFUSAL FOR 2021-01-17 14:06:38 Doctor Unassigned, [facility]AT[facility] CONSENT/REFUSAL FOR 2021-01-17 14:06:38 Doctor Unassigned, [facility] DIAGNOSIS AND TREATMENT [facility] ASSIGNMENT OF BENEFITS 2021-01-17 14:06:22 Doctor Unassigned, [facility] [place] ASSIGNMENT OF BENEFITS 2021-01-17 14:06:22 Doctor Unassigned, [facility] [place] [facility] NOTICE OF PRIVACY 2021-01-16 16:39:56 Doctor Unassigned, [facility] [place] [facility] NOTICE OF PRIVACY 2021-01-16 16:39:56 Doctor Unassigned, [facility] CONSENT/REFUSAL FOR 2021-01-16 16:35:37 Doctor Unassigned, Unive rsity [facility] DIAGNOSIS AND TREATMENT [facility] CONSENT/REFUSAL FOR 2021-01-16 16:35:37 Doctor Unassigned, [facility]AT[facility] ASSIGNMENT OF BENEFITS 2021-01-16 16:35:16 Doctor Unassigned, [facility] [place] [facility] ASSIGNMENT OF BENEFITS 2021-01-16 16:35:16 Doctor Unassigned, [facility] POCT URINALYSIS W/O 2021-01-16 00:00:00 Adum, Amanda Estrada [facility] POCT URINALYSIS W/O 2021-01-09 00:00:00 Adum, Amanda Estrada [facility] NON-STRESS TEST 2021-01-02 19:35:04 Adum, [facility] DISCLOSURE AND CONSENT, 2021-01-02 05:01:00 Doctor Unassigned, [facility] MEDICAL AND SURGICAL [place] [facility] PROCEDURES POCT URINALYSIS W/O 2021-01-02 00:00:00 Adum, Amanda Estrada [facility] POCT URINALYSIS W/O 2020-12-18 19:38:00 Adum, Amanda Estrada Universi ty [facility] POCT URINALYSIS W/O 2020-12-03 19:36:00 Adum, Amanda Estrada Universi ty [facility] ASSIGNMENT OF BENEFITS 2020-11-20 21:08:57 Doctor Unassigned, Un [facility] POCT URINALYSIS W/O 2020-11-20 00:00:00 Adum, Amanda Estrada Universi ty [facility] 2 HR GLUCOSE TOLERANCE 2020-11-14 15:49:00 Adum, Amanda Chris [facility] 1 HR GLUCOSE TOLERANCE 2020-11-14 14:48:00 Adum, Amanda Chris [facility] GLUCOSE FASTING 2020-11-14 13:51:00 Adum, Amanda Estrada [facility] TDAP VACCINE, >11 YRS, IM 2020-11-07 15:32:28 Adum, Amanda Colbert [facility] POCT URINALYSIS W/O 2020-11-07 00:00:00 Adum, Amanda Estrada Universi ty [facility] POCT URINALYSIS W/O 2020-10-10 00:00:00 Adum, Amanda L [facility] SPECIFIC GRAVITY Medical Branch POCT URINALYSIS W/O 2020-09-11 00:00:00 Adum, Amanda Estrada [facility] ty [facility] SPECIFIC GRAVITY Medical Branch POCT URINALYSIS W/O 2020-08-19 00:00:00 Adum, Amanda Estrada [facility] ty [facility] SPECIFIC GRAVITY Medical Branch POCT URINALYSIS W/O 2020-07-22 14:21:00 Adum, Amanda Estrada [facility] ty [facility] SPECIFIC GRAVITY [facility] <14 WEEKS US 2020-06-24 14:30:11 Adum, Amanda Chris [facility] OB / MFG ASSOC CLINIC NOTE 2020-06-24 05:01:00 Doctor Unassigned, [facility] POCT URINALYSIS W/O 2020-06-24 00:00:00 Adum, Amanda Estrada [facility] GLUCOSE 1 HOUR POST 2020-05-28 15:06:00 Adum, [facility] CBC WITH DIFF 2020-05-28 15:06:00 Adum, Amanda Estrada [facility] HEPATITIS B SURFACE 2020-05-28 15:06:00 Adum, Amanda Estrada [facility] HCV ANTIBODY 2020-05-28 15:06:00 Adum, Amanda Estrada [facility] ADC OR MATHIEU ONLY - RPR 2020-05-28 15:06:00 Adum, Amanda Colbert [facility] HIV 1/2 AG-AB WITH REFLEX 2020-05-28 15:06:00 Adum, Amanda Colbert [facility] ANTIGEN TYPING PATIENT 2020-05-28 15:03:00 Adum, Amanda Chris [facility] PANEL IDENTIFICATION 2020-05-28 15:03:00 Adum, Amanda Patel [facility] HB ABO GROUPING 2020-05-28 15:03:00 Adum, Amanda Estrada Rolette o [facility] PATIENT RH ANTIGEN TYPING 2020-05-28 15:03:00 Adum, Amanda Colbert [facility] URINE CULTURE 2020-05-28 14:56:00 AdAmanda smith Rolette o f [facility] TRANSFUSION MEDICINE DMT 2020-05-28 00:00:00 Gloria Villa Uni versity [facility] ASSIGNMENT OF BENEFITS 2019-10-31 14:47:17 Doctor Unassigned, [facility] [place] [facility] POCT TEST 2019-10-31 00:00:00 Lorna Juan [facility] Encounters Start End Encounter Admission Attending Care Care Encounter Source Date/Time Date/Time Type Type Clinicians Facility Department ID 2022-03-12 2022-03-12 Outpatient R ADUM, [facility] [id number] Univers 10:30:00 11:10:48 AMANDA whitehead [facility] 2022-03-12 2022-03-12 Office Ad, [facility] 1.2.840.114 [id number] Univers 10:30:00 11:10:48 Visit Amanda SEGAL 350.1.13.10 ity [facility] [id number] [phone] Al dical NAL [address] [place] [address] 2022-03-12 2022-03-12 Orders Doctor DORIE 1.2.840.114 [id number] Univers 00:00:00 00:00:00 Only Unassigned, CHAYO 350.1.13.10 ity of [place] [facility] 4.2.7.2.686 Brian as [phone] [address] 2022-03-03 2022-03-03 Outpatient R ADUM, [facility] [id number] Univers 13:30:00 13:30:00 AMANDA [facility] 2021-03-24 2021-03-24 Refill Ad, [facility] 1.2.840.114 [id number] Univers 00:00:00 00:00:00 Amanda SEGAL [id number] ity of [id number] [phone] Al dical NAL [address] [place] [address] 2021-03-03 2021-03-03 Outpatient R ADUM, [facility] [id number] Univers 16:00:00 17:05:41 AMANDA ity of [facility] 2021-03-03 2021-03-03 Routine Adum, [facility] 1.2.840.114 [id number] Univers 16:00:00 17:05:41 Amanda SEGAL [id number] ity of [place] [phone] Al dical [address] 2021-03-03 2021-03-03 Orders Doctor DORIE 1.2.840.114 [id number] Univers 00:00:00 00:00:00 Only Unassigned, CHAYO 350.1.13.10 ity of [place] [facility] 4.2.7.2.686 Brian as [phone] [address] 2021-02-18 2021-02-18 Routine Adum, [facility] 1.2.840.114 [id number] Univers 13:53:00 14:53:00 Amanda Estrada PHILIPP 350.1.13.10 ity of [place] [phone] Al dic[address] 2021-02-18 2021-02-18 Outpatient R AD, [facility] [id number] Univers 13:45:00 14:53:00 AMANDA ity of [facility] 2021-02-17 2021-02-17 Orders Doctor DORIE 1.2.840.114 [id number] Univers 00:00:00 00:00:00 Only Unassigned, CHAYO 350.1.13.10 ity of [place] [facility] 4.2.7.2.686 Brian as [phone] [address] 2021-02-17 2021-02-17 Telephone Adum, [facility] 1.2.651.004 [id number] Univers 00:00:00 00:00:00 Amanda MARTINEZTON [id number] ity of [place] [phone] Al dic[address] 2021-02-12 2021-02-12 Telephone Adum, [facility] 1.2.011.504 [id number] Univers 00:00:00 00:00:00 Amanda L [place] 350.1.13.10 ity of [place].7.2.[place] [phone] [address] 2021-02-10 2021-02-10 Outpatient R ADUM, [facility] [id number] Univers 13:00:00 13:50:55 AMANDA ity of [facility] 2021-02-10 2021-02-10 Routine Adum, [facility] 1.2.840.114 [id number] Univers 12:52:07 13:50:55 Amanda L [place] 350.1.13.10 ity of [place] [phone] [address] 2021-01-29 2021-01-29 Telephone Adum, [facility] 1.2.133.319 [id number] Univers 00:00:00 00:00:00 Amanda L [place] 350.1.13.10 ity of [place] [facility] [place].7.2.[place] [phone] [address] 2021-01-27 2021-01-27 Outpatient R ADUM, [facility] [id number] Univers 13:00:00 15:55:47 AMANDA ity of [facility] 2021-01-27 2021-01-27 Routine Adum, [facility] 1.2.840.114 [id number] Univers 12:58:28 15:55:47 Amanda L [place] 350.1.13.10 ity of Visit [facility] [facility] 4[place]2.7.2.[place] [phone] [address] 2021-01-20 2021-01-23 [facility] Pat Page [facility] 1.2.840.114 [id number] Univers 15:43:00 11:30:00 Encounter Adum, Amanda L [place] 350.1.13.10 ity of [place] [facility] [place].2.7.2.[place] [phone] [address] 2021-01-20 2021-01-23 Inpatient P ADUM, [facility] MAGI [id number] Univers 15:43:00 11:30:00 AMANDA ity of [facility] 2021-01-23 2021-01-23 Telephone Adum, [facility] 1.2.101.859 [id number] Univers 00:00:00 00:00:00 Amanda SEGAL 350.1.13.10 ity of [place] [facility] 4.2.7.2.686 [facility] [phone] Al dical NAL [address] [facility] 2021-01-21 2021-01-21 Anesthesia Cameron Lewis [facility] 1.2.840.11 [id number] Univers 08:56:00 10:50:00 Event Isiah Espinal 350.1.13.10 ity of [place] 4.2.7.2.686 [facility] [phone] [facility] [address] 2021-01-21 2021-01-21 Surgery Ad, [facility] 1.2.840.114 [id number] Univers 08:15:00 09:22:00 Amanda SEGAL 350.1.13.10 ity of [place] 4.2.7.2.686 [facility] [phone] [facility] [address] 2021-01-17 2021-01-17 Laboratory Only, Adc Test [facility] 1.2.840. 114 [id number] Univers 09:08:22 09:23:22 Only Artemio Zuluaga 350.1.13.10 ity of [place] [facility] 4.2.7.2.686 [facility] [phone] [facility] [address] 2021-01-17 2021-01-17 Outpatient R MARGARETH [facility] [id number] Univers 08:15:00 08:15:00 ARTEMIO whitehead of [facility] 2021-01-16 2021-01-16 Routine Ad, [facility] 1.2.840.114 [id number] Univers 10:17:43 11:20:04 Amanda SEGAL 350.1.13.10 ity of [place] [phone] Al dical NAL [address] [place] [address] 2021-01-16 2021-01-16 Outpatient R ADUM, [facility] [id number] Univers 10:15:00 11:20:04 AMANDA ity [facility] 2021-01-09 2021-01-09 Routine Adum, [facility] 1.2.840.114 [id number] Univers 15:35:15 15:50:15 Amanda Estrada [place] 350.1.13.10 ity of Visit [place] 4[place]2.[place] [phone] Al dical NAL [address] [place] [address] 2021-01-09 2021-01-09 Outpatient R ADUM, [facility] [id number] Univers 15:45:00 15:45:00 AMANDA [facility] 2021-01-05 2021-01-05 [employer] Ultrasound, [facility] 1. .840.114 [id number] Univers 10:03:29 10:48:29 Visit Aysha RadhaBrunaton 350.1 .13.10 ity [facility] [place]2.7.2.[place] [phone] [address] 2021-01-05 2021-01-05 Outpatient R [facility] [id number] Univers 10:00:00 10:00:00 ity [facility] 2021-01-02 2021-01-02 Routine Adum, [facility] 1.2.840.114 [id number] Univers 09:08:56 10:42:15 Amanda Segal 350.1.13.10 ity of Visit [place] 4[place].2.[place] [phone] [address] 2021-01-02 2021-01-02 Outpatient R ADUM, [facility] [id number] Univers 08:45:00 08:45:00 AMANDA ity [facility] 2021-01-02 2021-01-02 Orders Doctor OSHEA 1.2.840.114 [id number] Univers 00:00:00 00:00:00 Only Unassigned, CHAYO 350.1.13.10 ity of [place] [facility] 4.2.7.2.686 Brian as [phone] [address] 2020-12-18 2020-12-18 [employer] 2, [facility] Lab [facility] 1.2.840.114 [id number] Univers 15:09:58 15:24:58 Visit Adum, Amanda Segal 350.1.13.10 ity of [place].2.[place] [phone] Al dical nal [address] [facility] 2020-12-18 2020-12-18 Routine Adum, [facility] 1.2.840.114 [id number] Univers 14:14:23 15:04:26 Amanda Segal 350.1.13.10 ity of Visit [place] 4[place]2.7.2.[place] [phone] Al dical nal [address] [facility] 2020-12-18 2020-12-18 Outpatient R ADUM, [facility] [id number] Univers 14:00:00 14:00:00 AMANDA ity of [facility] 2020-12-15 2020-12-15 Telephone Adum, [facility] [id number] Univers 00:00:00 00:00:00 Amanda Segal 350.1.13.10 ity of [place] 4[place].2.[place] [phone] Al dical nal [address] [facility] 2020-12-11 2020-12-11 Patient Doctor [facility] 1.2.840.114 [id number] Univers 00:00:00 00:00:00 Secure Msg Unassigned, [place] 350.1.13.10 ity of [place] 4[place]2.7.2.[place] [phone] Al dical NAL 134 [facility] 2020-12-03 2020-12-03 Nurse Nurse, [facility] 1.2.840.114 [id number] Univers 16:15:41 16:15:55 Visit Adum, Amanda Segal 350.1.13.10 ity of [place] 4.2.7.2.[place] [phone] [address] 2020-12-03 2020-12-03 Routine Adum, [facility] 1.2.840.114 [id number] Univers 14:18:49 15:17:35 Amanda Natalie Segal 350.1.13.10 ity of Visit [place] 4.2.7.2.[place] [phone] [address] 2020-12-03 2020-12-03 Outpatient R ADLADONNA, [facility] [id number] Univers 14:15:00 14:15:00 AMANDA ity [facility] 2020-11-20 2020-11-20 Routine Lorna Juan [facility] 1.2.840.11 [id number] Univers 16:10:08 16:25:08 Adum, Amanda Segal 350.1.13.10 ity of Visit [place] 4.2.7.2.[place] [phone] [address] 2020-11-20 2020-11-20 Outpatient R ELVA, [facility] [id number] Univers 16:00:00 16:00:00 AMANDA ity [facility] 2020-11-20 2020-11-20 Orders Doctor DORIE 1.2.840.114 [id number] Univers 00:00:00 00:00:00 Only Unassigned, CHAYO 350.1.13.10 ity of [place] [facility] 4.2.7.2.686 Brian as [phone] [address] 2020-11-19 2020-11-19 Outpatient R KEYON [facility] [id number] Univers 11:00:00 11:00:00 MARIO ity [facility] 2020-11-14 2020-11-14 [employer] 2, Adc Lab [facility] 1.2.840.114 [id number] Univers 08:47:16 09:02:16 Visit Pat Page 350.1.13.10 ity of [place] 4[place]2.7.2.[place] [phone] Al dical nal [address] [facility] 2020-11-14 2020-11-14 Outpatient R [facility] [id number] Univers 08:30:00 08:30:00 ity of [facility] 2020-11-12 2020-11-12 Patient Doctor DORIE 1.2.840.114 [id number] Univers 00:00:00 00:00:00 Secure Msg Unassigned, [place] 350.1.13.10 [facility] 4.2.7.2.686 Brian as [phone] [address] 2020-11-11 2020-11-11 Case Adum, [facility] 1.2.840.114 [id number] Univers 00:00:00 00:00:00 Management Amanda Segal 350.1.13.10 ity of [place] 4[place].2.[place] [phone] Al dical nal [address] [facility] 2020-11-07 2020-11-07 Routine Adum, [facility] 1.2.840.114 [id number] Univers 09:13:29 10:24:50 Amanda Segal 350.1.13.10 ity of Visit [place] 4.2.7.2.[place] [phone] Al dical nal [address] [facility] 2020-11-07 2020-11-07 Outpatient R AD, [facility] [id number] Univers 09:15:00 09:15:00 AMANDA ity of [facility] 2020-11-07 2020-11-07 [employer] 2, [facility] Lab [facility] 1.2.840.114 [id number] Univers 08:06:15 08:21:15 Visit Adum, Amanda Segal 350.1.13.10 ity of [place] 4[place].2.[place] [phone] Al dical nal [address] [facility] 2020-11-07 2020-11-07 [employer] 2, Adc Lab [facility] 1.2.840.114 [id number] Univers 08:06:15 08:21:15 Visit Adum, Amanda Estrada [place] 350.1.13.10 ity of [place] 4.2.7.2.[place] [phone] Al dical nal [address] [facility] 2020-11-03 2020-11-03 Refill Adum, [facility] 1.2.840.114 [id number] Univers 00:00:00 00:00:00 Amanda L [place] 350.1.13.10 ity of [place] 4[place].2.[place] [phone] Al dical nal [address] [facility] 2020-11-03 2020-11-03 Refill Adum, [facility] 1.2.840.114 [id number] Univers 00:00:00 00:00:00 Amanda L [place] 350.1.13.10 ity of [place] 4.[place].2.[place] [phone] Al dical nal [address] [facility] 2020-10-30 2020-10-30 Outpatient R YESSICA, [facility] [id number] [facility] 09:30:00 09:30:00 LORNA ity [facility] 2020-10-10 2020-10-10 Routine Adum, [facility] 1.2.840.114 [id number] Univers 08:54:09 09:59:15 Amanda Estrada [place] 350.1.13.10 ity of Visit [place] 4.2.7.2.[place] [phone] Al dical nal [address] [place] [address] 2020-10-10 2020-10-10 Outpatient R ADUM, [facility] [id number] Univers 09:15:00 09:15:00 AMANDA ity of [facility] 2020-10-03 2020-10-03 [employer] Ultrasound, [facility] 1.2 .840.114 [id number] Univers 08:59:10 09:29:10 Visit Gildardo Ogden 350.1.13.10 ity of [place] 4[place].7.2.[place] [phone] Al dical nal [address] [facility] 2020-10-03 2020-10-03 Outpatient R [facility] [id number] Univers 09:00:00 09:00:00 ity of [facility] 2020-09-12 2020-09-12 [employer] 2, Adc Lab [facility] 1.2.840.114 [id number] Univers 09:24:46 09:39:46 Visit Adladonna, Amanda Segal 350.1.13.10 ity of [place] 4[place].2.[place] [phone] Al dical nal [address] [facility] 2020-09-12 2020-09-12 Outpatient R ADUM, [facility] [id number] Univers 08:45:00 08:45:00 AMANDA ity [facility] 2020-09-11 2020-09-11 Routine Adum, [facility] 1.2.840.114 [id number] Univers 15:51:46 16:57:46 Amanda Segal 350.1.13.10 ity of Visit [place] 4[place].2.[place] [phone] Al dical nal [address] [facility] 2020-09-11 2020-09-11 Outpatient R ADUM, [facility] [id number] Univers 16:00:00 16:00:00 AMANDA ity [facility] 2020-09-11 2020-09-11 Telephone Adum, [facility] [id number] [id number] Univers 00:00:00 00:00:00 Amanda Segal 350.1.13.10 ity of [place] [phone] Al dical nal [address] [facility] 2020-09-05 2020-09-05 [employer] 5, [facility] Us Room UNIVERSIT 1 .2.840.114 [id number] Univers 10:30:43 11:45:43 Visit Darshan Dugan [facility] 350.1.13.10 ity of CL[place] [phone] [address] 2020-09-05 2020-09-05 Outpatient P [facility] [id number] Univers 10:30:00 10:30:00 ity of [facility] 2020-09-05 2020-09-05 Outpatient P [facility] [id number] Univers 09:00:00 09:00:00 ity of [facility] 2020-08-26 2020-08-26 [employer] 2, Adc Lab [facility] 1.2.840.114 [id number] Univers 09:08:55 09:23:55 Visit Camilo Pat Frederic Segal 350.1.13.10 ity of [place] 4[place].2.[place] [phone] Me dical nal [address] [facility] 2020-08-26 2020-08-26 Outpatient R [facility] [id number] Univers 09:00:00 09:00:00 ity of [facility] 2020-08-19 2020-08-19 Routine Adum, [facility] 1.2.840.114 [id number] Univers 09:43:24 10:42:17 Amanda Segal 350.1.13.10 ity of Visit [place] 4[place].2.[place] [phone] Al dical nal [address] [facility] 2020-08-19 2020-08-19 Outpatient R ADUM, [facility] [id number] Univers 10:00:00 10:00:00 AMANDA ity of [facility] 2020-08-04 2020-08-04 Outpatient R [facility] [id number] Univers 14:00:00 14:00:00 ity of [facility] 2020-08-04 2020-08-04 Telemedici Faculty, [facility] [id number] Univers 09:02:28 09:17:28 ne Visit Nilam Lafleur [employer] [id number] ity of REGIONAL [id number] Brian as MATERNAL [phone] Med ical & CHILD [address] [place] [address] 2020-07-22 2020-07-22 [employer] 2, [facility] [id number] Univers 10:07:44 10:22:44 Visit Adladonna, Amanda Segal [id number] ity of [id number] [phone] Al dical nal 353 [facility] 2020-07-22 2020-07-22 Routine Adum, [facility] [id number] [id number] Univers 09:05:02 09:59:42 Amanda Segal [id number] ity of Visit [place] [id number] [phone] Al dical nal 134 [facility] 2020-07-22 2020-07-22 Outpatient R ADLADONNA, [facility] [id number] Univers 09:00:00 09:00:00 AMANDA [facility] 2020-07-07 2020-07-07 Outpatient R MALLIKA [facility] [id number] Univers 15:30:00 15:30:00 VINEET [facility] 2020-07-07 2020-07-07 Telemedici Faculty, [facility] 1.2.840.114 [id number] Univers 12:17:13 14:39:50 ne Visit Vineet Gerardo BENCH WORKER HOLLOW HANDLE 350.1.13.10 ity of [facility] 4.2.7.2.686 Brian as MATERNAL [phone] [facility] ical & CHILD [address] [place] [address] 2020-06-24 2020-06-24 Routine Adum, [facility] 1.2.840.114 [id number] Univers 08:15:03 09:35:57 Amanda Segal 350.1.13.10 ity of [place] [phone] Al dical [facility] [address] [facility] 2020-06-24 2020-06-24 Outpatient R ADUM, [facility] [id number] Univers 08:00:00 08:00:00 AMANDA [facility] 2020-06-24 2020-06-24 Telephone Adum, [facility] [id number] Univers 00:00:00 00:00:00 Amanda Segal 350.1.13.10 it[place] of [place] [phone] Al dical nal [address] [facility] 2020-06-24 2020-06-24 Orders Doctor DORIE 1.2.840.114 [id number] Univers 00:00:00 00:00:00 Only Unassigned, CHAYO 350.1.13.10 ity of [facility] 4.2.7.2.686 Brian as [phone] [facility] [address] [place] 2020-06-11 2020-06-11 Outpatient R ELVA, [facility] [id number] Univers 09:15:00 09:15:00 AMANDA whitehead of [facility] 2020-06-11 2020-06-11 [employer] Mechan[employer] 2, Adc Lab [facility] 1.2.840.114 [id number] Univers 08:59:33 09:14:33 Visit Adladonna, Amanda Segal 350.1.13.10 it[place] of [place] [phone] Al dical nal [address] [facility] 2020-06-10 2020-06-10 Case Elva [facility] 1.2.840.114 [id number] Univers 00:00:00 00:00:00 Management Amanda Segal 350.1.13.10 it[place] of [place] [phone] Al dical nal [address] [facility] 2020-06-03 2020-06-03 Patient Fabián [facility] 1.2.840.114 [id number] Univers 00:00:00 00:00:00 Outreach Fam PRIMARY 350.1.13.10 i ty of formerly [facility] 4[place]2.7.2.[place] [phone] Al dical [address] 2020-05-29 2020-05-29 Hospital ROSA Zuluaga 1.2.840.114 [id number] Univers 12:24:00 23:59:00 Encounter Artemio Sharma 350.1.13.10 ity of [facility] 4.2.7.2.686 Brian as [phone] [address] 2020-05-29 2020-05-29 Outpatient R MARGARETH [facility] ACO [id number] Univers 00:00:00 00:00:00 ARTEMIO ity [facility] 2020-05-28 2020-05-28 [employer] 2, Adc Lab [facility] 1.2.840.114 [id number] Univers 08:48:18 09:03:18 Visit Amanda Stevenson 350.1.13.10 it[place] of [place] [phone] Al dical nal [address] [facility] 2020-05-28 2020-05-28 Outpatient R [facility] [id number] Univers 08:45:00 08:45:00 ity [facility] 2020-05-27 2020-05-27 Initial Adladonna, [facility] 1.2.840.114 [id number] Univers 08:24:12 09:37:25 Amanda Segal 350.1.13.10 ity of Visit [place] [phone] Al dical nal 134 [facility] 2020-05-27 2020-05-27 Outpatient R ELVA [facility] [id number] Univers 08:30:00 08:30:00 AMANDA [facility] 2020-05-22 2020-05-22 Telephone Yessica [facility] 1.2.840.114 [id number] Univers 00:00:00 00:00:00 Lorna Segal 350.1.13.10 i ty of [place] [phone] Al dical nal [address] [facility] 2019-10-31 2019-10-31 Office Yessica [facility] 1.2.019.047 [id number] Univers 09:50:09 10:43:14 Visit Lorna Segal 350.1.13.10 i ty of [place] [phone] Al dical nal [address] [facility] 2019-10-31 2019-10-31 [facility] [id number] Univers 09:30:00 09:30:00 L[facility] 2019-10-31 2019-10-31 Orders Doctor DORIE 1.2.840.114 [id number] Univers 00:00:00 00:00:00 Only Unassigned, CHAYO 350.1.13.10 ity of [place] [facility] 4.2.7.2.686 Brian as [phone] [address] 2019-10-15 2019-10-15 [facility] [id number] Univers 09:30:00 09:30:00 [facility] 2019-09-26 2019-09-26 Patient Doctor DORIE 1.2.840.114 [id number] Univers 00:00:00 00:00:00 Secure Msg Unassigned, CHAYO 350.1.13.10 ity of [place] [facility] 4.2.7.2.686 Brian as [phone] [address] 2019-09-24 2019-09-24 Laboratory Lab, Adc Fam Pob I [facility] 1.2. 840.114 [id number] Univers 16:01:02 16:21:02 Only Anene, [facility] 350.1.13.10 ity of [place] 4.2.7.2.686 Brian as Professio [phone] [address] Office [address] 2019-09-24 2019-09-24 Outpatient R [facility] [id number] Univers 16:00:00 16:00:00 [facility] Results Test Description Test Time Test Comments Results Result Comments Source POCT TEST 2022-03-12 19:34:00 Test Item Value Reference Range Interpretation Comme nts POCT PREG (test code = 1605) Negative On board controls acceptable with C Line (test code = 3574) Yes POCT PREG LOT # (test code = 3575) POCT PREG TEST DATE (test code = 3576) [id number] 19:34:00 Test Item Value Reference Range Interpretation Comments POCT PREG (test code = 1605) Negative On board controls acceptable with C Yes Line (test code = 3574) POCT PREG LOT # (test code = 3575) POCT PREG TEST DATE (test code = 3576) [facility] [id number] 23:16:00 Test Item Value Reference Range Interpretation Comments POCT PREG (test code = 1605) Negative On board controls acceptable with C Yes Line (test code = 3574) POCT PREG LOT # (test code = 3575) POCT PREG TEST DATE (test code = 357) Lab Interpretation (test code = Normal 79782-2) [facility] URINALYSIS W/O SPECIFIC [id number] 20:37:00 Test Item Value Reference Range Interpretation Comments POCT PH U (test code = 3254) 5 mg/dl 5-8 POCT U LEUK EST (test code = 2+ Negative - Negative 3263) POCT U NIT (test code = 3262) Negative Negative - Negative POCT U PROT (test code = 3259) Negative Negative - Negative POCT U GLU (test code = 3256) Negative Negative - Negative POCT U KETONE (test code = 3258) Negative Negative - Negative POCT U BLD (test code = 3257) Tracae Negative - Negative [facility] [id number] 14:08:40 Test Item Value Reference Range Interpretation Comments WBC (test code = See_Comment H [Automated 8490-2) message] The system which generated this result transmit hans reference range : 4.30 - 11.10 10*3/?L. The reference range was not used to interpret this result as normal/abnormal . RBC (test code = See_Comment L [Automated 299-8) message] The system which generated this result transmit hans reference range : 3.93 - 5.25 10*6/?L. The reference range was not used to interpret this result as normal/abnormal . HGB (test code = 10.5 g/dL 11.6-15.0 L 718-7) HCT (test code = 32.3 % 35.7-45.2 L 4544-3) MCV (test code = 96.4 fL 80.6-95.5 H 787-2) MCH (test code = 31.3 pg 25.9-32.8 785-6) MCHC (test code = 32.5 g/dL 31.6-35.1 786-4) RDW-SD (test code = 49.3 fL 39.0-49.9 19676-3) RDW-CV (test code = 14.0 % 12.0-15.5 788-0) PLT (test code = See_Comment [Automated 777-3) message] The system which generated this result transmit hans reference range : 166 - 358 10*3/ ?L. The reference range was not u sed to interpret th is result as normal/abnormal . MPV (test code = 11.0 fL 9.5-12.9 32420-7) NRBC/100 WBC (test See_Comment [Automat ed code = 5164993251) message] The system which generated this result transmit hans reference range : 0.0 - 10.0 /100 WBCs. The reference range was not used to interpret this result as normal/abnormal . NRBC x10^3 (test code <0.01 See_Comment [Auto mated = 9097444707) message] The system which generated this result transmit hans reference range : 10*3/?L. The reference range was not used to interpret this result as normal/abnormal . GRAN MAT (NEUT) % 83.4 % (test code = 770-8) IMM GRAN % (test code 0.80 % = 7830278628) LYMPH % (test code = 12.0 % 736-9) MONO % (test code = 3.5 % 5905-5) EOS % (test code = 0.1 % 713-8) BASO % (test code = 0.2 % 706-2) GRAN MAT x10^3(ANC) 10.15 10*3/uL 1.88-7.09 H (test code = 7154921522) IMM GRAN x10^3 (test 0.10 10*3/uL 0.00-0.06 H code = 1604977931) LYMPH x10^3 (test code 1.46 10*3/uL 1.32-3.29 = 731-0) MONO x10^3 (test code 0.42 10*3/uL 0.33-0.92 = 742-7) EOS x10^3 (test code = <0.03 0.03-0.39 L 711-2) BASO x10^3 (test code 0.03 10*3/uL 0.01-0.07 = 704-7) Lab Interpretation Abnormal (test code = 22658-8) [facility] with [id number] 14:08:40 Test Item Value Reference Range Interpretation Comments WBC (test code = See_Comment H [Automated 6690-2) message] The system which generated this result transmit hans reference range : 4.30 - 11.10 10*3/?L. The reference range was not used to interpret this result as normal/abnormal . RBC (test code = See_Comment L [Automated 789-8) message] The system which generated this result transmit hans reference range : 3.93 - 5.25 10*6/?L. The reference range was not used to interpret this result as normal/abnormal . HGB (test code = 10.5 g/dL 11.6-15.0 L 718-7) HCT (test code = 32.3 % 35.7-45.2 L 4544-3) MCV (test code = 96.4 fL 80.6-95.5 H 787-2) MCH (test code = 31.3 pg 25.9-32.8 785-6) MCHC (test code = 32.5 g/dL 31.6-35.1 786-4) RDW-SD (test code = 49.3 fL 39.0-49.9 54122-5) RDW-CV (test code = 14.0 % 12.0-15.5 788-0) PLT (test code = See_Comment [Automated 777-3) message] The system which generated this result transmit hans reference range : 166 - 358 10*3/ ?L. The reference range was not u sed to interpret th is result as normal/abnormal . MPV (test code = 11.0 fL 9.5-12.9 76839-5) NRBC/100 WBC (test See_Comment [Automat ed code = 9310187481) message] The system which generated this result transmit hans reference range : 0.0 - 10.0 /100 WBCs. The reference range was not used to interpret this result as normal/abnormal . NRBC x10^3 (test code <0.01 See_Comment [Auto mated = 9118818493) message] The system which generated this result transmit hans reference range : 10*3/?L. The reference range was not used to interpret this result as normal/abnormal . GRAN MAT (NEUT) % 83.4 % (test code = 770-8) IMM GRAN % (test code 0.80 % = 2629632849) LYMPH % (test code = 12.0 % 736-9) MONO % (test code = 3.5 % 5905-5) EOS % (test code = 0.1 % 713-8) BASO % (test code = 0.2 % 706-2) GRAN MAT x10^3(ANC) 10.15 10*3/uL 1.88-7.09 H (test code = 4848148203) IMM GRAN x10^3 (test 0.10 10*3/uL 0.00-0.06 H code = 4875887130) LYMPH x10^3 (test code 1.46 10*3/uL 1.32-3.29 = 731-0) MONO x10^3 (test code 0.42 10*3/uL 0.33-0.92 = 742-7) EOS x10^3 (test code = <0.03 0.03-0.39 L 711-2) BASO x10^3 (test code 0.03 10*3/uL 0.01-0.07 = 704-7) Lab Interpretation Abnormal (test code = 26448-7) [facility] (D) IMMUNE [id number] 18:48:31 Test Item Value Reference Range Interpretation Comments RHIG CANDIDATE? No- see comment Patient i s not a (test code = candidate for R hIg- 5055) Patient is Rh Positive.Perfor med at [facility] Laboratory Services - [facility] Blood [address] [place] [phone] Free: [phone] A No. [id number] [facility] (D) IMMUNE [id number] 18:48:31 Test Item Value Reference Range Interpretation Comments RHIG CANDIDATE? No- see comment Patient i s not a (test code = candidate for R hIg- 5055) Patient is Rh Positive.Perfor med at [facility] Laboratory Services - [facility] Blood [address] [place] [phone] Free: [phone] A No. [id number] [facility] CORD [id number] 14:21:13 Test Item Value Reference Range Interpretation Comments VENOUS BASE EXCESS, CORD mEq/L (test code = 5659085404) VENOUS PH, CORD (test 7.25-7.45 L code = 2408612620) VENOUS PC02, CORD (test See_Comment [Au tomated message] code = 8473838871) The syste m which generated this result transmitted ref erence range: 27 - 49 mmHg. The reference r azra was not used to interpret this result as normal/abnor mal. VENOUS PO2, CORD (test See_Comment [Aut omated message] code = 7508187895) The syste m which generated this result transmitted ref erence range: 17 - 41 mmHg. The reference r azra was not used to interpret this result as normal/abnor mal. VENOUS BICARBONATE, CORD See_Comment [A utomated message] (test code = 2011966638) The system which generated this result transmitted ref erence range: 12 - 29 mEq/L. The reference r azra was not used to interpret this result as normal/abnor mal. Lab Interpretation (test Abnormal code = 95812-6) [facility] CORD [id number] 14:21:13 Test Item Value Reference Range Interpretation Comments VENOUS BASE EXCESS, CORD mEq/L (test code = 1379292067) VENOUS PH, CORD (test 7.25-7.45 L code = 9929177305) VENOUS PC02, CORD (test See_Comment [Au tomated message] code = 5190379125) The syste m which generated this result transmitted ref erence range: 27 - 49 mmHg. The reference r azra was not used to interpret this result as normal/abnor mal. VENOUS PO2, CORD (test See_Comment [Aut omated message] code = 0693379265) The syste m which generated this result transmitted ref erence range: 17 - 41 mmHg. The reference r azra was not used to interpret this result as normal/abnor mal. VENOUS BICARBONATE, CORD See_Comment [A utomated message] (test code = 4535340838) The system which generated this result transmitted ref erence range: 12 - 29 mEq/L. The reference r azra was not used to interpret this result as normal/abnor mal. Lab Interpretation (test Abnormal code = 30981-2) [facility] CORD [id number] 14:18:36 Test Item Value Reference Range Interpretation Comments BASE EXCESS, CORD (test mEq/L code = 8957874041) AC PH, CORD (BEAKER) 7.18-7.38 L (test code = 4924670374) PC02, CORD (test code = See_Comment [Au tomated message] 0664022657) The system ipDatatel generated this result transmitted ref erence range: 32 - 66 mmHg. The reference r azra was not used to interpret this result as normal/abnor mal. PO2, CORD (test code = See_Comment [Aut omated message] 1436524971) The system [employer] generated this result transmitted ref erence range: 10 - 30 mmHg. The reference r azra was not used to interpret this result as normal/abnor mal. BICARBONATE, CORD (test See_Comment [Au tomated message] code = 6580107819) The syste m which generated this result transmitted ref erence range: 17 - 27 mEq/L. The reference r azra was not used to interpret this result as normal/abnor mal. Lab Interpretation (test Abnormal code = 59063-9) [facility] CORD [id number] 14:18:36 Test Item Value Reference Range Interpretation Comments BASE EXCESS, CORD (test mEq/L code = 0288507269) AC PH, CORD (BEAKER) 7.18-7.38 L (test code = 8558701046) PC02, CORD (test code = See_Comment [Au tomated message] 4473635504) The system [employer] generated this result transmitted ref erence range: 32 - 66 mmHg. The reference r azra was not used to interpret this result as normal/abnor mal. PO2, CORD (test code = See_Comment [Aut omated message] 4135117324) The system [employer] generated this result transmitted ref erence range: 10 - 30 mmHg. The reference r azra was not used to interpret this result as normal/abnor mal. BICARBONATE, CORD (test See_Comment [Au tomated message] code = 8739992952) The syste m which generated this result transmitted ref erence range: 17 - 27 mEq/L. The reference r azra was not used to interpret this result as normal/abnor mal. Lab Interpretation (test Abnormal code = 90414-8) [facility] OR MATHIEU ONLY - [id number] 06:21:09 Test Item Value Reference Range Interpretation Comments RPR (Qualitative) (test code = Nonreactive Nonreactive 72639-1) Lab Interpretation (test code = Normal 54782-3) [facility] OR MATHIEU ONLY - [id number] 06:21:09 Test Item Value Reference Range Interpretation Comments RPR (Qualitative) (test code = Nonreactive Nonreactive 61861-9) Lab Interpretation (test code = Normal 02121-7) [facility] B Surface [id number] 05:32:19 Test Item Value Reference Range Interpretation Comments HBsAg Semi-Quantitative (test code = Negative Negative 5195-3) [facility] [id number] 05:32:19 Test Item Value Reference Range Interpretation Comments HBsAg Semi-Quantitative (test code = Negative Negative 5195-3) [facility] 1/2 AG-AB WITH [id number] 01:21:42 Test Item Value Reference Range Interpretation Comments HIV Negative Negative Semi-quantitative (test code = 30316-5) YAZAN (test code = Non-reactive for HIV-1 YAZAN) antigen and HIV-1/HIV-2 antibodies. ?No laboratory evidence of HIV infection. ?Repeat in 2-4 weeks if acute HIV infection is suspected. [facility] 1/2 AG-AB WITH [id number] 01:21:42 Test Item Value Reference Range Interpretation Comments HIV Negative Negative Semi-quantitative (test code = 21600-7) YAZAN (test code = Non-reactive for HIV-1 YAZAN) antigen and HIV-1/HIV-2 antibodies. ?No laboratory evidence of HIV infection. ?Repeat in 2-4 weeks if acute HIV infection is suspected. [facility] [id number] 00:20:01 Test Item Value Reference Range Interpretation Comments ABO & RH (test code A Positive Performe d at [facility] = 20) Laboratory [facility] [place], [place] [address]Toll Free: [phone] A No. [id number] IAT (test code = Negative Performed a t [facility] 1185) Laboratory [facility] [place], [place] [address]Toll Free: [phone] A No. [id number] [facility] [id number] 00:20:01 Test Item Value Reference Range Interpretation Comments ABO & RH (test code A Positive Performe d at [facility] = 20) Laboratory [facility] Blood [place] [address]Toll Free: [phone] A No. [id number] IAT (test code = Negative Performed a t [facility] 1185) Laboratory [facility] [place], [place] [address]Toll Free: [phone] A No. [id number] [facility] with [id number] 23:47:16 Test Item Value Reference Range Interpretation Comments WBC (test code = See_Comment [Automated 9650-2) message] The sy stem which generated this result transmitted reference range : 4.30 - 11.10 10*3/?L. The reference range was not used to interpret this result as normal/abnormal . RBC (test code = See_Comment [Automated 426-8) message] The sy stem which generated this result transmitted reference range : 3.93 - 5.25 10*6/?L. The reference range was not used to interpret this result as normal/abnormal . HGB (test code = 12.5 g/dL 11.6-15.0 718-7) HCT (test code = 37.3 % 35.7-45.2 4544-3) MCV (test code = 92.8 fL 80.6-95.5 787-2) MCH (test code = 31.1 pg 25.9-32.8 785-6) MCHC (test code = 33.5 g/dL 31.6-35.1 786-4) RDW-SD (test code = 46.4 fL 39.0-49.9 09842-0) RDW-CV (test code = 13.6 % 12.0-15.5 788-0) PLT (test code = See_Comment [Automated 777-3) message] The sy stem which generated this result transmitted reference range : 166 - 358 10*3/ ?L. The reference r azra was not used to interpret this result as normal/abnormal . MPV (test code = 11.0 fL 9.5-12.9 72338-9) NRBC/100 WBC (test See_Comment [Automat ed code = 5848311457) message] The system which generated this result transmitted reference range : 0.0 - 10.0 /100 WBCs. The refer ence range was not u sed to interpret th is result as normal/abnormal . NRBC x10^3 (test code <0.01 See_Comment [Auto mated = 5926463040) message] The s ystem which generated this result transmitted reference range : 10*3/?L. The reference range was not used to interpret this result as normal/abnormal . GRAN MAT (NEUT) % 73.7 % (test code = 770-8) IMM GRAN % (test code 0.70 % = 0214001437) LYMPH % (test code = 19.1 % 736-9) MONO % (test code = 5.5 % 5905-5) EOS % (test code = 0.7 % 713-8) BASO % (test code = 0.3 % 706-2) GRAN MAT x10^3(ANC) 7.07 10*3/uL 1.88-7.09 (test code = 8601390332) IMM GRAN x10^3 (test 0.07 10*3/uL 0.00-0.06 H code = 5499992142) LYMPH x10^3 (test code 1.84 10*3/uL 1.32-3.29 = 731-0) MONO x10^3 (test code 0.53 10*3/uL 0.33-0.92 = 742-7) EOS x10^3 (test code = 0.07 10*3/uL 0.03-0.39 711-2) BASO x10^3 (test code 0.03 10*3/uL 0.01-0.07 = 704-7) Lab Interpretation Abnormal (test code = 96092-6) [facility] with [id number] 23:47:16 Test Item Value Reference Range Interpretation Comments WBC (test code = See_Comment [Automated 90-2) message] The sy stem which generated this result transmitted reference range : 4.30 - 11.10 10*3/?L. The reference range was not used to interpret this result as normal/abnormal . RBC (test code = See_Comment [Automated 789-8) message] The sy stem which generated this result transmitted reference range : 3.93 - 5.25 10*6/?L. The reference range was not used to interpret this result as normal/abnormal . HGB (test code = 12.5 g/dL 11.6-15.0 718-7) HCT (test code = 37.3 % 35.7-45.2 4544-3) MCV (test code = 92.8 fL 80.6-95.5 787-2) MCH (test code = 31.1 pg 25.9-32.8 785-6) MCHC (test code = 33.5 g/dL 31.6-35.1 786-4) RDW-SD (test code = 46.4 fL 39.0-49.9 56188-5) RDW-CV (test code = 13.6 % 12.0-15.5 788-0) PLT (test code = See_Comment [Automated 777-3) message] The sy stem which generated this result transmitted reference range : 166 - 358 10*3/ ?L. The reference r azra was not used to interpret this result as normal/abnormal . MPV (test code = 11.0 fL 9.5-12.9 79480-2) NRBC/100 WBC (test See_Comment [Automat ed code = 7929996315) message] The system which generated this result transmitted reference range : 0.0 - 10.0 /100 WBCs. The refer ence range was not u sed to interpret th is result as normal/abnormal . NRBC x10^3 (test code <0.01 See_Comment [Auto mated = 1145264659) message] The s ystem which generated this result transmitted reference range : 10*3/?L. The reference range was not used to interpret this result as normal/abnormal . GRAN MAT (NEUT) % 73.7 % (test code = 770-8) IMM GRAN % (test code 0.70 % = 4678118102) LYMPH % (test code = 19.1 % 736-9) MONO % (test code = 5.5 % 5905-5) EOS % (test code = 0.7 % 713-8) BASO % (test code = 0.3 % 706-2) GRAN MAT x10^3(ANC) 7.07 10*3/uL 1.88-7.09 (test code = 7893646253) IMM GRAN x10^3 (test 0.07 10*3/uL 0.00-0.06 H code = 2062314517) LYMPH x10^3 (test code 1.84 10*3/uL 1.32-3.29 = 731-0) MONO x10^3 (test code 0.53 10*3/uL 0.33-0.92 = 742-7) EOS x10^3 (test code = 0.07 10*3/uL 0.03-0.39 711-2) BASO x10^3 (test code 0.03 10*3/uL 0.01-0.07 = 704-7) Lab Interpretation Abnormal (test code = 60432-8) [facility] URINALYSIS W/O SPECIFIC [id number] 15:42:00 Test Item Value Reference Range Interpretation Comments POCT PH U (test code = 3254) n/a 5-8 POCT U LEUK EST (test code = 3263) n/a Negative - Negative POCT U NIT (test code = 3262) na/ Negative - Negative POCT U PROT (test code = 3259) neg Negative - Negative POCT U GLU (test code = 3256) neg Negative - Negative POCT U KETONE (test code = 3258) n/a Negative - Negative POCT U BLD (test code = 3257) n/a Negative - Negative Lab Interpretation (test code = Normal 50304-4) [facility] URINALYSIS W/O SPECIFIC [id number] 21:02:00 Test Item Value Reference Range Interpretation Comments POCT PH U (test code = 3254) n/a 5-8 POCT U LEUK EST (test code = 3263) n/a Negative - Negative POCT U NIT (test code = 3262) n/a Negative - Negative POCT U PROT (test code = 3259) neg Negative - Negative POCT U GLU (test code = 3256) neg Negative - Negative POCT U KETONE (test code = 3258) n/a Negative - Negative POCT U BLD (test code = 3257) n/a Negative - Negative Lab Interpretation (test code = Normal 65463-7) [facility] URINALYSIS W/O SPECIFIC [id number] 14:34:00 Test Item Value Reference Range Interpretation Comments POCT PH U (test code = 3254) n/a 5-8 POCT U LEUK EST (test code = 3263) n/a Negative - Negative POCT U NIT (test code = 3262) n/a Negative - Negative POCT U PROT (test code = 3259) neg Negative - Negative POCT U GLU (test code = 3256) neg Negative - Negative POCT U KETONE (test code = 3258) n/a Negative - Negative POCT U BLD (test code = 3257) n/a Negative - Negative [facility] URINALYSIS W/O SPECIFIC [id number] 19:38:00 Test Item Value Reference Range Interpretation Comments POCT PH U (test code = 3254) n/a 5-8 POCT U LEUK EST (test code = 3263) n/a Negative - Negative POCT U NIT (test code = 3262) n/a Negative - Negative POCT U PROT (test code = 3259) trace Negative - Negative POCT U GLU (test code = 3256) 1+ Negative - Negative POCT U KETONE (test code = 3258) n/a Negative - Negative POCT U BLD (test code = 3257) n/a Negative - Negative [facility] URINALYSIS W/O SPECIFIC [id number] 19:36:00 Test Item Value Reference Range Interpretation Comments POCT PH U (test code = 3254) negative 5-8 POCT U LEUK EST (test code = negative Negative - Negative 3263) POCT U NIT (test code = negative Negative - Negative 3262) POCT U PROT (test code = negative Negative - Negative 3259) POCT U GLU (test code = positive 250 Negative - Negative 3256) POCT U KETONE (test code = negative Negative - Negative 3258) POCT U BLD (test code = negative Negative - Negative 3257) [facility] URINALYSIS W/O SPECIFIC [id number] 19:36:00 Test Item Value Reference Range Interpretation Comments POCT PH U (test code = 3254) negative 5-8 POCT U LEUK EST (test code = negative Negative - Negative 3263) POCT U NIT (test code = negative Negative - Negative 3262) POCT U PROT (test code = negative Negative - Negative 3259) POCT U GLU (test code = positive 250 Negative - Negative 3256) POCT U KETONE (test code = negative Negative - Negative 3258) POCT U BLD (test code = negative Negative - Negative 3257) [facility] URINALYSIS W/O SPECIFIC [id number] 21:49:00 Test Item Value Reference Range Interpretation Comments POCT PH U (test code = 3254) n/a 5-8 POCT U LEUK EST (test code = 3263) n/a Negative - Negative POCT U NIT (test code = 3262) n/a Negative - Negative POCT U PROT (test code = 3259) neg Negative - Negative POCT U GLU (test code = 3256) neg Negative - Negative POCT U KETONE (test code = 3258) n/a Negative - Negative POCT U BLD (test code = 3257) n/a Negative - Negative Lab Interpretation (test code = Normal 62943-2) [facility] URINALYSIS W/O SPECIFIC [id number] 21:49:00 Test Item Value Reference Range Interpretation Comments POCT PH U (test code = 3254) n/a 5-8 POCT U LEUK EST (test code = 3263) n/a Negative - Negative POCT U NIT (test code = 3262) n/a Negative - Negative POCT U PROT (test code = 3259) neg Negative - Negative POCT U GLU (test code = 3256) neg Negative - Negative POCT U KETONE (test code = 3258) n/a Negative - Negative POCT U BLD (test code = 3257) n/a Negative - Negative Lab Interpretation (test code = Normal 97662-7) [place] [address] [facility] GLUCOSE TOLERANCE [id number] 16:49:05 Test Item Value Reference Range Interpretation Comments GLUC 2 HR (test code = 6754739404) 136 mg/dL 70-120 H Lab Interpretation (test code = Abnormal 53528-9) [place] [address] HR GLUCOSE TOLERANCE [id number] 16:49:05 Test Item Value Reference Range Interpretation Comments GLUC 2 HR (test code = 3481135390) 136 mg/dL 70-120 H Lab Interpretation (test code = Abnormal 83931-2) [place] [address] HR GLUCOSE TOLERANCE [id number] 16:48:44 Test Item Value Reference Range Interpretation Comments GLUC 1 HR (test code = 9307267894) 182 mg/dL 120-170 H Lab Interpretation (test code = Abnormal 99310-2) [place] [address] HR GLUCOSE TOLERANCE [id number] 16:48:44 Test Item Value Reference Range Interpretation Comments GLUC 1 HR (test code = 5241704825) 182 mg/dL 120-170 H Lab Interpretation (test code = Abnormal 59573-0) [facility] [id number] 16:35:23 Test Item Value Reference Range Interpretation Comments GLU FASTNG (test code = 8658816365) 94 mg/dL 70-110 Lab Interpretation (test code = Normal 97255-6) [facility] [id number] 16:35:23 Test Item Value Reference Range Interpretation Comments GLU FASTNG (test code = 2886498764) 94 mg/dL 70-110 Lab Interpretation (test code = Normal 72122-4) [facility] [id number] 14:57:00 Test Item Value Reference Range Interpretation Comments POCT PH U (test code = 3254) n/a 5-8 POCT U LEUK EST (test code = 3263) n/a Negative - Negative POCT U NIT (test code = 3262) n/a Negative - Negative POCT U PROT (test code = 3259) neg Negative - Negative POCT U GLU (test code = 3256) Negative - Negative POCT U KETONE (test code = 3258) n/a Negative - Negative POCT U BLD (test code = 3257) n/a Negative - Negative Lab Interpretation (test code = Normal 85554-3) [facility] URINALYSIS W/O SPECIFIC [id number] 14:57:00 Test Item Value Reference Range Interpretation Comments POCT PH U (test code = 3254) n/a 5-8 POCT U LEUK EST (test code = 3263) n/a Negative - Negative POCT U NIT (test code = 3262) n/a Negative - Negative POCT U PROT (test code = 3259) neg Negative - Negative POCT U GLU (test code = 3256) Negative - Negative POCT U KETONE (test code = 3258) n/a Negative - Negative POCT U BLD (test code = 3257) n/a Negative - Negative Lab Interpretation (test code = Normal 48549-3) [facility] URINALYSIS W/O SPECIFIC [id number] 14:57:00 Test Item Value Reference Range Interpretation Comments POCT PH U (test code = 3254) n/a 5-8 POCT U LEUK EST (test code = 3263) n/a Negative - Negative POCT U NIT (test code = 3262) n/a Negative - Negative POCT U PROT (test code = 3259) neg Negative - Negative POCT U GLU (test code = 3256) Negative - Negative POCT U KETONE (test code = 3258) n/a Negative - Negative POCT U BLD (test code = 3257) n/a Negative - Negative Lab Interpretation (test code = Normal 63942-1) [facility] URINALYSIS W/O SPECIFIC [id number] 14:21:00 Test Item Value Reference Range Interpretation Comments POCT PH U (test code = 3254) n/a 5-8 POCT U LEUK EST (test code = 3263) n/a Negative - Negative POCT U NIT (test code = 3262) n/a Negative - Negative POCT U PROT (test code = 3259) neg Negative - Negative POCT U GLU (test code = 3256) neg Negative - Negative POCT U KETONE (test code = 3258) n/a Negative - Negative POCT U BLD (test code = 3257) n/a Negative - Negative Lab Interpretation (test code = Normal 61808-8) [facility] URINALYSIS W/O SPECIFIC [id number] 14:21:00 Test Item Value Reference Range Interpretation Comments POCT PH U (test code = 3254) n/a 5-8 POCT U LEUK EST (test code = 3263) n/a Negative - Negative POCT U NIT (test code = 3262) n/a Negative - Negative POCT U PROT (test code = 3259) neg Negative - Negative POCT U GLU (test code = 3256) neg Negative - Negative POCT U KETONE (test code = 3258) n/a Negative - Negative POCT U BLD (test code = 3257) n/a Negative - Negative Lab Interpretation (test code = Normal 05661-4) [facility] URINALYSIS W/O SPECIFIC [id number] 21:59:00 Test Item Value Reference Range Interpretation Comments POCT PH U (test code = 3254) n/a 5-8 POCT U LEUK EST (test code = 3263) n/a Negative - Negative POCT U NIT (test code = 3262) n/a Negative - Negative POCT U PROT (test code = 3259) neg Negative - Negative POCT U GLU (test code = 3256) neg Negative - Negative POCT U KETONE (test code = 3258) n/a Negative - Negative POCT U BLD (test code = 3257) n/a Negative - Negative Lab Interpretation (test code = Normal 66777-5) [facility] URINALYSIS W/O SPECIFIC [id number] 21:59:00 Test Item Value Reference Range Interpretation Comments POCT PH U (test code = 3254) n/a 5-8 POCT U LEUK EST (test code = 3263) n/a Negative - Negative POCT U NIT (test code = 3262) n/a Negative - Negative POCT U PROT (test code = 3259) neg Negative - Negative POCT U GLU (test code = 3256) neg Negative - Negative POCT U KETONE (test code = 3258) n/a Negative - Negative POCT U BLD (test code = 3257) n/a Negative - Negative Lab Interpretation (test code = Normal 42856-4) [facility] URINALYSIS W/O SPECIFIC [id number] 15:04:00 Test Item Value Reference Range Interpretation Comments POCT PH U (test code = 3254) n/a 5-8 POCT U LEUK EST (test code = 3263) n/a Negative - Negative POCT U NIT (test code = 3262) n/a Negative - Negative POCT U PROT (test code = 3259) neg Negative - Negative POCT U GLU (test code = 3256) neg Negative - Negative POCT U KETONE (test code = 3258) n/a Negative - Negative POCT U BLD (test code = 3257) n/a Negative - Negative Lab Interpretation (test code = Normal 89978-8) [facility] URINALYSIS W/O SPECIFIC [id number] 15:04:00 Test Item Value Reference Range Interpretation Comments POCT PH U (test code = 3254) n/a 5-8 POCT U LEUK EST (test code = 3263) n/a Negative - Negative POCT U NIT (test code = 3262) n/a Negative - Negative POCT U PROT (test code = 3259) neg Negative - Negative POCT U GLU (test code = 3256) neg Negative - Negative POCT U KETONE (test code = 3258) n/a Negative - Negative POCT U BLD (test code = 3257) n/a Negative - Negative Lab Interpretation (test code = Normal 94962-7) [facility] URINALYSIS W/O SPECIFIC [id number] 14:21:00 Test Item Value Reference Range Interpretation Comments POCT PH U (test code = 3254) n/a 5-8 POCT U LEUK EST (test code = 3263) n/a Negative - Negative POCT U NIT (test code = 3262) n/a Negative - Negative POCT U PROT (test code = 3259) neg Negative - Negative POCT U GLU (test code = 3256) neg Negative - Negative POCT U KETONE (test code = 3258) n/a Negative - Negative POCT U BLD (test code = 3257) n/a Negative - Negative [facility] [id number] 14:21:00 Test Item Value Reference Range Interpretation Comments POCT PH U (test code = 3254) n/a 5-8 POCT U LEUK EST (test code = 3263) n/a Negative - Negative POCT U NIT (test code = 3262) n/a Negative - Negative POCT U PROT (test code = 3259) neg Negative - Negative POCT U GLU (test code = 3256) neg Negative - Negative POCT U KETONE (test code = 3258) n/a Negative - Negative POCT U BLD (test code = 3257) n/a Negative - Negative [facility]<14 WEEKS US [id number] 14:31:23[place] IUP at 8w2d by CRL measurement with cardiac activity of 167bpm. Normal ovaries bilaterallywith no adnexal masses or free fluid in the cul de sac.Dates are consistent with her Clinical datingbased on LMP Amanda Stevenson MDUnB[facility] CenterPO[facility] W/O SPECIFIC GRAVITY 2020-06-24 13:55:00 Test Item Value Reference Range Interpretation Comments POCT PH U (test code = 3254) n/a 5-8 POCT U LEUK EST (test code = 3263) n/a Negative - Negative POCT U NIT (test code = 3262) n/a Negative - Negative POCT U PROT (test code = 3259) neg Negative - Negative POCT U GLU (test code = 3256) neg Negative - Negative POCT U KETONE (test code = 3258) n/a Negative - Negative POCT U BLD (test code = 3257) n/a Negative - Negative Lab Interpretation (test code = Normal 43606-5) [facility]UR[facility] [id number] 16:39:16 Test Item Value Reference Range Interpretation Comments URINE CULTURE (test < 10,000 CFU/mL mixed code = 630-4) aerobic organisms - suggests endogenous microbial contamination [facility] [id number] 16:39:16 Test Item Value Reference Range Interpretation Comments URINE CULTURE (test < 10,000 CFU/mL mixed code = 630-4) aerobic organisms - suggests endogenous microbial contamination [facility] [id number] 16:39:16 Test Item Value Reference Range Interpretation Comments URINE CULTURE (test < 10,000 CFU/mL mixed code = 630-4) aerobic organisms - suggests endogenous microbial contamination [facility] [id number] 16:39:16 Test Item Value Reference Range Interpretation Comments URINE CULTURE (test < 10,000 CFU/mL mixed code = 630-4) aerobic organisms - suggests endogenous microbial contamination [facility] CenterANT[facility] TYPING [id number] 12:46:10 Test Item Value Reference Range Interpretation Comments ANTIGEN ID (test K Antigen Negative Perfo rmed at [facility] code = 1688) [facility] Blood [address] [address]Thqh Free: [phone] A No. [id number] ANTIGEN ID (test Fya Antigen Performed a t [facility] code = 5062) Positive [facility] Blood [address] [place] [address]Jkvt Free: [phone] A No. [id number] ANTIGEN ID (test Fyb Antigen Performed a t [facility] code = 5063) Negative [facility] Blood [address] [address]Osvb Free: [phone] A No. [id number] ANTIGEN ID (test Jka Antigen Performed a t [facility] code = 5064) Positive [facility] Blood [address] [place] [address]Mlhg Free: [phone] A No. [id number] ANTIGEN ID (test Jkb Antigen Performed a t [facility] code = 5065) Positive [facility] Blood [address] s [address]Koou Free: [phone] A No. [id number] ANTIGEN ID (test Brenda Antigen Performed a t [facility] code = 5066) Negative Laboratory [address] [address]Ogvy Free: [phone] A No. [id number] ANTIGEN ID (test Leb Antigen Performed a t [facility] code = 5067) Positive Laboratory [address] [address]Fajj Free: [phone] A No. [id number] ANTIGEN ID (test M Antigen Positive Perfo rmed at [facility] code = 5068) Laboratory [address] [address]Cxsf Free: [phone] A No. [id number] ANTIGEN ID (test N Antigen Negative Perfo rmed at [facility] code = 5069) Laboratory [address] [address]Wjwv Free: [phone] A No. [id number] ANTIGEN ID (test S Antigen Positive Perfo rmed at [facility] code = 5070) Laboratory [address] [address]Hwgn Free: [phone] A No. [id number] ANTIGEN ID (test s Antigen Positive Perfo rmed at [facility] code = 5071) Laboratory [address] [address]Ezpy Free: [phone] A No. [id number] ANTIGEN ID (test P1 Antigen Performed a t [facility] code = 5072) Positive Laboratory [address] [address]Wqlo Free: [phone] A No. [id number] [facility] CenterANT[facility] TYPING [id number] 12:46:10 Test Item Value Reference Range Interpretation Comments ANTIGEN ID (test K Antigen Negative Perfo rmed at [facility] code = 1688) Laboratory [address] [place] [address]Ctff Free: [phone] A No. [id number] ANTIGEN ID (test Fya Antigen Performed a t [facility] code = 5062) Positive Laboratory [address] [place] [address]Aarl Free: [phone] A No. [id number] ANTIGEN ID (test Fyb Antigen Performed a t [facility] code = 5063) Negative Laboratory [address] [place] [address]Idbt Free: [phone] A No. [id number] ANTIGEN ID (test Jka Antigen Performed a t [facility] code = 5064) Positive Laboratory [address] [address]Glwg Free: [phone] A No. [id number] ANTIGEN ID (test Jkb Antigen Performed a t [facility] code = 5065) Positive Laboratory [address] [place] [address]Cawf Free: [phone] A No. [id number] ANTIGEN ID (test Brenda Antigen Performed a t [facility] code = 5066) Negative Laboratory [address] [place] [address]Wdus Free: [phone] A No. [id number] ANTIGEN ID (test Leb Antigen Performed a t [facility] code = 5067) Positive Laboratory [address] [place] [address]Nsel Free: [phone] A No. [id number] ANTIGEN ID (test M Antigen Positive Perfo rmed at [facility] code = 5068) Laboratory [address] [place] [address]Sumx Free: [phone] A No. [id number] ANTIGEN ID (test N Antigen Negative Perfo rmed at [facility] code = 5069) Laboratory [address] , [place], [place] [address]Paaj Free: [phone] A No. [id number] ANTIGEN ID (test S Antigen Positive Perfo rmed at [facility] code = 5070) Laboratory [facility] Blood [address] [place] [address]Rwua Free: [phone] A No. [id number] ANTIGEN ID (test s Antigen Positive Perfo rmed at [facility] code = 5071) Laboratory [facility] Blood [address] [address]Alyl Free: [phone] A No. [id number] ANTIGEN ID (test P1 Antigen Performed a t [facility] code = 5072) Positive Laboratory [facility] Blood [address] [address]Uwmx Free: [phone] A No. [id number] [facility] CenterANT[facility] TYPING [id number] 12:46:10 Test Item Value Reference Range Interpretation Comments ANTIGEN ID (test K Antigen Negative Perfo rmed at [facility] code = 1688) Laboratory [address] [address]Urek Free: [phone] A No. [id number] ANTIGEN ID (test Fya Antigen Performed a t [facility] code = 5062) Positive Laboratory [address] [address]Sids Free: [phone] A No. [id number] ANTIGEN ID (test Fyb Antigen Performed a t [facility] code = 5063) Negative Laboratory [address] [address]Yxso Free: [phone] A No. [id number] ANTIGEN ID (test Jka Antigen Performed a t [facility] code = 5064) Positive Laboratory [facility] Blood [address] [address]Pqku Free: [phone] A No. [id number] ANTIGEN ID (test Jkb Antigen Performed a t [facility] code = 5065) Positive Laboratory [place] [address]Toll Free: [phone] A No. [id number] ANTIGEN ID (test Brenda Antigen Performed a t [facility] code = 5066) Negative Laboratory [place] [address]Toll Free: [phone] A No. [id number] ANTIGEN ID (test Leb Antigen Performed a t [facility] code = 5067) Positive Laboratory [place] [address]Toll Free: [phone] A No. [id number] ANTIGEN ID (test M Antigen Positive Perfo rmed at [facility] code = 5068) Laboratory [place] [address]Toll Free: [phone] A No. [id number] ANTIGEN ID (test N Antigen Negative Perfo rmed at [facility] code = 5069) Laboratory [place] [address]Toll Free: [phone] A No. [id number] ANTIGEN ID (test S Antigen Positive Perfo rmed at [facility] code = 5070) Laboratory [place] [address]Toll Free: [phone] A No. [id number] ANTIGEN ID (test s Antigen Positive Perfo rmed at [facility] code = 5071) Laboratory [place] [address]Toll Free: [phone] A No. [id number] ANTIGEN ID (test P1 Antigen Performed a t [facility] code = 5072) Positive Laboratory [place] [address]Toll Free: [phone] A No. [id number] [facility] CenterANT[facility] TYPING [id number] 12:46:10 Test Item Value Reference Range Interpretation Comments ANTIGEN ID (test K Antigen Negative Perfo rmed at [facility] code = 1688) Laboratory [address] [address]Lhmu Free: [phone] A No. [id number] ANTIGEN ID (test Fya Antigen Performed a t [facility] code = 5062) Positive Laboratory [address] [address]Nvoj Free: [phone] A No. [id number] ANTIGEN ID (test Fyb Antigen Performed a t [facility] code = 5063) Negative Laboratory [address] [address]Fbyj Free: [phone] A No. [id number] ANTIGEN ID (test Jka Antigen Performed a t [facility] code = 5064) Positive Laboratory [address] [address]Jhnf Free: [phone] A No. [id number] ANTIGEN ID (test Jkb Antigen Performed a t [facility] code = 5065) Positive Laboratory [address] [address]Etti Free: [phone] A No. [id number] ANTIGEN ID (test Bredna Antigen Performed a t [facility] code = 5066) Negative Laboratory [address] [address]Llzi Free: [phone] A No. [id number] ANTIGEN ID (test Leb Antigen Performed a t [facility] code = 5067) Positive Laboratory [address] [address]Mktt Free: [phone] A No. [id number] ANTIGEN ID (test M Antigen Positive Perfo rmed at [facility] code = 5068) Laboratory [facility] Blood [address] [place] [address]Eula Free: [phone] A No. [id number] ANTIGEN ID (test N Antigen Negative Perfo rmed at [facility] code = 5069) Laboratory [facility] Blood [address] [place] [address]Ynqk Free: [phone] A No. [id number] ANTIGEN ID (test S Antigen Positive Perfo rmed at [facility] code = 5070) Laboratory [facility] Blood [address] [place] [address]Fimy Free: [phone] A No. [id number] ANTIGEN ID (test s Antigen Positive Perfo rmed at [facility] code = 5071) Laboratory [facility] Blood [address] [address]Xeit Free: [phone] A No. [id number] ANTIGEN ID (test P1 Antigen Performed a t [facility] code = 5072) Positive Laboratory [facility] Blood [address] [place] [address]Vbds Free: [phone] A No. [id number] [facility] CenterPatient Rh [facility]igen [id number] 12:33:03 Test Item Value Reference Range Interpretation Comments ANTIGEN ID (test C Antigen Negative Perfo rmed at [facility] code = 1687) Laboratory [facility] Blood [address] [place] [address]Kfcx Free: [phone] A No. [id number] ANTIGEN ID (test E Antigen Positive Perfo rmed at [facility] code = 62) Laboratory [facility] Blood [address] [place] [address]Tzcc Free: [phone] A No. [id number] ANTIGEN ID (test c Antigen Positive Perfo rmed at [facility] code = 63) Laboratory [facility] Blood [address] [place] [address]Eclv Free: [phone] A No. [id number] [facility] Center[facility] Rh [facility]igen [id number] 12:33:03 Test Item Value Reference Range Interpretation Comments ANTIGEN ID (test C Antigen Negative Perfo rmed at [facility] code = 1687) Laboratory [address] [place] [address]Ejul Free: [phone] A No. [id number] ANTIGEN ID (test E Antigen Positive Perfo rmed at [facility] code = 62) Laboratory [facility] Blood [address] [place] [address]Uaht Free: [phone] A No. [id number] ANTIGEN ID (test c Antigen Positive Perfo rmed at [facility] code = 63) Laboratory [address] [address]Ywdm Free: [phone] A No. [id number] [facility] CenterPatient Rh [facility]igen [id number] 12:33:03 Test Item Value Reference Range Interpretation Comments ANTIGEN ID (test C Antigen Negative Perfo rmed at [facility] code = 1687) Laboratory [address] [place] [address]Sxxc Free: [phone] A No. [id number] ANTIGEN ID (test E Antigen Positive Perfo rmed at [facility] code = 62) Laboratory [facility] Blood [address] s [address]Zydm Free: [phone] A No. [id number] ANTIGEN ID (test c Antigen Positive Perfo rmed at [facility] code = 63) Laboratory [facility] Blood [address] [place] [address]Pyut Free: [phone] A No. [id number] [facility] CenterPatient Rh [facility]igen [id number] 12:33:03 Test Item Value Reference Range Interpretation Comments ANTIGEN ID (test C Antigen Negative Perfo rmed at [facility] code = 1687) [facility] Blood [address] [place] [address]Cclv Free: [phone] A No. [id number] ANTIGEN ID (test E Antigen Positive Perfo rmed at [facility] code = 62) [facility] [facility] [address] [place] [address]Lhzf Free: [phone] A No. [id number] ANTIGEN ID (test c Antigen Positive Perfo rmed at [facility] code = 63) Laboratory [facility] Blood [address] s [address]Vkif Free: [phone] A No. [id number] [facility] [id number] 12:31:08 Test Item Value Reference Range Interpretation Comments ANTIBODY ID (test Undetermined Spec Perfo rmed at [facility] code = 245) Laboratory [address] s [address]Ptkc Free: [phone] A No. [id number] [facility] [id number] 12:31:08 Test Item Value Reference Range Interpretation Comments ANTIBODY ID (test Undetermined Spec Perfo rmed at [facility] code = 245) Laboratory [address] [place] [address]Biei Free: [phone] A No. [id number] [facility] [id number] 12:31:08 Test Item Value Reference Range Interpretation Comments ANTIBODY ID (test Undetermined Spec Perfo rmed at [facility] code = 245) Laboratory [address] s [address]Ssmf Free: [phone] A No. [id number] [facility] [id number] 12:31:08 Test Item Value Reference Range Interpretation Comments ANTIBODY ID (test Undetermined Spec Perfo rmed at [facility] code = 245) Laboratory [facility] Blood [address] s [address]Ctty Free: [phone] A No. [id number] [facility] [id number] 12:29:58 Test Item Value Reference Range Interpretation Comments ANTIBODY ID (test Undetermined Spec Perfo rmed at [facility] code = 245) Laboratory Serv [address] s [address]Qrre Free: [phone] A No. [id number] [facility] [id number] 12:29:58 Test Item Value Reference Range Interpretation Comments ANTIBODY ID (test Undetermined Spec Perfo rmed at [facility] code = 245) Laboratory Serv [address] s [address]Sdyp Free: [phone] A No. [id number] [facility] [id number] 12:29:58 Test Item Value Reference Range Interpretation Comments ANTIBODY ID (test Undetermined Spec Perfo rmed at [facility] code = 245) Laboratory [facility] Blood [address] s [address]Hswp Free: [phone] A No. [id number] [facility] [id number] 12:29:58 Test Item Value Reference Range Interpretation Comments ANTIBODY ID (test Undetermined Spec Perfo rmed at [facility] code = 245) Laboratory Serv [address] s [address]Jfnv Free: [phone] A No. [id number] [facility] ONLY - [id number] 07:55:32 Test Item Value Reference Range Interpretation Comments RPR (Qualitative) (test code = Nonreactive Nonreactive 74170-1) Lab Interpretation (test code = Normal 72867-1) [facility] [place] - [id number] 07:55:32 Test Item Value Reference Range Interpretation Comments RPR (Qualitative) (test code = Nonreactive Nonreactive 84598-8) Lab Interpretation (test code = Normal 02717-4) [facility] [place] - [id number] 07:55:32 Test Item Value Reference Range Interpretation Comments RPR (Qualitative) (test code = Nonreactive Nonreactive 12999-7) Lab Interpretation (test code = Normal 66353-4) [facility] - [id number] 07:55:32 Test Item Value Reference Range Interpretation Comments RPR (Qualitative) (test code = Nonreactive Nonreactive 32513-3) Lab Interpretation (test code = Normal 60493-0) [facility] [id number] 23:57:30 Test Item Value Reference Range Interpretation Comments ANTIGEN ID (test K Antigen Negative Perfo rmed at [facility] code = 5066) Laboratory [facility] Blood [address] s [address]Tdlz Free: [phone] A No. [id number] [facility] [id number] 23:57:30 Test Item Value Reference Range Interpretation Comments ANTIGEN ID (test K Antigen Negative Perfo rmed at [facility] code = 5066) Laboratory [facility] Blood [address] s [address]Okvm Free: [phone] A No. [id number] [facility]ANT[facility] [id number] 23:57:30 Test Item Value Reference Range Interpretation Comments ANTIGEN ID (test K Antigen Negative Perfo rmed at [facility] code = 5066) Laboratory [facility] Blood [address] s [address]Zsow Free: [phone] A No. [id number] [facility] [id number] 23:57:30 Test Item Value Reference Range Interpretation Comments ANTIGEN ID (test K Antigen Negative Perfo rmed at [facility] code = 5066) Laboratory [facility] Blood Ban [address] s [address]Zpea Free: [phone] A No. [id number] [facility] Center[facility] WORK[facility], BLOOD [id number] 22:08:50 Test Item Value Reference Range Interpretation Comments ABO & RH (test code A POSITIVE Performe d at [facility] = 20) Laboratory [facility] Blood Bank[address] [place] [address] s [address]Qzju Free: [phone] A No. [id number] IAT (test code = Positive Performed a t [facility] 1185) Laboratory [facility] Blood [address] s [address]Xbtl Free: [phone] A No. [id number] [facility], BLOOD [id number] 22:08:50 Test Item Value Reference Range Interpretation Comments ABO & RH (test code A POSITIVE Performe d at [facility] = 20) Laboratory [facility] Blood [address] [address]Kjad Free: [phone] A No. [id number] IAT (test code = Positive Performed a t [facility] 1185) Laboratory [facility] Blood [address] s [address]Umnl Free: [phone] A No. [id number] [facility], BLOOD [id number] 22:08:50 Test Item Value Reference Range Interpretation Comments ABO & RH (test code A POSITIVE Performe d at [facility] = 20) Laboratory [facility] Blood [address] s [address]Sqzq Free: [phone] A No. [id number] IAT (test code = Positive Performed a t [facility] 1185) Laboratory [facility] Blood [address] [place] [address] s [address]Ghpc Free: [phone] A No. [id number] [facility], BLOOD [id number] 22:08:50 Test Item Value Reference Range Interpretation Comments ABO & RH (test code A POSITIVE Performe d at [facility] = 20) Laboratory [facility] Blood [address] [place] [address] s [address]Tlom Free: [phone] A No. [id number] IAT (test code = Positive Performed a t [facility] 1185) Laboratory [facility] Blood [facility] [place] [address] [address] [place] [address]Wuku Free: [phone] A No. [id number] [facility] CenterHCV [id number] 21:26:40 Test Item Value Reference Range Interpretation Comments HCV Ab (test code = 03874-8) Negative HCV Semi-Quantitative (test code = 27507-6) [facility] [id number] 21:26:40 Test Item Value Reference Range Interpretation Comments HCV Ab (test code = 24202-8) Negative HCV Semi-Quantitative (test code = 69133-2) [facility] [id number] 21:26:40 Test Item Value Reference Range Interpretation Comments HCV Ab (test code = 97103-5) Negative HCV Semi-Quantitative (test code = 76759-9) [facility] [id number] 21:26:40 Test Item Value Reference Range Interpretation Comments HCV Ab (test code = 92570-5) Negative HCV Semi-Quantitative (test code = 35042-0) [facility]HEP[facility] SURFACE [id number] 21:09:38 Test Item Value Reference Range Interpretation Comments HBsAg Semi-Quantitative (test code = Negative Negative 5195-3) [facility] B SURFACE [id number] 21:09:38 Test Item Value Reference Range Interpretation Comments HBsAg Semi-Quantitative (test code = Negative Negative 5195-3) [facility] B SURFACE [id number] 21:09:38 Test Item Value Reference Range Interpretation Comments HBsAg Semi-Quantitative (test code = Negative Negative 5195-3) [facility] B SURFACE [id number] 21:09:38 Test Item Value Reference Range Interpretation Comments HBsAg Semi-Quantitative (test code = Negative Negative 5195-3) [facility]2 AG-AB WITH [id number] 18:43:23 Test Item Value Reference Range Interpretation Comments HIV Negative Negative Semi-quantitative (test code = 31849-5) YAZAN (test code = Non-reactive for HIV-1 YAZAN) antigen and HIV-1/HIV-2 antibodies. ?No laboratory evidence of HIV infection. ?Repeat in 2-4 weeks if acute HIV infection is suspected. [facility] WITH [id number] 18:43:23 Test Item Value Reference Range Interpretation Comments HIV Negative Negative Semi-quantitative (test code = 11425-4) YAZAN (test code = Non-reactive for HIV-1 YAZAN) antigen and HIV-1/HIV-2 antibodies. ?No laboratory evidence of HIV infection. ?Repeat in 2-4 weeks if acute HIV infection is suspected. [facility] 1/2 AG-AB WITH [id number] 18:43:23 Test Item Value Reference Range Interpretation Comments HIV Negative Negative Semi-quantitative (test code = 25413-8) YAZAN (test code = Non-reactive for HIV-1 YAZAN) antigen and HIV-1/HIV-2 antibodies. ?No laboratory evidence of HIV infection. ?Repeat in 2-4 weeks if acute HIV infection is suspected. [facility] WITH [id number] 18:43:23 Test Item Value Reference Range Interpretation Comments HIV Negative Negative Semi-quantitative (test code = 99357-4) YAZAN (test code = Non-reactive for HIV-1 YAZAN) antigen and HIV-1/HIV-2 antibodies. ?No laboratory evidence of HIV infection. ?Repeat in 2-4 weeks if acute HIV infection is suspected. [facility] [id number] 16:41:28 Test Item Value Reference Range Interpretation Comments GLUC 1 HR (test code = 5228427826) 88 mg/dL 120-170 L Lab Interpretation (test code = Abnormal 76941-6) [facility] [id number] 16:41:28 Test Item Value Reference Range Interpretation Comments GLUC 1 HR (test code = 9882555978) 88 mg/dL 120-170 L Lab Interpretation (test code = Abnormal 96037-0) [facility]GL[facility] H[facility] [id number] 16:41:28 Test Item Value Reference Range Interpretation Comments GLUC 1 HR (test code = 7424761641) 88 mg/dL 120-170 L Lab Interpretation (test code = Abnormal 37545-7) [facility] [id number] 16:41:28 Test Item Value Reference Range Interpretation Comments GLUC 1 HR (test code = 5181503048) 88 mg/dL 120-170 L Lab Interpretation (test code = Abnormal 06650-7) [facility] CenterCBC WITH [id number] 16:36:46 Test Item Value Reference Range Interpretation Comments WBC (test code = See_Comment [Automated message] 4790-2) The system [employer] generated this result transmitted ref erence range: 4.30 - 1 1.10 10*3/?L. The re ference range was not u sed to interpret this result as normal/abnor mal. RBC (test code = See_Comment [Automated message] 729-8) The system [employer] generated this result transmitted ref erence range: 3.93 - 5 .25 10*6/?L. The re ference range was not u sed to interpret this result as normal/abnor mal. HGB (test code = 12.4 g/dL 11.6-15.0 718-7) HCT (test code = 38.8 % 35.7-45.2 4544-3) MCV (test code = 92.4 fL 80.6-95.5 787-2) MCH (test code = 29.5 pg 25.9-32.8 785-6) MCHC (test code = 32.0 g/dL 31.6-35.1 786-4) RDW-SD (test code 45.8 fL 39.0-49.9 = 32516-2) RDW-CV (test code 13.4 % 12.0-15.5 = 788-0) PLT (test code = See_Comment [Automated message] 407-3) The system [employer] generated this result transmitted ref erence range: 166 - 35 8 10*3/?L. The re ference range was not u sed to interpret this result as normal/abnor mal. MPV (test code = 10.4 fL 9.5-12.9 24516-4) NRBC/100 WBC (test See_Comment [Automat ed message] code = 8311071219) The syste m which generated this result transmitted ref erence range: 0.0 - 10 .0 /100 WBCs. The refer ence range was not u sed to interpret this result as normal/abnor mal. NRBC x10^3 (test <0.01 See_Comment [Automated message] code = 2609667508) The syste m which generated this result transmitted ref erence range: 10*3/?L. The reference range was not used to interpr et this result as normal/abnormal . GRAN MAT (NEUT) % 59.3 % (test code = 770-8) IMM GRAN % (test 0.30 % code = 9892132015) LYMPH % (test code 30.1 % = 736-9) MONO % (test code 6.4 % = 5905-5) EOS % (test code = 3.4 % 713-8) BASO % (test code 0.5 % = 706-2) GRAN MAT 3.88 10*3/uL 1.88-7.09 x10^3(ANC) (test code = 7147894221) IMM GRAN x10^3 <0.03 0.00-0.06 (test code = 1079360894) LYMPH x10^3 (test 1.97 10*3/uL 1.32-3.29 code = 731-0) MONO x10^3 (test 0.42 10*3/uL 0.33-0.92 code = 742-7) EOS x10^3 (test 0.22 10*3/uL 0.03-0.39 code = 711-2) BASO x10^3 (test 0.03 10*3/uL 0.01-0.07 code = 704-7) [facility] WITH [id number] 16:36:46 Test Item Value Reference Range Interpretation Comments WBC (test code = See_Comment [Automated message] 6690-2) The system whic h generated this result transmitted ref erence range: 4.30 - 1 1.10 10*3/?L. The re ference range was not u sed to interpret this result as normal/abnor mal. RBC (test code = See_Comment [Automated message] 789-8) The system [employer] generated this result transmitted ref erence range: 3.93 - 5 .25 10*6/?L. The re ference range was not u sed to interpret this result as normal/abnor mal. HGB (test code = 12.4 g/dL 11.6-15.0 718-7) HCT (test code = 38.8 % 35.7-45.2 4544-3) MCV (test code = 92.4 fL 80.6-95.5 787-2) MCH (test code = 29.5 pg 25.9-32.8 785-6) MCHC (test code = 32.0 g/dL 31.6-35.1 786-4) RDW-SD (test code 45.8 fL 39.0-49.9 = 06575-7) RDW-CV (test code 13.4 % 12.0-15.5 = 788-0) PLT (test code = See_Comment [Automated message] 777-3) The system [employer] generated this result transmitted ref erence range: 166 - 35 8 10*3/?L. The re ference range was not u sed to interpret this result as normal/abnor mal. MPV (test code = 10.4 fL 9.5-12.9 92552-3) NRBC/100 WBC (test See_Comment [Automat ed message] code = 5984299833) The syste m which generated this result transmitted ref erence range: 0.0 - 10 .0 /100 WBCs. The refer ence range was not u sed to interpret this result as normal/abnor mal. NRBC x10^3 (test <0.01 See_Comment [Automated message] code = 3327698943) The syste m which generated this result transmitted ref erence range: 10*3/?L. The reference range was not used to interpr et this result as normal/abnormal . GRAN MAT (NEUT) % 59.3 % (test code = 770-8) IMM GRAN % (test 0.30 % code = 0267229363) LYMPH % (test code 30.1 % = 736-9) MONO % (test code 6.4 % = 5905-5) EOS % (test code = 3.4 % 713-8) BASO % (test code 0.5 % = 706-2) GRAN MAT 3.88 10*3/uL 1.88-7.09 x10^3(ANC) (test code = 9906587664) IMM GRAN x10^3 <0.03 0.00-0.06 (test code = 7918389403) LYMPH x10^3 (test 1.97 10*3/uL 1.32-3.29 code = 731-0) MONO x10^3 (test 0.42 10*3/uL 0.33-0.92 code = 742-7) EOS x10^3 (test 0.22 10*3/uL 0.03-0.39 code = 711-2) BASO x10^3 (test 0.03 10*3/uL 0.01-0.07 code = 704-7) [facility] WITH [id number] 16:36:46 Test Item Value Reference Range Interpretation Comments WBC (test code = See_Comment [Automated message] 6390-2) The system [employer] generated this result transmitted ref erence range: 4.30 - 1 1.10 10*3/?L. The re ference range was not u sed to interpret this result as normal/abnor mal. RBC (test code = See_Comment [Automated message] 959-8) The system [employer] generated this result transmitted ref erence range: 3.93 - 5 .25 10*6/?L. The re ference range was not u sed to interpret this result as normal/abnor mal. HGB (test code = 12.4 g/dL 11.6-15.0 718-7) HCT (test code = 38.8 % 35.7-45.2 4544-3) MCV (test code = 92.4 fL 80.6-95.5 787-2) MCH (test code = 29.5 pg 25.9-32.8 785-6) MCHC (test code = 32.0 g/dL 31.6-35.1 786-4) RDW-SD (test code 45.8 fL 39.0-49.9 = 73905-8) RDW-CV (test code 13.4 % 12.0-15.5 = 788-0) PLT (test code = See_Comment [Automated message] 777-3) The system whic h generated this result transmitted ref erence range: 166 - 35 8 10*3/?L. The re ference range was not u sed to interpret this result as normal/abnor mal. MPV (test code = 10.4 fL 9.5-12.9 42187-3) NRBC/100 WBC (test See_Comment [Automat ed message] code = 4625343504) The syste m which generated this result transmitted ref erence range: 0.0 - 10 .0 /100 WBCs. The refer ence range was not u sed to interpret this result as normal/abnor mal. NRBC x10^3 (test <0.01 See_Comment [Automated message] code = 9810273401) The syste m which generated this result transmitted ref erence range: 10*3/?L. The reference range was not used to interpr et this result as normal/abnormal . GRAN MAT (NEUT) % 59.3 % (test code = 770-8) IMM GRAN % (test 0.30 % code = 4654147218) LYMPH % (test code 30.1 % = 736-9) MONO % (test code 6.4 % = 5905-5) EOS % (test code = 3.4 % 713-8) BASO % (test code 0.5 % = 706-2) GRAN MAT 3.88 10*3/uL 1.88-7.09 x10^3(ANC) (test code = 5997409140) IMM GRAN x10^3 <0.03 0.00-0.06 (test code = 5536334672) LYMPH x10^3 (test 1.97 10*3/uL 1.32-3.29 code = 731-0) MONO x10^3 (test 0.42 10*3/uL 0.33-0.92 code = 742-7) EOS x10^3 (test 0.22 10*3/uL 0.03-0.39 code = 711-2) BASO x10^3 (test 0.03 10*3/uL 0.01-0.07 code = 704-7) [facility] WITH [id number] 16:36:46 Test Item Value Reference Range Interpretation Comments WBC (test code = See_Comment [Automated message] 6690-2) The system [employer] generated this result transmitted ref erence range: 4.30 - 1 1.10 10*3/?L. The re ference range was not u sed to interpret this result as normal/abnor mal. RBC (test code = See_Comment [Automated message] 789-8) The system [employer] generated this result transmitted ref erence range: 3.93 - 5 .25 10*6/?L. The re ference range was not u sed to interpret this result as normal/abnor mal. HGB (test code = 12.4 g/dL 11.6-15.0 718-7) HCT (test code = 38.8 % 35.7-45.2 4544-3) MCV (test code = 92.4 fL 80.6-95.5 787-2) MCH (test code = 29.5 pg 25.9-32.8 785-6) MCHC (test code = 32.0 g/dL 31.6-35.1 786-4) RDW-SD (test code 45.8 fL 39.0-49.9 = 98175-1) RDW-CV (test code 13.4 % 12.0-15.5 = 788-0) PLT (test code = See_Comment [Automated message] 777-3) The system [employer] generated this result transmitted ref erence range: 166 - 35 8 10*3/?L. The re ference range was not u sed to interpret this result as normal/abnor mal. MPV (test code = 10.4 fL 9.5-12.9 61372-6) NRBC/100 WBC (test See_Comment [Automat ed message] code = 5159659495) The [employer] which generated this result transmitted ref erence range: 0.0 - 10 .0 /100 WBCs. The refer ence range was not u sed to interpret this result as normal/abnor mal. NRBC x10^3 (test <0.01 See_Comment [Automated message] code = 0884315019) The syste m which generated this result transmitted ref erence range: 10*3/?L. The reference range was not used to interpr et this result as normal/abnormal . GRAN MAT (NEUT) % 59.3 % (test code = 770-8) IMM GRAN % (test 0.30 % code = 6937818827) LYMPH % (test code 30.1 % = 736-9) MONO % (test code 6.4 % = 5905-5) EOS % (test code = 3.4 % 713-8) BASO % (test code 0.5 % = 706-2) GRAN MAT 3.88 10*3/uL 1.88-7.09 x10^3(ANC) (test code = 2172148420) IMM GRAN x10^3 <0.03 0.00-0.06 (test code = 1147758198) LYMPH x10^3 (test 1.97 10*3/uL 1.32-3.29 code = 731-0) MONO x10^3 (test 0.42 10*3/uL 0.33-0.92 code = 742-7) EOS x10^3 (test 0.22 10*3/uL 0.03-0.39 code = 711-2) BASO x10^3 (test 0.03 10*3/uL 0.01-0.07 code = 704-7) [facility] [id number] 13:27:00 Test Item Value Reference Range Interpretation Comments Transfusion Medicine See Narrative DMT Interp (test code = 9957027646) YAZAN (test code = Transfusion Medicine YAZAN) Resident: Immunohematology Interpretation Patient Name: Catrachito Landaverde of Service: 05/28/2020PT: 23090 ICD-10: Z01.84 Patient History:Catrachito Landaverde is a 24-year-old female, at 5w2d presenting for her initial visit. ?The patient's transfusion history outside of [facility] is unknown. Transfusion History per [facility]: None ABO & Rh: A positive Previous Antibodies Identified:None Antibodies Identified, Current Sample: ?Antibody of Undetermined Specificity (AUS) reacting with 2 of 21 panel cells tested RBC Phenotype Positive For: c,E; Fya; Jka,Jkb; M,S,s; P1 RBC Phenotype Negative For: C; K; Fyb; N Assessment:At this time, an antibody of undetermined specificity was identified. The clinical significance of an antibody of undetermined specificity (AUS) is unknown. It may simply represent nonspecific laboratory findings or may indicate the early development of new antibodies. The clinical significance of an AUS in the setting of is also unknown. Monitoring of the fetus for development of clinical signs/symptoms or laboratory findings of hemolytic disease of the fetus and (HDFN) is appropriate. Clinical correlation is recommended. ? Plan: - The patient will receive crossmatch compatible packed red blood cells if transfusion is indicated.- Please allow for additional time to find compatible units. - Please monitor for signs of hemolytic disease of the fetus and .-If any elective surgery is scheduled, please reach out to Blood Bank to request this patient get Typenex banding 48 hrs before the procedure. - For assistance, please contact the Transfusion Medicine service. Gloria Villa DO, PGY-1Blood Bank/Transfusion MedicinePager# [phone] [facility] [id number] 16:03:00 Test Item Value Reference Range Interpretation Comments POCT PREG (test code = 1605) Negative On board controls acceptable with C Yes Line (test code = 3574) POCT PREG LOT # (test code = 3575) POCT PREG TEST DATE (test code = 3576) [facility]PO[facility] [id number] 16:03:00 Test Item Value Reference Range Interpretation Comments POCT PREG (test code = 1605) Negative On board controls acceptable with C Yes Line (test code = 3574) POCT PREG LOT # (test code = 3575) POCT PREG TEST DATE (test code = 3576) [facility]
[2022-12-31] MEDS ORDERED: LORazepam 2 MG/ML VIAL ONE (00:27)
[2022-12-31] MEDS ORDERED: NA CHLORIDE 0.9% 1,000 ML ONE ×2 (00:27→01:23)
[2022-12-31 00:30] LABS: Absolute Lymphocytes (CBC) 1.5 K/uL (0.7-4.9); Hematocrit 34.5 % (36.0-45.0); Lymphocytes % 14.8 % (15.3-44.8); MCV 86.1 fL (80-100); Platelets 308 thou/uL (152-406); RBC Red Blood Cell Count 4.01 M/uL (3.86-4.86)
[2022-12-31 00:48] LABS: ALT/SGPT 30 U/L (13-56); AST/SGOT 13 U/L (15-37); Albumin 3.7 g/dL (3.4-5.0); Alkaline Phosphatase 73 U/L (45-117); BUN Blood Urea Nitrogen 10 mg/dL (7-18); Bicarbonate 23 mEq/L (21-32); Bilirubin Total 0.4 mg/dL (0.2-1.0); Glomerular Filtration Rate 65 ml/min (=/>90); Glucose Level 206 mg/dL (74-106); Lipase 43 U/L (13-75); Potassium 3.5 mEq/L (3.5-5.1); Protein, Total 6.9 g/dL (6.4-8.2); Sodium Level 136 mEq/L (136-145); Troponin High Sensitivity 3.1 pg/mL (<58.9)
[2022-12-31 00:49] LABS: Bilirubin Direct < 0.1 mg/dL (0-0.2); Bilirubin Indirect, Calculated ND mg/dL (0.2-0.8)
--- NOTE | 2022-12-31 03:28 | ER ---
Nurse's Notes [facility] Name: Pauline Bender Age: 27 yrs Sex: Female : 1995 Arrival Date: 12/30/2022 Time: 23:29 Bed 20 Private MD: Diagnosis: Conversion disorder with mixed symptom presentation Presentation: 12/30 23:52 Chief complaint: Patient states: "I don't feel good" Spouse and/or significant other km8 states: vomiting started 1 hour ago; last night had a panic attack that seemed to trigger intermittent chest pain, left arm numbness, bilateral feet numbness, head numbness, chills, and multiple syncopal episodes; pt denies any pain at this time. Coronavirus screen: Client denies travel out of the [place] in the last 14 days. At this time, the client does not indicate any symptoms associated with coronavirus-19. Ebola Screen: No symptoms or risks identified at this time. Initial Sepsis Screen: Does the patient meet any 2 criteria? RR > 20 per min. HR > 90 bpm. Yes Does the patient have a suspected source of infection? No. Patient's initial sepsis screen is negative. Risk Assessment: Do you want to hurt yourself or someone else? Patient reports no desire to harm self or others. Onset of symptoms was December 29, 2022. 23:52 Method Of Arrival: Wheelchair km8 23:52 Acuity: BARBY 3 km8 Triage Assessment: 23:55 General: Appears in no apparent distress. comfortable, Behavior is cooperative, flat. km8 Pain: Denies pain. EENT: No deficits noted. No signs and/or symptoms were reported regarding the EENT system. Neuro: Schuler Agitation-Sedation Scale (RASS): -1 Drowsy Level of Consciousness is obeys commands, listless, Reports numbness in head, bilateral feet, and left arm since yesterday a syncopal episode. Cardiovascular: No deficits noted. Denies chest pain, Capillary refill < 3 seconds Patient's skin is warm and dry. Parent/caregiver reports patient has had chest pain, since starting last night. Respiratory: No deficits noted. Airway is patent Respiratory effort is even, unlabored, Respiratory pattern is symmetrical, hypoventilation. GI: No deficits noted. dry heaving Reports nausea, vomiting, Patient currently denies abdominal pain, Parent/caregiver reports the patient having vomiting. : No deficits noted. No signs and/or symptoms were reported regarding the genitourinary system. Derm: No deficits noted. No signs and/or symptoms reported regarding the dermatologic system. Skin is intact, is healthy with good turgor, Skin is dry, Skin is normal, Skin temperature is warm. Musculoskeletal: No deficits noted. No signs and/or symptoms reported regarding the musculoskeletal system. Circulation, motion, and sensation intact. Range of motion: intact in all extremities. 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 - Social history:: Smoking status: Reported history of juuling and/or vaping. Patient/guardian denies using alcohol, street drugs. Screenin/20 03:58 [facility] ED Fall Risk Assessment (Adult) History of falling in the last 3 months, jb4 including since admission No falls in past 3 months (0 pts) Confusion or Disorientation No (0 pts) Score/Fall Risk Level 0 - 2 = Low Risk Oriented to surroundings, Maintained a safe environment. Abuse screen: Denies threats or abuse. Nutritional screening: No deficits noted. Tuberculosis screening: No symptoms or risk factors identified. Assessment: 01:00 Reassessment: Pt resting in bed with eyes closed, respirations are even and unlabored jb4 with no s/s of pain or distress noted. 02:07 Reassessment: Pt is resting in bed with eyes closed, respirations are even and jb4 unlabored with no s/s of pain or distress noted. 03:00 Reassessment: Patient appears in no apparent distress at this time. No changes from jb4 previously documented assessment. Patient and/or family updated on plan of care and expected duration. Pain level reassessed. 03:58 Reassessment: Patient appears in no apparent distress at this time. Patient and/or jb4 family updated on plan of care and expected duration. Pain level reassessed. Patient is alert, oriented x 3, equal unlabored respirations, skin warm/dry/pink. Pt assisted to vehicle via wheelchair. Vital Signs: 12/30 23:52 BP 101 / 49; Pulse 120; Resp 35; Temp 98.4(O); Pulse Ox 99% on R/A; Weight 108.86 kg km8 (R); Height 5 ft. 7 in. (R); Pain 0/10; 12/31 01:04 BP 95 / 51; Pulse 85; Resp 25; Pulse Ox 98% on R/A; jb4 02:00 BP 110 / 66; Pulse 81; Resp 22; Pulse Ox 98% on R/A; jb4 12/30 23:52 Body Mass Index 37.59 (108.86 kg, 170.18 cm) km8 12/30 23:52 Pain Scale: Adult [facility] ED Course: 12/30 23:30 Patient arrived in ED. ag3 23:40 Racheal Verduzco PA-C is PHCP. sb4 23:40 Christian Mc MD is Attending Physician. sb4 23:55 Triage completed. km8 23:55 Arm band placed on right wrist. km8 12/31 00:45 Head Brain Wo Cont CT In Process Unspecified. EDMS 00:50 Notified Nurse Practitioner and/or Physician Steel Tester of a critical lab result(s), kl lactate 2.2. 03:28 Lazaro Betancourt MD is Referral Physician. sb4 03:58 Patient has correct armband on for positive identification. Bed in low position. Call jb4 light in reach. Side rails up X 1. 03:58 No provider procedures requiring assistance completed. IV discontinued, intact, jb4 bleeding controlled, No redness/swelling at site. Pressure dressing applied. Administered Medications: 00:19 Drug: NS 0.9% IV 1000 ml IV at 1 bolus Per protocol; 1000 mL bolus Route: IV; Rate: 1 jb4 bolus; Site: right forearm; 00:19 Drug: Ativan IVP 1 mg IVP once Route: IVP; Site: right forearm; jb4 01:13 Drug: NS 0.9% IV 1000 ml IV at 1 bolus Per protocol; 1000 mL bolus Route: IV; Rate: 1 jb4 bolus; Site: right antecubital; Outcome: 03:28 Discharge ordered by . sb4 03:58 Discharged to home via wheelchair, with family, jb4 03:58 Condition: stable 03:58 Discharge instructions given to family, Instructed on discharge instructions, follow up and referral plans. medication usage, Demonstrated understanding of instructions, follow-up care, medications, Prescriptions given X 2, 03:59 Patient left the ED. jb4 Signatures: Dispatcher [employer] EDMS Georgia Alanis RN RN Uriah Choudhury RN RN jb4 Vikki Nowak Sophia PAAshly PA-C [email or web address] Dominique Bradley RN RN km8
--- NOTE | 2022-12-31 03:28 | EDPHYS ---
Physician Documentation [facility] Name: Pauline Bender Age: 27 yrs Sex: Female : 1995 Arrival Date: 12/30/2022 Time: 23:29 Bed 20 Private MD: ED Physician Christian Mc HPI: 12/31 02:01 This 27 yrs old Female presents to ER via Wheelchair with complaints of Syncope, sb4 Vomiting. 02:01 Patient comes in with with multiple vague complaints. states that she sb4 was laid off from her job recently and has been experiencing some panic attacks. He states that last night she was experiencing 1 and complaining of some numbness and tingling in her hands. This evening when they were going to bed, he states that it started to happen again and she started to complain of chest pain, left arm pain, and was disassociating. She denies any medication use. She is not very cooperative during my assessment. Cannot verbalize her complaints. CCNP: 12/30 23:55 LMP 12/24/2022, unknown km8 Historical: - Allergies: 23:55 NKA; km8 - Home Meds: 23:55 oral control [Active]; km8 - PMHx: 23:55 None; km8 - PSHx: 23:55 None; km8 - Immunization history:: Adult Immunizations up to date, Flu vaccine is not up to date. - Social history:: Smoking status: Reported history of juuling and/or vaping. Patient/guardian denies using alcohol, street drugs. ROS: 12/31 02:01 Constitutional: Negative for fever, chills, and weight loss, sb4 Abdomen/GI: Positive for nausea and vomiting, Neuro: Positive for altered mental status, numbness, syncope, All other systems are negative, Exam: 02:07 Head/Face: Normocephalic, atraumatic. Eyes: Extra-ocular motions intact. Periorbital sb4 areas with no swelling, redness, or edema. Skin: Warm, dry with normal turgor. Normal color with no rashes, no lesions, and no evidence of cellulitis. MS/ Extremity: Pulses equal, no cyanosis. Neurovascular intact. Full, normal range of motion. Neuro: Awake and alert, GCS 15, oriented to person, place, time, and situation. Motor strength 5/5 in all extremities. Sensory grossly intact. 02:07 Constitutional: The patient appears alert, awake, agitated, obese, uncooperative 02:07 Cardiovascular: Rate: tachycardic, Rhythm: regular, Pulses: no pulse deficits are appreciated, 02:07 Psych: Behavior/mood is uncooperative, delirious, Judgement / Insight is impaired. Vital Signs: 12/30 23:52 BP 101 / 49; Pulse 120; Resp 35; Temp 98.4(O); Pulse Ox 99% on R/A; Weight 108.86 kg km8 (R); Height 5 ft. 7 in. (R); Pain 0/10; 12/31 01:04 BP 95 / 51; Pulse 85; Resp 25; Pulse Ox 98% on R/A; jb4 02:00 BP 110 / 66; Pulse 81; Resp 22; Pulse Ox 98% on R/A; jb4 12/30 23:52 Body Mass Index 37.59 (108.86 kg, 170.18 cm) [facility] 12/30 23:52 Pain Scale: Adult [facility] MDM: 12/30 23:40 Patient medically screened. sb4 12/31 02:07 Differential Diagnosis: cardiac arrhythmia, cerebrovascular accident, drug effect, sb4 emotional response, idiopathic syncope, , pseudo seizure. 03:27 Data reviewed: vital signs, nurses notes, lab test result(s), EKG, radiologic studies, sb4 and as a result, I will discharge patient. Consideration of Admission/Observation Escalation of care including admission/observation considered. Historians other than the Patient: Spouse/Significant Other: . Counseling: I had a detailed discussion with the patient and/or guardian regarding the historical points, exam findings, and any diagnostic results supporting the discharge/admit diagnosis, lab results, radiology results, the need for outpatient follow up, a psychiatrist, to return to the emergency department if symptoms worsen or persist or if there are any questions or concerns that arise at home. 12/30 23:53 Order name: Acetaminophen; Complete Time: 00:50 sb4 12/30 23:53 Order name: Basic Metabolic Panel; Complete Time: 00:50 sb4 12/30 23:53 Order name: CBC with Diff; Complete Time: 00:37 sb4 12/30 23:53 Order name: ETOH Level; Complete Time: 00:50 sb4 12/30 23:53 Order name: Hepatic Function; Complete Time: 00:50 sb4 12/30 23:53 Order name: Salicylate; Complete Time: 00:50 sb4 12/30 23:53 Order name: Troponin High Sensitivity; Complete Time: 00:50 sb4 12/30 23:53 Order name: Lipase; Complete Time: 00:50 sb4 12/30 23:56 Order name: Lactate w/ 2H reflex if indic.; Complete Time: 00:50 sb4 12/30 23:56 Order name: Blood Culture Adult (2) sb4 12/31 03:41 Order name: Lactate Sepsis 2 HR Follow-up EDMS 12/30 23:53 Order name: Head Brain Wo Cont CT sb4 12/30 23:53 Order name: EKG; Complete Time: 23:54 sb4 12/30 23:53 Order name: EKG - Nurse/Tech; Complete Time: 00:31 sb4 12/30 23:53 Order name: IV Saline Lock; Complete Time: 00:31 sb4 12/30 23:53 Order name: Labs collected and sent; Complete Time: 01:06 sb4 EC/19 23:56 Rate is 119 beats/min. Rhythm is regular, Sinus tachycardia. DE interval is normal at sb4 162 msec. QRS interval is normal at 86 msec. QT interval is normal at 340 msec. No Q waves. T waves are Normal. Clinical impression: Sinus tachycardia and No evidence of ischemia. Interpreted by me. Reviewed by me. Administered Medications: 12/31 00:19 Drug: NS 0.9% IV 1000 ml IV at 1 bolus Per protocol; 1000 mL bolus Route: IV; Rate: 1 jb4 bolus; Site: right forearm; 00:19 Drug: Ativan IVP 1 mg IVP once Route: IVP; Site: right forearm; jb4 01:13 Drug: NS 0.9% IV 1000 ml IV at 1 bolus Per protocol; 1000 mL bolus Route: IV; Rate: 1 jb4 bolus; Site: right antecubital; Disposition Summary: 12/31/22 03:28 Discharge Ordered Notes: Location: Home sb4 Problem: new sb4 Symptoms: have improved sb4 Condition: Stable sb4 Diagnosis - Conversion disorder with mixed symptom presentation sb4 Followup: sb4 - With: Lazaro Betancourt MD - When: 1 - 2 days - Reason: Recheck today's complaints, Re-evaluation by your physician Discharge Instructions: - Discharge Summary Sheet sb4 - Conversion Disorder sb4 Forms: - Medication Reconciliation Form sb4 - Thank You Letter sb4 - Antibiotic Education sb4 - Prescription Opioid Use sb4 - Patient Portal Instructions sb4 - Leadership Thank You Letter sb4 Prescriptions: - Hydroxyzine HCl 25 mg Oral Tablet - take 1 tablet ORAL route every 6 hours As needed; 30 tablet; Refills: 0, sb4 Product Selection Permitted - Zofran 4 mg Oral Tablet - take 1 tablet ORAL route every 12 hours As needed; 20 tablet; Refills: 0, sb4 Product Selection Permitted Addendum: 01/01/2023 04:41 Co-signature as Attending Physician, Christian Mc MD. e c2 Signatures: Dispatcher [employer] EDNE Uriah Ruiz, RN RN jb4 Racheal Verduzco, PA-C PA-C sb4 Christian Mc MD MD ec2 Dominique Bradley RN RN km8 Corrections: (The following items were deleted from the chart) 12/31 03:14 02:05 LACTATE+[id number].LAB.BRZ ordered. [facility] EDNE
[2022-12-31 04:04] VITALS: TEMP 98.4
[2022-12-31 04:05] VITALS: O2SAT 98
[2022-12-31 04:06] VITALS: BP 110/66
--- NOTE | 2022-12-31 14:41 | EKG ---
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
--- NOTE | 2022-12-31 19:24 | RAD REPORT ---
EXAM DESCRIPTION: CT - Head Brain Wo Cont - 12/31/2022 3:29 am CLINICAL HISTORY: CONFUSED TECHNIQUE: Axial computed tomography images of the head/brain without intravenous contrast. Sagitt al and coronal reformatted images were created and reviewed. This CT exam was performed using one o r more of the following dose reduction techniques: automated exposure control, adjustment of the mA and/or kV according to patient size, and/or use of iterative reconstruction technique. COMPARISON: CT Head dated 09/12/2017 FINDINGS: Brain: Unremarkable. No hemorrhage. No significant white matter disease. No edema. Ventricles: Unremarkable. No ventriculomegaly. Bones/joints: Unremarkable. No acute fracture. Soft tissues: Unremarkable. Sinuses: Unremarkable as visualized. No acute sinusitis. Mastoid air cells: Unremarkable as visualized. No mastoid effusion. IMPRESSION: No acute hemorrhage, focal mass or large territory infarction. Electronically signed by: Rosaura Smith MD 12/31/2022 1:43 AM CDT Due to temporary technical issues with the PACS/Fluency reporting system, reports are being signed by the in house radiologists without review as a courtesy to insure prompt reporting. The interpreting radiologist is fully responsible for the content of the report.
== END 2022-12-31 03:59 | disposition home or self-care (01) ==
LOC: ER 23:29
DX: F44.7 Conversion disorder with mixed symptom presentation (principal)
CPT/HCPCS: 93005; 87040 ×2; 85025; 80048; 36415; 80076; 83605 ×2; 84484; 83690; 70450; 96374; 99284; 80143; 80179; 82077; J7030 ×2